=== PATIENT | female | born 1990 | race Caucasian/White ===

== ENCOUNTER 2017-10-07 05:10 | Inpatient (IN) | payer BC, SELFPAY ==
[2017-10-07] VITALS (19 sets, daily range): BP systolic 97–128; BP diastolic 34–82; PULSE 71–98; RESP 11–20; TEMP 36.3–37.3; O2SAT 97–100; BMI 30.9
[2017-10-07] MEDS: Lactated Ringers 1,000 ML 999 ML IV (05:55)
[2017-10-07 06:22] LABS: Absolute Lymphocyte Count 1.85 X10^3/ul (0.83-4.51); Absolute Neutrophil Count 6.2 X10^3/uL (2.0-7.7); Basophil# 0.02 X10^3/uL; Basophil% 0.2 % (0-1); Eosinophil# 0.08 X10^3/uL; Eosinophils% 0.9 % (0-5); Hematocrit 31.5 % (37-47); Hemoglobin 9.9 g/dl (12.0-15.0); Lymphocyte # 1.85 X10^3/ul (4.0); Lymphocyte % 20.3 % (19-41); Mean Corp Hgb Conc 31.4 g/gl (32-36); Mean Corpuscular Hgb 26.5 pg (27.0-32.0); Mean Corpuscular Volume 84.2 fL (81-99); Mean Platelet Vol. 8.7 fl (6.2-12.0); Monocyte# 0.92 X10^3/uL; Monocyte% 10.1 % (0-10); Neutrophil # 6.18 X10^3/uL (2.7-7.7); Platelet Count 266 K/mm3 (150-450); RBC Distribution Width CV 14.3 % (11.6-14.6); RBC Distribution Width SD 42.5 fl (35.1-43.9); Red Blood Count 3.74 M/mm3 (4.2-5.4); White Blood Count 9.1 K/mm3 (4.4-11.0)
[2017-10-07 06:23] LABS: POSITIVE COUNT NO; POSITIVE DIFFERENTIAL NO; POSITIVE MORPHOLOGY NO
[2017-10-07] MEDS: Lactated Ringers 1,000 ML 150 ML IV (06:57)
[2017-10-07] MEDS: Sodium Citrate/Citric Acid 30 ML UDC PO (06:58)
[2017-10-07] MEDS: Cefazolin 2 GM in 0.9% Normal Saline 100 ML IV (07:25)
[2017-10-07] MEDS: Oxytocin 30 units/NS 500 ml 30 UNITS/500 ML IV.SOLN 167 UNITS IV (07:49)
--- NOTE | 2017-10-07 08:25 | PCM.OB.CSR ---
Delivery Classification: Scheduled Final GEENA: 10/14/17 Final GEENA Source: US <20 weeks Gestational age: 39 Weeks and 0 Days Indications for : Repeat Elective Description of Procedure: The patient was taken to the operating room. She was prepped and draped in the dorsal supine position with a leftward tilt. A Pfannenstiel skin incision was made approximately 2 cm above the symphysis pubis and carried through to underlying layer fascia with the scalpel. The fascia was incised incised in the midline and extended laterally with the Mcmahan scissors. The fascia was dissected off the rectus muscles with blunt and sharp dissection. The rectus muscles were in the midline and the peritoneum was entered [bluntly]. The peritoneal incision was stretched and the bladder blade was placed. The uterine incision was made in a low transverse fashion with the scalpel and extended superiorly and inferiorly with blunt dissection. [The amniotic membranes were ruptured bluntly and clear amniotic fluid returned]. The 's head was brought to the incision in the flexed position and delivered without difficulty. The remainder of the infant was delivered with gentle traction and fundal pressure in the standard fashion. The mouth and nares were bulb suctioned. The cord was clamped and cut as the was stimulated. [Cord clamping was delayed]. The infant was handed off to the waiting nursing staff. The placenta was delivered with fundal massage and gentle traction in the standard fashion. The uterus was exteriorized and cleared of all clots and debris. [The cervix was dilated with a ring forcep]. The uterine incision was closed with #1 Vicryl in a running locked fashion. A second layer of the same suture was used in an imbricating fashion and the incision was examined for hemostasis. The uterus was placed back into the peritoneal cavity and hemostasis was assured. The rectus muscles were examined and any bleeding was Bovie cauterized. The parietal peritoneum and rectus muscles were closed en bloc with an 0 Vicryl running suture.. The rectus fascia was examined and the bleeding was Bovie cauterized and the rectus fascia was closed with [1 Vicryl] suture in a running standard fashion. The subcutaneous tissue was examining and any bleeding was Bovie cauterized. The skin was closed in a subcuticular fashion with a 4-0 Monocryl in a subcuticular fashion. I performed the entire procedure with assistance.. All sponge, lap, and needle counts were correct. The patient was taken to her room for recovery in a stable condition. Amniotic Membrane Rupture Type: Artificial Amniotic Fluid Description: Clear Placenta Disposition: [facility] Specimen(s) sent to pathology: none Drain: Hearn to straight drain Fluids Replaced: LR Cord Entanglement: None Cord Vessel Description: 3 Vessels Esitmated Blood Loss (ml): 900cc Infant Gender: Male (1 minute): 8 (5 minute): 9 Delayed cord clamping: Yes Pre-op Antibiotic Given: Ancef 2 grams IV x1 Complications: None - Admit VTE Documentation VTE Present on Admission: No VTE Mechan Device Prophylaxis: SCD's VTE Pharm Prophylaxis ordered?: No Reason prophylaxis not ordered:: Procedure Not Indicated
[2017-10-07] MEDS: Methylergonovine 0.2 MG/ML Ampul IM (08:47)
--- NOTE | 2017-10-07 09:00 | NURSING ---
moderate amount of clots expelled with uterine massage. Iv bolus at 999cc/hr. Pad a weighed, 101cc blood loss. Methergine 0.2 mg given at 0847.
[2017-10-07] MEDS: Lactated Ringers 1,000 ML 100 ML IV (09:13)
[2017-10-07] MEDS: DiphenhydrAMINE 25 MG Capsule PO ×2 (11:50→20:27)
[2017-10-07] MEDS: 0.9% Saline Lock 10 ML Syringe IV ×4 (11:50→18:21)
[2017-10-07] MEDS: Ketorolac 30 MG/ML Syringe IV ×2 (11:50→18:21)
[2017-10-07] MEDS: Ondansetron 4 MG/2 ML Vial IV (12:32)
[2017-10-08] VITALS (7 sets, daily range): BP systolic 103–126; BP diastolic 68–77; PULSE 85–103; RESP 16–18; TEMP 36.6–36.8; O2SAT 97–100
[2017-10-08] MEDS: Ketorolac 30 MG/ML Syringe IV ×4 (00:18→17:40)
[2017-10-08] MEDS: Senna/Docusate Sodium 1 Tablet PO ×3 (00:18→21:31)
[2017-10-08] MEDS: 0.9% Saline Lock 10 ML Syringe IV ×5 (00:19→17:48)
[2017-10-08 06:25] LABS: Hematocrit 25.9 % (37-47); Hemoglobin 8.2 g/dl (12.0-15.0); Mean Corp Hgb Conc 31.7 g/gl (32-36); Mean Corpuscular Hgb 27.1 pg (27.0-32.0); Mean Corpuscular Volume 85.5 fL (81-99); Mean Platelet Vol. 8.5 fl (6.2-12.0); Platelet Count 224 K/mm3 (150-450); RBC Distribution Width CV 14.2 % (11.6-14.6); Red Blood Count 3.03 M/mm3 (4.2-5.4); White Blood Count 10.6 K/mm3 (4.4-11.0)
[2017-10-08 06:30] LABS: Scan Indicated on CBC? Y/N NO
--- NOTE | 2017-10-08 06:46 | PCM.PN.OB ---
Subjective: pain well controlled, average lochia, joseph. regular diet - Physical Exam General: Alert, Cooperative, No apparent distress Abdomen: Soft, Distended - moderately, softly, Tender - appropriately Extremities: Edema - 1! Skin: Incision - bandage clean, dry and intact Vital Signs Temp Pulse Resp BP Pulse Ox 98 F 90 16 103/68 98 10/08/17 05:30 10/08/17 05:30 10/08/17 05:30 10/08/17 05:30 10/08/17 05:30 Oxygen Delivery Method Room Air Weight: 79.2 kg Body Mass Index (BMI) 30.9 Intake and Output for Last 24 Hours 10/06/17 10/07/17 10/08/17 23:59 23:59 23:59 Intake Total 3904 / 3904 Output Total 3651 / 3651 1800 / 1800 Balance 253 / 253 -1800 / -1800 Laboratory Tests Past 24 Hrs 10/07/17 10/08/17 05:55 05:40 WBC 10.6 RBC 3.03 L Hgb 8.2 L Hct 25.9 L MCV 85.5 MCH 27.1 MCHC 31.7 L RDW 14.2 RDW Differential 43.0 Plt Count 224 MPV 8.5 Blood Type B POSITIVE Antibody Screen NEGATIVE Medical Necessity - Tobacco Use Smoking Status: Never smoker Assessment/Plan All Active Problems (Last Reviewed 10/04/17 @ 10:05 by Francie Rivers) Segmental and somatic dysfunction of thoracic region (Acute) Segmental and somatic dysfunction of sacral region (Acute) Segmental and somatic dysfunction of cervical region (Acute) Segmental and somatic dysfunction of lumbar region (Acute) POD#1 doing well routine care and doing well
[2017-10-09] MEDS: Ketorolac 30 MG/ML Syringe IV (00:20)
[2017-10-09] MEDS: 0.9% Saline Lock 10 ML Syringe IV (00:20)
[2017-10-09 02:55] VITALS: BP 101/56; PULSE 97; RESP 18; TEMP 36.6; O2SAT 95
[2017-10-09] MEDS: Naproxen 250 MG Tablet PO (05:34)
[2017-10-09 07:44] VITALS: BP 112/60; PULSE 79; RESP 18; TEMP 36.7; O2SAT 97
--- NOTE | 2017-10-09 09:27 | PCM.DCCSEC ---
Discharge Diet: No Restrictions Discharge Activity: May Not Drive - for 2 weeks or while taking narcotic pain meds., May Shower, May Take a Tub Bath - in 7 days. May resume sexual activity in: 4-6 weeks Lifting Restrictions: 20 pounds Additional Activity Instructions:: Nothing in the vagina for 4-6 weeks. You may return to work/school in 6 weeks. Call your doctor if your incision/area has: Continuous Slow Oozing, Sudden Increased Bleeding, Increased Pain/ Swelling, Increased Redness, Foul Smelling Discharge Call your doctor if you observe: Fever of 101 or Higher, Inability to urinate, Inability to have a bowel movement, Using more than one pad per hour, Calf discomfort Suture Line Care: Avoid Pulling/Pushing, Avoid Pinching/Bending Remove Dressing in (days):: 2 Cleanse incision/area with: Soap & Water, Keep Dressing Clean & Dry Additional Instructions: If you experience any of the following, contact your healthcare provider. Bleeding that soaks a pad every hour for 2 hours Fever 100.4 or higher Unrelieved incision or abdominal pain Swelling, redness, discharge or bleeding from your incision or episiotomy site Your incision begins to separate Problems urinating (including inability to urinate or burning while urinating). Visual changes Severe headache Flu-like symptoms Pain or redness in one of both of your breasts Pain, warmth, tenderness or swelling in your legs, especially the calf area Frequent nausea and vomiting Symptoms of depression or anxiety If you experience any of the following, call 911 or go to the nearest Emergency Room. Chest pain Problems breathing Seizure activity Partial or complete paralysis of a body part, slurred speech, weakness or drooping of the face, or a sudden inability to walk or hold your balance Allergies/Adverse Reactions: Allergies tree nut Allergy (Verified 10/07/17 06:24) Unknown Medications to take at Discharge Acetaminophen [Tylenol Tablet] 325 - 650 mg PO Q6H PRN PRN 04/01/16 Vits [Prenatabs FA ] 1 tablet PO DAILY 04/01/16 Follow-Up: Call to make an appointment with your doctor for an incision check in 1-2 weeks. You will also need a 6 week post- follow up appointment. Test results from this visit will be discussed in further detail at your follow-up appointment, if applicable. Please Follow Up With: Milagro Alonso MD - Incision Check When: By 2 weeks post- - if Dr. Alonso unavailable may see other provider Please Follow Up With: Milagro Alonso MD - 6 wk PP visit When: By 6 weeks post- - If Dr. Alonso unavailable may see other provider Primary Care Physician: Benny Diego DO [Primary Care Provider] - Proposed Discharge Date: 10/09/17
--- NOTE | 2017-10-09 09:30 | DCINST_ITS ---
Discharge Diet: No Restrictions Discharge Activity: May Not Drive - for 2 weeks or while taking narcotic pain meds., May Shower, May Take a Tub Bath - in 7 days. May resume sexual activity in: 4-6 weeks Lifting Restrictions: 20 pounds Additional Activity Instructions:: Nothing in the vagina for 4-6 weeks. You may return to work/school in 6 weeks. Call your doctor if your incision/area has: Continuous Slow Oozing, Sudden Increased Bleeding, Increased Pain/ Swelling, Increased Redness, Foul Smelling Discharge Call your doctor if you observe: Fever of 101 or Higher, Inability to urinate, Inability to have a bowel movement, Using more than one pad per hour, Calf discomfort Suture Line Care: Avoid Pulling/Pushing, Avoid Pinching/Bending Remove Dressing in (days):: 2 Cleanse incision/area with: Soap & Water, Keep Dressing Clean & Dry Additional Instructions: If you experience any of the following, contact your healthcare provider. * Bleeding that soaks a pad every hour for 2 hours * Fever 100.4 or higher * Unrelieved incision or abdominal pain * Swelling, redness, discharge or bleeding from your incision or episiotomy site * Your incision begins to separate * Problems urinating (including inability to urinate or burning while urinating) . * Visual changes * Severe headache * Flu-like symptoms * Pain or redness in one of both of your breasts * Pain, warmth, tenderness or swelling in your legs, especially the calf area * Frequent nausea and vomiting * Symptoms of depression or anxiety If you experience any of the following, call 911 or go to the nearest Emergency Room. * Chest pain * Problems breathing * Seizure activity * Partial or complete paralysis of a body part, slurred speech, weakness or drooping of the face, or a sudden inability to walk or hold your balance Allergies/Adverse Reactions: Allergies tree nut Allergy (Verified 10/07/17 06:24) Unknown Medications to take at Discharge Acetaminophen [Tylenol Tablet] 325 - 650 mg PO Q6H PRN PRN 04/01/16 Vits [Prenatabs FA ] 1 tablet PO DAILY 04/01/16 Follow-Up: Call to make an appointment with your doctor for an incision check in 1-2 weeks. You will also need a 6 week post- follow up appointment. Test results from this visit will be discussed in further detail at your follow- up appointment, if applicable. Please Follow Up With: Milagro Alonso MD - Incision Check When: By 2 weeks post- - if Dr. Alonso unavailable may see other provider Please Follow Up With: Milagro Alonso MD - 6 wk PP visit When: By 6 weeks post- - If Dr. Alonso unavailable may see other provider Primary Care Physician: Benny Diego DO [Primary Care Provider] - Proposed Discharge Date: 10/09/17
--- NOTE | 2017-10-09 09:39 | PCM.PN.OB ---
Subjective: Patient ambulating around room at this time. at bedside holding at this time. Patient denies RANGEL, dizziness and scotoma. Patient notes no issue with urination or ambulation. Patient has constipated last night, but after taking stool softener she has been able to pass stool without any issue and is no longer constipated. Incisional pain has been well controlled, tolerating PO Naproxyn in managing pain. Patient and report a desire for discharge today. Objective: Nipples with cracks, blisters or ecchymoses Abdomen NT x 4 quadrants, Dressing dry and intact without areas of exudate or blood on dressing +2/4 reflexes in LE, no edema noted, negative calf tenderness reported BL Scant rubra lochia - Physical Exam General: Alert, Oriented x3, Cooperative HEENT: Atraumatic, Normocephalic Neck: Supple Lungs: Normal air movement Cardiovascular: Regular rate, No murmurs Abdomen: Soft, Non Tender, Non-Distended Extremities: No edema, Capillary Refill Less than 3 Seconds, No Calf Tenderness Skin: No rashes, No breakdown Musculoskeletal: No Tenderness to Palpation of Joints or Extremities Neurological: Cranial nerves II-XII grossly intact, Deep Tendon Reflexes 2+/4 and Symmetrical Psych/Mental Status: Normal Affect, Appropriate, Alert and oriented to time, place, person, mood and affect Vital Signs Temp Pulse Resp BP Pulse Ox 98.1 F 79 18 112/60 97 10/09/17 07:44 10/09/17 07:44 10/09/17 07:44 10/09/17 07:44 10/09/17 07:44 Oxygen Delivery Method Room Air Weight: 174 lb 9.698 oz Body Mass Index (BMI) 30.9 Intake and Output for Last 24 Hours 10/07/17 10/08/17 10/09/17 23:59 23:59 23:59 Intake Total 3904 / 3904 Output Total 3651 / 3651 3000 / 3000 Balance 253 / 253 -3000 / -3000 Medical Necessity - Tobacco Use Smoking Status: Never smoker Assessment/Plan All Active Problems (Last Reviewed 10/04/17 @ 10:05 by Francie Rivers) Segmental and somatic dysfunction of thoracic region (Acute) Segmental and somatic dysfunction of sacral region (Acute) Segmental and somatic dysfunction of cervical region (Acute) Segmental and somatic dysfunction of lumbar region (Acute) A: 27 y/o , s/p LTCS, PPD # 2, Normal Course P: 1) Discharge to home pending discharge 2) Anticipatory PP teaching done 3) RTC in 2 and 6 weeks for f/u visits at [facility] Theodora SAUCEDA
--- NOTE | 2017-10-13 19:50 | NURSING ---
follow up call attempted, phone disconncted
== END 2017-10-09 10:50 | disposition home or self-care (01) | DRG 766 ==
PROVIDERS: Obstetrics & Gynecology; Admitting Provider Obstetrics & Gynecology; Family Provider Student in an Organized Health Care Education/Training Program; PCP Student in an Organized Health Care Education/Training Program; Visit Provider Obstetrics & Gynecology
PROC: (CPT 59514; principal; 2017-10-07 07:15)
DX: O34.211 Maternal care for low transverse scar from previous cesarean delivery (principal); Z3A.39 39 weeks gestation of pregnancy; Z37.0 Single live birth
CPT/HCPCS: 85025; 85027; 86850; 86900; 99218; J7120; A4216; G0378; J2405

== ENCOUNTER 2018-10-10 14:46 | Emergency (ER) | payer BC, SELFPAY ==
[2018-10-10 14:50] VITALS: BP 146/82; PULSE 110; RESP 16; TEMP 36.7; O2SAT 97; BMI 26.5
--- NOTE | 2018-10-10 16:00 | ED.RN ---
PT HAS MADE MULTIPLE TRIPS DOWN THE HALLWAY TO THE BATHROOM WITHOUT DIFFICULTY.
[2018-10-10 16:39] VITALS: PULSE 86; RESP 16; O2SAT 99
--- NOTE | 2018-10-10 16:57 | ED.VISSUMM ---
- ER Visit Summary Date of Service: 10/10/18 Chief Complaint: [Back pain] History of Present Illness: The patient is a 28 F [presents to the emergency department complaint of back pain that started yesterday. Patient states she woke up with some soreness in the lower mid back. Patient states the discomfort slowly worsened throughout the day. Patient describes pain of an odd numb feeling to both lower extremities. She denies any change in bowel or bladder function. She denies any saddle anesthesia. She denies weakness in extremities. She denies urinary symptoms. She denies any trauma to her back. She has not had pain like this before. She denies any fever or recent illness. Patient is currently nursing a 1-year-old and has used ibuprofen and Tylenol but not getting much relief. Patient rates her pain currently as a 3 out of 10.] Physical Examination: [HEENT-PERRLA, EOMI. Cranial nerves II through XII grossly intact. TMs clear. Mucous membranes moist. No adenopathy. Cardiovascular-regular rate and rhythm without murmur or ectopy Lungs-clear to auscultation, chest wall stable without crepitus or subcu emphysema Abdomen-normoactive bowel sounds, soft, nontender, no rebound or rigidity, no peritoneal signs. Back exam-patient has no real tenderness over the thoracic or lumbar spine on palpation. There is no erythema or warmth noted to her back. Patient has negative straight leg raises. Deep tendon reflexes are plus 2 out of 4 bilaterally at the patella and Achilles. Patient has normal L5 extension bilaterally. Extremities-intact ?4, normal range of motion, normal pulses, atraumatic] Test Results: [None indicated] Emergency Department Course and Treatment: [I discussed obtaining an x-ray with patient given that she did have complaint of discomfort in the midline of her lumbar spine although without any injury I felt this would be low yield for ascertaining etiology of her pain. We discussed obtaining it to evaluate for any type of potential lytic lesion but she understands that it would not show nerves her discs. At this point patient is patient understands she would need an MRI to evaluate for herniated disks. Patient has no indication for emergent MRI and no concerning red flag symptoms. Patient has no signs or symptoms of cauda equina.] Treatment Plan: [Patient will be given a prescription for a Medrol Dosepak. Patient will continue with ibuprofen or Aleve for discomfort. Patient will follow up with her primary care physician. Patient advised to return if worsening pain, weakness in extremities, change in bowel bladder function, or conditions worsen anyway.] Disposition: [Discharged home stable condition] Impression: [Low back pain] This note was generated with [employer] dictation software. It may contain incorrect words, spelling, and punctuation that were not noted in review of the chart prior to signing ED Disposition - Plan for ED Patient: Referrals: Benny Diego DO [Primary Care Provider] -
--- NOTE | 2018-10-10 17:01 | ED.DEP ---
ED Disposition - Plan for ED Patient: Instructions: BACK AND NECK PAIN, General Prescriptions: MethylPREDNISolone DosePak [Medrol DosePak] 4 mg PO UD #1 box Prescription Printed Referrals: Benny Diego DO [Primary Care Provider] - 3-5 Days
[2018-10-10 17:10] VITALS: BP 136/78; PULSE 87; RESP 16; O2SAT 100
== END 2018-10-10 17:16 | disposition home or self-care (01) ==
LOC: ED 17:13
PROVIDERS: Emergency Provider Emergency Medicine; Family Provider Student in an Organized Health Care Education/Training Program; PCP Student in an Organized Health Care Education/Training Program
DX: M54.5 Low back pain (principal)
CPT/HCPCS: 99282

== ENCOUNTER 2019-03-04 17:00 | Emergency (ER) | payer BC, SELFPAY ==
[2018-11-13 17:17] VITALS: BMI 26.5
[2019-03-04 17:02] VITALS: BP 149/96; PULSE 115; RESP 16; TEMP 36.6; O2SAT 99; BMI 23.9
--- NOTE | 2019-03-04 18:05 | ED.DCSUM_ITS ---
- ER Visit Summary Date of Service: 03/04/19 Chief Complaint: Laceration History of Present Illness: The patient is a 28 F with a right laceration. Patient is 16 weeks . Up-to-date with immunizations. Physical Examination: 2 cm laceration transverse across the middle phalanx. Nothing deep. Neurovascular intact distally. Test Results: None indicated Emergency Department Course and Treatment: Will anesthetize, clean, explored, and closed with simple interrupted sutures. Follow-up in about 10 days for suture removal. Return for signs of infection right away. Treatment Plan: As above Disposition: Discharge Impression: 1. Right thumb laceration 2 cm This note was generated with [employer] dictation software. It may contain incorrect words, spelling, and punctuation that were not noted in review of the chart prior to signing ED Disposition - Plan for ED Patient: Referrals: Benny Diego DO [Primary Care Provider] -
--- NOTE | 2019-03-04 18:06 | ED.DEP ---
ED Disposition - Plan for ED Patient: Instructions: LACERATION, Hand Referrals: Benny Diego DO [Primary Care Provider] - 10 Day for suture removal
== END 2019-03-04 18:53 | disposition home or self-care (01) ==
PROVIDERS: Emergency Provider Emergency Medicine; Family Provider Student in an Organized Health Care Education/Training Program; PCP Student in an Organized Health Care Education/Training Program
DX: O9A.212 Injury, poisoning and certain other consequences of external causes complicating pregnancy, second trimester (principal); S61.011A Laceration without foreign body of right thumb without damage to nail, initial encounter; Z3A.16 16 weeks gestation of pregnancy; X58.XXXA Exposure to other specified factors, initial encounter; Y93.9 Activity, unspecified; Y92.9 Unspecified place or not applicable
CPT/HCPCS: 12001; 99283

== ENCOUNTER 2019-08-14 06:42 | Inpatient (IN) | payer BC, SELFPAY ==
[2019-03-13 10:03] VITALS: BMI 23.9
--- NOTE | 2019-08-06 15:51 | PCM.HP.BLA ---
History and Physical Date of Admission: 08/16/19 HPI: The patient is a 29 year old female presenting for pre-operative visit. She is scheduled for?, for?prevoius c/s on?08/16/2019. ??Procedure discussed along with risks, benefits and complications. ?Other alternatives discussed for management. Consent form signed??Yes.? PAST MEDICAL HISTORY PAST MEDICAL HISTORY Diagnosis Date ? Abnormal Pap smear of cervix 2011 ? Pt unsure of treatment , believes it was cryo ? Anemia ? ? Complication of anesthesia ? ? N&V ? Seasonal allergies ? ? ? PAST SURGICAL HISTORY PAST SURGICAL HISTORY Procedure Laterality Date ? BREAST AUGMENTATION W/PROSTHETIC IMPLANT ? ? ? DELIVERY ONLY N/A 04/01/2016 ? DELIVERY ONLY ? 10/07/2017 ? C/S transverse ? CRYOCAUTERY OF CERVIX ? ? ? PAST SURGICAL HISTORY OF ? 2011 ? lymph node under chin removed ? REMOVAL ADENOIDS,PRIMARY,<12 Y/O ? ? ? Adenoidectomy ? REMOVAL OF TONSILS,<12 Y/O ? ? ? Tonsillectomy ? ? CURRENT MEDICATIONS Current Outpatient Medications Medication Sig Dispense Refill ? cetirizine (ZYRTEC) 10 mg tablet ? diphenhydrAMINE (BENADRYL) 25 mg capsule diphenhydrAMINE Diphenhydramine Hcl Active 25 MG AT BEDTIME November 13, 2018 5:15pm 11-13-2018 ?[facility] ([id number]) ? ? ? cholecalciferol, vitamin D3, (VITAMIN D3 ORAL) Take 5,000 Units by mouth once daily. ? ? ? EPINEPHrine (EPIPEN 2-ARCHANA) 0.3 mg/0.3 mL auto-injector DIRECTED AT ONSET OF EXPOSURE TO ALLERGEN 2 Each 1 ? VIT/IRON FUMARATE/FA ( FORMULA & FOLIC ACD ORAL) Take ?by mouth. ? ? ? No current facility-administered medications for this visit.? ? ALLERGIES:?Bee Pollen; Seasonal Allergies; Tree Nuts ? PERSONAL HISTORY:? SOCIAL HISTORY Social History ? Tobacco Use ? Smoking status: Never Smoker ? Smokeless tobacco: Never Used Substance Use Topics ? Alcohol use: Not Currently ? ? Comment: social, not while ? Drug use: No ? FAMILY HISTORY:? FAMILY HISTORY FAMILY HISTORY Problem Relation Age of Onset ? No Known Problems Mother ? ? Lipids Father ? ? Hypertension Father ? ? other (basal cell ca) Father ? ? No Known Problems Brother ? ? No Known Problems Brother ? ? Blood Disease Maternal Grandmother ? ? Osteoporosis Maternal Grandmother ? ? Arthritis Paternal Grandmother ? ? Colon Cancer Paternal Grandmother ? ? Heart Paternal Grandmother ?a fib, leaky valve ? Hypertension Paternal Grandmother ? ? Alzheimer's Disease Paternal Grandfather ? ? Allergies Maternal Uncle ? ? Thyroid Paternal Aunt ? ? No Known Problems Daughter ? ? Heart Son ?Bicuspid aortic valve and mild aortic stenosis ? REVIEW OF SYMPTOMS: GENERAL: denies fevers or chills ENDOCRINOLOGY: has not been on steroids Cardiology : denies palpitations or chest pain Respiratory: denies SOB or cough Hematology: denies history of prolonged bleeding or easy bruising or VTE Allergy: Denies history of personal or family history of allergy to anesthesia ? ? PHYSICAL EXAMINATION: ? VITALS:?Last menstrual period 11/09/2018, not currently . ? GENERAL:??The patient is well nourished, well hydrated in no acute distress. ?, The patient is oriented to time, place, and person. NECK:?Supple. No lynphadenopathy, normal thyroid, no thyromegaly. LUNGS:?Clear to auscultation bilaterally. no wheezes, rhonchi or rales HEART:?Regular rate and rhythm, Normal heart sounds and No murmurs or gallops GENITALIA:?Normal external genitalia, Urethral meatus normal, Bladder nontender, normal vagina and normal vaginal tone, normal cervix, normal uterus, size and consistency, normal adnexa without masses or tenderness and perineum WNL ? ? IMPRESSION:?Estimated Date of Delivery: 08/20/19? ? PLAN:???The risks/benefits/alternatives and personal involved for the planned?c/s?were reviewed with the patient. Her questions were answered to her satisfaction and she desires to proceed. ?Consent was signed. ?I reviewed with her postop instructions and expectations. ? ? I have reviewed and updated past medical and surgical history, medications and allergies. This H&P was completed in my office on 08/06/2019. Procedure Criteria Procedure Type: Essential Procedure Essential: Yes Criteria Statement: On 05/22/2019 the [facility] ([facility]) Public Order signed by [facility] Director Lula Epps M.D., regarding the Management of Non-Essential Surgeries and Procedures for the purpose of preserving Personal Protective Equipment (PPE) and critical hospital capacity and resources within [place] went into effect as of 05/23/2019 at 5:00PM. According to the [facility] Public Order: This action will remain in full force and effect until the State of Emergency declared by the Governor no longer exists or the Director of the [facility] rescinds or modifies this Order. This [facility] order stated all non-essential or elective surgeries and procedures that utilize PPE should be delayed unless there is undue risk to the current or future health of a patient. After reviewing the aforementioned [facility] Public Order and the patient's clinical case, I have determined that the scheduled procedure meets the criteria to go forward. Risk to Patient if Procedure Delayed: Threat to patient's life if surgery or procedure is delayed
[2019-08-09 14:44] VITALS: BMI 23.9
[2019-08-14] VITALS (34 sets, daily range): BP systolic 96–139; BP diastolic 61–90; PULSE 82–116; RESP 15–18; TEMP 36.5–36.9; O2SAT 93–98; BMI 31.8
[2019-08-14] MEDS: Lactated Ringers 1,000 ML 50 ML IV (07:00)
[2019-08-14 07:15] LABS: Absolute Lymphocyte Count 1.44 X10^3/uL (0.83-4.51); Basophil# 0.03 X10^3/uL; Basophil% 0.3 % (0-1); Eosinophil# 0.04 X10^3/uL; Eosinophils% 0.4 % (0-5); Hematocrit 41.5 % (37-47); Hemoglobin 14.2 g/dL (12.0-15.0); Lymphocyte # 1.44 X10^3/ul (4.0); Lymphocyte % 12.7 % (19-41); Mean Corp Hgb Conc 34.2 g/dL (32-36); Mean Corpuscular Hgb 33.3 pg (27.0-32.0); Mean Corpuscular Volume 97.2 fL (81-99); Mean Platelet Vol. 8.5 fl (6.2-12.0); Monocyte# 0.78 X10^3/uL; Monocyte% 6.9 % (0-10); NRBC Flagged by Analyzer 0 % (0-5); Neutrophil # 8.95 X10^3/uL (2.7-7.7); Neutrophil % 79.2 % (47-70); Platelet Count 193 K/mm3 (150-450); RBC Distribution Width CV 13.2 % (11.6-14.6); RBC Distribution Width SD 46.6 fl (35.1-43.9); Red Blood Count 4.27 M/mm3 (4.2-5.4); White Blood Count 11.3 K/mm3 (4.4-11.0)
[2019-08-14] MEDS: 0.9% Saline Lock 10 ML Syringe IV (09:07)
[2019-08-14] MEDS: Ondansetron 4 MG/2 ML Vial IV (09:07)
[2019-08-14] MEDS: Oxytocin 30 units/NS 500 ml 30 UNITS/500 ML IV.SOLN 334 UNITS IV (11:20)
--- NOTE | 2019-08-14 11:57 | PCM.OPRPT ---
Problem List (1) , delivered Status: Acute (2) Second degree perineal laceration Status: Acute (3) Laceration of labia minora Status: Acute Vaginal Delivery Maternal Presentation: Active Labor Amniotic Membrane Rupture Type: Artificial Amniotic Fluid Description: Clear Final GEENA: 08/20/19 Final GEENA Source: US <20 weeks Gestational age: 39 Weeks and 1 Days Date of Procedure: 08/14/19 Pre-Operative Diagnosis: Spontaneous labor TOLAC after 2 sections Post-Operative Diagnosis: Surgery/ Procedure Performed: Spontaneous Vaginal Delivery Type of Anesthesia: Epidural - Epidural placed due to , no medciation instilled. Description of Procedure: Progressed to completed with urge to push. notified of patient delivery and to come to hospital. Epidural placed but no medication dosed as she was wanting unmedicated delivery. Successful of viable male over 2nd degree perineal laceration and left labial laceration. head delivered with body forthcoming without delay. Placed on maternal abdomen with spontaneous cry, mouth and nares suctioned for secretions. Pitocin started for active 3rd stage management. Cord clamped and cut after pulsations ceased by FOB. Placenta delivered intact with expression via anmol, 3 vessel cord. Perineum inspected and revealed 2nd degree perineal laceration repaired with 3.0 vicryl. and left labial laceration repaired with 3.0 rapide with lidocaine. Well approximated and hemostasis achieved. Fundus firm, EBL 450ml. Vaginal sweep completed by me, sponge and instrument count correct. Mom and baby stable, family bonding well. Planning to breastfeed. present on unit and updated on delivery. Presentation: Vertex Placental Delivery Description: Spontaneous Placenta Disposition: [facility] Cord Vessel Description: 3 Vessels Cord Entanglement: None Estimated Blood Loss: 450 ml Infant A gender: Male (1 minute): 8 (5 minute): 9 Episiotomy Description: None Laceration: Perineal Extension/lac - left labial, 2nd degree Medications given after delivery: IV Pitocin Complications: None
[2019-08-14] MEDS: Naproxen 250 MG Tablet 500 MG PO ×2 (12:28→21:49)
[2019-08-14] MEDS: Acetaminophen 500 MG Tablet 1000 MG PO (17:26)
[2019-08-14] MEDS: Loratadine 10 MG Tablet PO (23:24)
[2019-08-15 03:27] VITALS: BP 110/80; PULSE 83
[2019-08-15 03:30] VITALS: BP 110/80; PULSE 83; RESP 18; TEMP 36.6
[2019-08-15] MEDS: Acetaminophen 500 MG Tablet 1000 MG PO ×2 (03:59→13:23)
--- NOTE | 2019-08-15 08:49 | PCM.PN.OB ---
Patient Problems: Active and Suspected Problems (Last Reviewed 08/09/19 @ 14:41 by Francie Rivers) , delivered (Acute) Second degree perineal laceration (Acute) Laceration of labia minora (Acute) Subjective: Doing well per patient and nursing staff. Ambulating and taking PO without difficulty. Voiding and passing flatus. Lochia normal. without difficulty. Pain controlled. Planning D/C home today. - Physical Exam Vitals/I&O's: Vital Signs Temp Pulse Resp BP Pulse Ox 98 F 83 18 110/80 94 08/15/19 03:30 08/15/19 03:30 08/15/19 03:30 08/15/19 03:30 08/14/19 08:22 Oxygen Delivery Method Room Air Weight: 180 lb Body Mass Index (BMI) 31.8 Intake and Output for Last 24 Hours 08/13/19 08/14/19 08/15/19 23:59 23:59 23:59 Intake Total 601.67 / 601.67 500 / 500 Output Total 400 / 400 Balance 201.67 / 201.67 500 / 500 General: Alert, Oriented x3, Cooperative HEENT: Atraumatic, Normocephalic Neck: Trachea Midline Lungs: Clear to auscultation, Normal air movement, No rhonchi, No wheeze Cardiovascular: Regular rate, Regular Rhythm, No murmurs Abdomen: Bowel Sounds Present, Soft - Fundus firm 3 below U Extremities: No edema - Capri's negative Psych/Mental Status: Normal Affect, Appropriate Laboratory Results 08/14/19 07:00: Blood Type B POSITIVE, Antibody Screen NEGATIVE 08/14/19 08:10: COVID-19 ([place]) Not Detected Current Medications Acetaminophen (Tylenol) 1,000 mg PO Q8H PRN PRN PRN Reason: Pain Score 1-3/10 Last Admin: 08/15/19 03:59 Dose: 1,000 mg Documented by: Bisacodyl (Dulcolax) 10 mg RECTAL UD PRN PRN Reason: If no BM Dibucaine (Dibucaine) 1 applic TOPICAL TID PRN PRN; Protocol PRN Reason: Discomfort Hydrocortisone (Hytone) 1 applic TOPICAL TID PRN PRN; Protocol PRN Reason: Discomfort Loratadine (Claritin) 10 mg PO DAILY [facility] Last Admin: 08/14/19 23:24 Dose: 10 mg Documented by: Methylergonovine Maleate (Methergine) 0.2 mg IM X1 PRN PRN Reason: Excess bleeding/uterine atony Naproxen (Naprosyn) 500 mg PO Q8H PRN PRN PRN Reason: Pain Score 1-3/10 Last Admin: 08/14/19 21:49 Dose: 500 mg Documented by: Ondansetron HCl (Zofran) 4 mg IV Q4H PRN PRN PRN Reason: Nausea Oxycodone HCl (Oxyir) 2.5 - 5 mg PO Q4H PRN PRN PRN Reason: Pain Score 4-10/10 Senna/Docusate Sodium (Senokot-S, Mey-Colace) 1 - 2 tablet PO DAILY PRN PRN PRN Reason: Constipation Simethicone (Mylicon) 80 mg PO PCHS PRN PRN Reason: Indigestion/Stomach pain Sodium Chloride () 5 - 15 ml IV UD PRN PRN Reason: SALINE FLUSH Medical Necessity - Tobacco Use Smoking Status: Never smoker Assessment/Plan All Active Problems (Last Reviewed 08/09/19 @ 14:41 by Francie Rivers) , delivered (Acute) Second degree perineal laceration (Acute) Laceration of labia minora (Acute) Back pain (Acute) and not yet delivered (Acute) Hives (Acute) Allergic dermatitis (Acute) URI (upper respiratory infection) (Acute) Segmental and somatic dysfunction of pelvic region (Acute) Segmental and somatic dysfunction of thoracic region (Acute) Segmental and somatic dysfunction of sacral region (Acute) Segmental and somatic dysfunction of cervical region (Acute) Segmental and somatic dysfunction of lumbar region (Acute) A: Second degree perineal laceration P: 1) Routine and instructions 2) Follow up in 2 weeks and 6 weeks 3) D/C home today.
[2019-08-15 08:52] VITALS: BP 116/74; PULSE 93
[2019-08-15 08:53] VITALS: BP 116/74; PULSE 93; RESP 16; TEMP 37
--- NOTE | 2019-08-15 08:56 | DCINST_ITS ---
Discharge Diet: No Restrictions Discharge Activity: Return to Normal Activity, May not drive while taking narcotic pain medications., May Shower May resume sexual activity in: 4-6 weeks Weight Bearing Status: Full weight bearing Additional Activity Instructions:: Nothing in the vagina for 4-6 weeks. You may return to work/school in 6 weeks. Call your doctor if your incision/area has: Continuous Slow Oozing, Sudden Increased Bleeding, Increased Pain/ Swelling, Increased Redness, Foul Smelling Discharge Additional Instructions: If you experience any of the following, contact your healthcare provider. * Bleeding that soaks a pad every hour for 2 hours * Fever 100.4 or higher * Unrelieved incision or abdominal pain * Swelling, redness, discharge or bleeding from your incision or epis iotomy site * Your incision begins to separate * Problems urinating (including inability to urinate or burning while urinating). * Visual changes * Severe headache * Flu-like symptoms * Pain or redness in one of both of your breasts * Pain, warmth, tenderness or swelling in your legs, especially the calf area * Frequent nausea and vomiting * Symptoms of depression or anxiety If you experience any of the following, call 911 or go to the nearest Emergency Room. * Chest pain * Problems breathing * Seizure activity * Partial or complete paralysis of a body part, slurred speech, weakness or drooping of the face, or a sudden inability to walk or hold your balance Allergies/Adverse Reactions: Allergies latex Allergy (Verified 08/14/19 06:58) Itching tree nut Allergy (Verified 08/14/19 06:58) Unknown Medications to take at Discharge Vits [Prenatabs FA ] 1 tab PO DAILY 04/01/16 Cholecalciferol (Vitamin D3) [Vitamin D3] 5,000 unit PO DAILY 10/10/18 calcium carbonate 200 mg calcium (500 mg) chewable tablet 200 mg PO BID 11/13/18 cetirizine 10 mg capsule 10 mg PO DAILY 11/13/18 diphenhydramine HCl 25 mg capsule 25 mg PO QHS 11/13/18 Cetirizine HCl [Zyrtec] 10 mg PO 08/14/19 Naproxen [Naprosyn] 500 mg PO Q8H PRN PRN #30 tab 08/15/19 The following prescriptions were given: Naproxen [Naprosyn] 500 mg PO Q8H PRN PRN #30 tab PRN Reason: Pain Score 1-05/14 Transmission Status: Pending to [facility] Please Follow Up With: Aviva Barreto CNM When: Call to make an appointment with your doctor in 2 weeks and 6 weeks. If you had elevated Blood Pressure or 4th degree laceration you will need to be seen in 2 weeks. Primary Care Physician: Benny Diego DO [Primary Care Provider] - Test Results: Test results from this visit will be discussed in further detail at your follow- up appointment, if applicable.
[2019-08-15] MEDS: Naproxen 250 MG Tablet 500 MG PO (09:09)
[2019-08-15 13:12] VITALS: BP 110/75; PULSE 90; RESP 16; TEMP 37.2
[2019-08-15] MEDS: Senna/Docusate Sodium 1 Tablet PO (13:23)
== END 2019-08-15 13:40 | disposition home or self-care (01) | DRG 807 ==
LOC: WPOUT 06:45 → WP 06:45
PROVIDERS: Obstetrics & Gynecology; Admitting Provider Advanced Practice Midwife; PCP Student in an Organized Health Care Education/Training Program; Referring Provider Advanced Practice Midwife; Visit Provider Advanced Practice Midwife
DX: O34.219 Maternal care for unspecified type scar from previous cesarean delivery (principal); Z37.0 Single live birth; O70.1 Second degree perineal laceration during delivery; Z3A.39 39 weeks gestation of pregnancy
CPT/HCPCS: 59025; 59050; 85025; 86850; 86900; 86901; 87635; 99218; G2023; J7120; A4216; G0378; J2405; U0003

== ENCOUNTER → 2021-11-05 | Outpatient (CLI) | payer BC, SELFPAY | END | disposition home or self-care (01) | PROVIDERS: PCP Student in an Organized Health Care Education/Training Program; Visit Provider Obstetrics & Gynecology | DX: R10.2 Pelvic and perineal pain (principal) | CPT/HCPCS: 87070; 87086; 87088; 87205 ==

== ENCOUNTER → 2021-11-23 | Outpatient (CLI) | payer BC, SELFPAY ==
--- NOTE | 2021-11-23 16:25 | US_ITS ---
INDICATION: left lower quadrant/pelvic pain EXAMINATION: Ultrasound US Transvaginal Non-OB TECHNIQUE: Transvaginal (for optimal evaluation of the adnexa) pelvic ultrasound was performed. Grayscale, spectral waveform, and color flow Doppler evaluation of the adnexa. COMPARISON: None. FINDINGS: UTERUS: The uterus is midline and anteverted, it demonstrates hyperechoic echogenicity and unremarkable vascularity, no evidence of myometrial masses is seen. The endometrial stripe measures 1.2 cm in AP diameter which is within normal limits. RIGHT OVARY: The right ovary measures 3.2 x 2.2 x 1.9 cm.. Non-enlarged, normal echogenicity. There is normal arterial inflow and venous outflow present in the right ovary. LEFT OVARY: The left ovary measures 3.7 x 3.0 x 2.8 cm. An isoechoic area is visualized in the left ovary suggestive of a solid lesion measuring 1.7 x 1.6 x 1.4 cm.. Non-enlarged, normal echogenicity. There is normal arterial inflow and venous outflow present in the left ovary. FREE FLUID: Small amount of free fluid is visualized in the cul-de-sac. US/Transvaginal Non- IMPRESSION: Isoechoic lesion/solid lesion visualized in the left ovary measuring 1.7 cm. Electronically Signed: Nicholas Lopez MD at 8:57 EDT ,
[2021-11-23 17:46] LABS: Absolute Neutrophil Count 4.2 X10^3/uL (2.0-7.7); Basophil# 0.04 X10^3/uL; Basophil% 0.6 % (0-1); Eosinophil# 0.07 X10^3/uL; Hematocrit 37.3 % (37-47); Hemoglobin 12.1 g/dL (12.0-15.0); Lymphocyte % 27.5 % (19-41); Mean Corp Hgb Conc 32.4 g/dL (32-36); Mean Corpuscular Hgb 29.9 pg (27.0-32.0); Mean Corpuscular Volume 92.1 fL (81-99); Mean Platelet Vol. 9.5 fl (6.2-12.0); Monocyte# 0.68 X10^3/uL; Monocyte% 9.9 % (0-10); NRBC Flagged by Analyzer 0 % (0-5); Neutrophil # 4.19 X10^3/uL (2.7-7.7); Neutrophil % 60.7 % (47-70); Platelet Count 263 K/mm3 (150-450); RBC Distribution Width CV 13.4 % (11.6-14.6); RBC Distribution Width SD 45.8 fl (35.1-43.9); Red Blood Count 4.05 M/mm3 (4.2-5.4); White Blood Count 6.9 K/mm3 (4.4-11.0)
== END | disposition home or self-care (01) ==
PROVIDERS: PCP Student in an Organized Health Care Education/Training Program; Referring Provider Obstetrics & Gynecology; Visit Provider Obstetrics & Gynecology
DX: R10.2 Pelvic and perineal pain (principal)
CPT/HCPCS: 36415; 76830; 85025

== ENCOUNTER → 2022-01-08 | Outpatient (CLI) | payer BC, SELFPAY ==
--- NOTE | 2022-01-08 15:58 | US_ITS ---
INDICATION: PELVIC RIKY EXAMINATION: US Pelvis Non OB Complete With Transvaginal Imaging TECHNIQUE: Transabdominal and transvaginal pelvic ultrasound was performed. Grayscale, spectral waveform, and color flow Doppler evaluation of the adnexa. COMPARISON: None. FINDINGS: UTERUS: Anteverted. The uterus measures 9.6 x 5 x 2.8 cm. There is no uterine mass. The endometrial stripe is heterogeneous and measures 11 mm in AP diameter which is within normal limits. RIGHT OVARY: Measures 3.8 x 2.2 x 1.8 cm. Non-enlarged, normal echogenicity. There is normal arterial inflow and venous outflow present in the right ovary. There are greater than 20 follicles seen in the right ovary. LEFT OVARY: Measures 3.4 x 2.8 x 3 cm a. Non-enlarged, normal echogenicity. There is normal arterial inflow and venous outflow present in the left ovary. FREE FLUID: Trace. US/Pelvic (Non ) IMPRESSION: Polycystic ovarian syndrome. Electronically Signed: Basilio Bateman MD at 20:06 EDT ,
== END | disposition home or self-care (01) ==
PROVIDERS: PCP Student in an Organized Health Care Education/Training Program; Referring Provider Obstetrics & Gynecology; Visit Provider Obstetrics & Gynecology
DX: R10.2 Pelvic and perineal pain (principal)
CPT/HCPCS: 76830; 76856

== ENCOUNTER → 2022-02-02 | Outpatient (CLI) | payer BC, SELFPAY ==
[2022-02-10 07:08] LABS: HPV Genotype 16, Aptima Negative (Negative)
[2022-02-10 09:27] LABS: HPV APTIMA, High Risk Positive (Negative); HPV Genotype 18,45 Aptima Negative (Negative)
== END | disposition home or self-care (01) ==
LOC: LABSPEC 16:39
PROVIDERS: PCP Student in an Organized Health Care Education/Training Program; Visit Provider Obstetrics & Gynecology
DX: Z12.4 Encounter for screening for malignant neoplasm of cervix (principal)
CPT/HCPCS: 87624; 88175; G0145

== ENCOUNTER → 2022-02-11 | Outpatient (CLI) | payer BC, SELFPAY ==
--- NOTE | 2022-02-11 | CER_PTH ---
PATIENT: CHEYANNE GARCIA LOC: [facility] U#:[id number] AGE/SX: 31/F ROOM: RE02/11/[address]: Dr. Kristy Haynes DO : 1990 BED: DIS: 02/11/2022 SPEC #: [id number] RECD: 02/11/22 13:49 STATUS: JULIO HEATHER #: [id number] BEV: 02/11/22 00:[address]: Kristy Haynes DEPT: SURGICAL PATHOLOGY RECD BY: Memo Peñaloza ENTERED: 02/11/22 13:49 SP TYPE: CERV OTHR DR: Dr. Benny Diego, Tissues: A - Uterine cervix, NOS B - Endocervical Procedures: Surgery Specimen Level IV HEADER OPERATION: Colposcopy PRE-OP DIAGNOSIS: HPV positive TISSUE SUBMITTED: A ? Endocervical curettings, B ? Cervix 2 o?clock MICROSCOPIC DIAGNOSIS A. Endocervix, curettings: Scant strips of benign superficial endocervix. B. Cervix at 2 o?clock, biopsy: Mild squamous dysplasia, TRACY I (LSIL). Changes consistent with HPV cytopathic effect. See comment. AM:erika 02/12/2022 COMMENT B. Results from immunohistochemistry ([id number]) for surrogate HPV marker (p16) will be reported separately. MICROSCOPIC DESCRIPTION Slides are reviewed. GROSS DESCRIPTION A - Received in fixative is one container labeled with the patient's name and designated ECC. The specimen consists of a scant amount of soft tissue. The specimen is totally submitted for cell block preparation. B - Received in fixative is one container labeled with the patient's name and designated 2 o'clock. The specimen consists of multiple irregular fragments of light vuong soft tissue that in aggregate measure 0.5 x 0.3 x 0.1 cm. The specimen is totally submitted in one cassette. / SJ:erika 02/11/2022 TC:3 CPT: 64377 x2
--- NOTE | 2022-02-11 | IMM_PTH ---
PATIENT: CHEYANNE GARCIA LOC: [facility] U#:[id number] AGE/SX: 31/F ROOM: RE02/11/[address]: Dr. Kristy Haynes DO : 1990 BED: DIS: 02/11/2022 SPEC #: [id number] RECD: 02/12/22 12:31 STATUS: JULIO HEATHER #: [id number] BEV: 02/11/22 00:[address]: Kristy Haynes DEPT: IMMUNOHISTOCHEMISTRY RECD BY: Carolina Smith ENTERED: 02/12/22 12:32 SP TYPE: IMMUNO OTHR DR: Dr. Benny Diego DO Tissues: B - Uterine cervix, NOS Procedures: p16 (initial) KI-67 (add) PHYSICIAN & INSTITUTION [place] [id number] SPECIMEN INFORMATION: Tissue Source: B ? Cervix at 2 o?clock Clinical Info: HPV positive Specimen Number: [id number] CPT code: 72398, 61049 METHODOLOGY: Deparaffinized sections of prefer/formalin-fixed tissue or PAP/DQ stained slides are incubated with monoclonal/polyclonal antibodies/oligonucleotide probes. Localization is made via biotin free immunoperoxidase method. Appropriate controls are performed and reacted as expected. Results on target cell population are indicated in the following table: RESULTS: ANTIBODY / CLONE RESULT Block B P16 (E6H4) positive, focal patchy Ki-67 (30-9) positive, low These tests were developed and their performance characteristics determined by [facility]. They may not have been cleared or approved by the U.S. Food and Drug Administration. The FDA has determined that such clearance or approval is not necessary. The above immunohistochemical/dualISH markers are ordered and reviewed by the Pathologist. INTERPRETATION: B. Cervix at 2 o?clock, biopsy: Consistent with focal HPV change. AM:erika 02/15/2022
== END | disposition home or self-care (01) ==
LOC: LABSPEC 13:23
PROVIDERS: PCP Student in an Organized Health Care Education/Training Program; Visit Provider Obstetrics & Gynecology
DX: R87.810 Cervical high risk human papillomavirus (HPV) DNA test positive (principal)
CPT/HCPCS: 88305; 88341; 88342

== ENCOUNTER → 2022-11-19 | Outpatient (CLI) | payer BC, SELFPAY ==
--- NOTE | 2022-11-19 12:33 | US_ITS ---
STUDY: THYROID ULTRASOUND REASON FOR EXAM: Female, 32 years old. History of thyroid nodule. TECHNIQUE: Ultrasound evaluation of the thyroid was performed with real-time and static tang-scale imaging. COMPARISON: None. FINDINGS: RIGHT LOBE: The right lobe of the thyroid gland measures 4.6 cm x 1.2 cm x 1.5 cm. There is a homogeneous echotexture. There are no demonstrated solid, cystic or complex lesions. LEFT LOBE: The left lobe of the thyroid gland measures 4.6 cm x 1.2 cm x 1.5 cm. There is a homogeneous echotexture. There is a 4 mm x 3 mm x 2 mm cyst in the upper pole of the left lobe of the thyroid. ISTHMUS: The isthmus measures 1.9 mm. The regional lymph nodes are normal. US/Thyroid IMPRESSION: 4 mm x 3 mm x 2 mm cyst is seen in the upper pole of the left lobe of the thyroid. Electronically Signed: Alex Hernandez MD at 14:13 EDT ,
== END | disposition home or self-care (01) ==
PROVIDERS: PCP Student in an Organized Health Care Education/Training Program; Referring Provider Student in an Organized Health Care Education/Training Program; Visit Provider Student in an Organized Health Care Education/Training Program
DX: E04.2 Nontoxic multinodular goiter (principal)
CPT/HCPCS: 76536

== ENCOUNTER → 2023-01-12 | Outpatient (CLI) | payer BC, SELFPAY ==
[2023-01-18 21:07] LABS: HPV APTIMA, High Risk Positive (Negative); HPV Genotype 16, Aptima Negative (Negative); HPV Genotype 18,45 Aptima Negative (Negative)
== END | disposition home or self-care (01) ==
PROVIDERS: PCP Student in an Organized Health Care Education/Training Program; Referring Provider Obstetrics & Gynecology; Visit Provider Obstetrics & Gynecology
DX: Z12.4 Encounter for screening for malignant neoplasm of cervix (principal)
CPT/HCPCS: 87624; 88175; G0145

== ENCOUNTER → 2023-03-18 | Outpatient (CLI) | payer BC, SELFPAY ==
--- NOTE | 2023-03-18 | IMM_PTH ---
PATHOLOGY RESULTS PATIENT: CHEYANNE GARCIA LOC: [facility] U#:[id number] AGE/SX: 32/F ROOM: RE03/18/[address]: Dr. Kristy Haynes DO : 1990 BED: DIS: 03/18/2023 SPEC #: [id number] RECD: 03/22/23 12:24 STATUS: JULIO HEATHER #: [id number] BEV: 03/18/23 00:[address]: Kristy Haynes DEPT: IMMUNOHISTOCHEMISTRY RECD BY: Carolina Smith ENTERED: 03/22/23 12:25 SP TYPE: IMMUNO OTHR DR: Dr. Benny Diego DO Tissues: Uterine cervix, NOS Procedures: p16 (initial) KI-67 (add) PHYSICIAN & INSTITUTION [place] [id number] SPECIMEN INFORMATION: Tissue Source: B - Cervix at 12 o'clock Clinical Info: HPV positive Specimen Number: [id number] CPT code: 10264, 27486 METHODOLOGY: Deparaffinized sections of prefer/formalin-fixed tissue or PAP/DQ stained slides are incubated with monoclonal/polyclonal antibodies/oligonucleotide probes. Localization is made via biotin free immunoperoxidase method. Appropriate controls are performed and reacted as expected. Results on target cell population are indicated in the following table: RESULTS: ANTIBODY / CLONE RESULT Block B P16 (E6H4) negative Ki-67 (30-9) positive These tests were developed and their performance characteristics determined by [facility]. They may not have been cleared or approved by the U.S. Food and Drug Administration. The FDA has determined that such clearance or approval is not necessary. The above immunohistochemical/dualISH markers are ordered and reviewed by the Pathologist. INTERPRETATION: B. Cervix at 12 o'clock, biopsy: No evidence of dysplasia. AM:erika 03/23/2023
--- NOTE | 2023-03-18 | EMB_PTH ---
PATHOLOGY RESULTS PATIENT: CHEYANNE GARCIA [facility] U#:[id number] AGE/SX: 32/F ROOM: RE03/18/[address]: Dr. Kristy Haynes DO : 1990 BED: DIS: 03/18/2023 SPEC #: [id number] RECD: 03/21/23 07:32 STATUS: JULIO HEATHER #: [id number] BEV: 03/18/23 00:[address]: Kristy Haynes DEPT: SURGICAL PATHOLOGY RECD BY: Hanny Kimball ENTERED: 03/21/23 07:33 SP TYPE: ENDOM BX/C JANETT DR: Dr. Benny Diego DO Tissues: Endometrium, NOS Uterine cervix, NOS Procedures: Surgery Specimen Level IV HEADER OPERATION: Colposcopy PRE-OP DIAGNOSIS: HPV positive TISSUE SUBMITTED: A - Endocervical curettings, B - Cervix 12 o'clock MICROSCOPIC DIAGNOSIS A. Endocervix, curettings (cell block): Rare benign glandular epithelial cells. Acute inflammatory cells. B. Cervix at 12 o'clock, biopsy: Mild chronic inflammation. No evidence of dysplasia. See comment. JOSE FRANCISCO:erika 03/22/2023 COMMENT B. Immunohistochemistry ([id number]) for surrogate HPV marker (p16) supports the above diagnosis. Case has been reviewed in consultation with Dr. Villanueva who concurs with the above diagnosis. IDC:JOSE FRANCISCO MICROSCOPIC DESCRIPTION Slides are reviewed. GROSS DESCRIPTION A - Received in fixative is one container labeled with the patient's name and designated endocervical curettings. The specimen consists of a scant amount of soft tissue. The specimen is totally submitted for cell block preparation. B - Received in fixative is one container labeled with the patient's name and designated 12 o'clock. The specimen consists of one irregular fragment of light vuong soft tissue that measures 0.4 x 0.3 x 0.1 cm. The specimen is totally submitted in one cassette. / JOSE FRANCISCO:erika 03/21/2023 TC:3 CPT: 72070 x2
--- OUTSIDE RECORDS SUMMARY | 2023-03-18 17:11 | XMS RPT_ITS | CCD ---
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 Benny Glez Primary Care Yuva ilazeb Wolff, Dr. Kadeem Michaels Referring Unavailable Max Wolff, Dr. Kadeem Michaels Attending Unavailable Johnathon, Dr. Benny Dobbs Primary Care Yuva ilazeb Wolff, Dr. Kadeem Michaels Attending Unavailable Dr. Benny Glez Primary Care Yuva ilazeb Lorenzo, Dr. Maribel Healy Referring Unav ailable Bj, Dr. Maribel Healy Attending Unav ailable Johnathon, Dr. Benny Dobbs Attending Yuva ilazeb Glez, Dr. Benny Dobbs Primary Care Yuva BENNY Foss Primary Care Unavailable BENNY GLEZ Attending Unavailable BRAIN CRISTINA Referring Unavailable BENNY GLEZ Primary Care Unavailable BENNY GLEZ Attending Unavailable BENNY GLEZ Primary Care Unavailable Allergies Allergy Classification Reported Allergen(s) Allergy Type Date of Onset Reaction(s) Facility (14 sources) natural latex rubber Allergy to substance (finding) zz DO NOT USE - [facility] Only (20 sources) Bee pollen; Translations: [BEE POLLEN] Drug Allergy 3 Itching, Swelling [facility] (20 sources) Seasonal allergy; Translations: [SEASONAL ALLERGIES] Allergy to substance Itching [facility] (20 sources) tree nut, unspecified; Translations: [TREE NUTS] Drug Allergy [address] [facility] (10 sources) tree nut, unspecified Allergy to substance (finding) [facility] [address] Work Phone: Medications Completed/Discontinued Medications Medication Drug Class(es) Dates Sig (Normalized) Sig (Original) benzonatate 100 mg oral capsule (20 sources) Non-narcotic Antitussive Start: 02-25-2021 benzonatate (TESSALON PERLE) 100 mg capsule Take 1-2 capsules tid prn, no more than 6 in 24 hours. 30 capsule 0 02/25/2021 Active Problems Active Problems Problem Classification Problem Date Documented Da te Episodic/Chronic Anxiety disorders (11 sources) Anxiety; Translations: [Other specified anxiety disorders] Onset: 09-25-2022 Chronic Blindness and vision defects (1 source) Unspecified visual loss; Translations: [Unspecified visual loss] Onset: 06-11-2021 Chronic Genitourinary symptoms and ill-defined conditions (12 sources) Dysuria; Translations: [Dysuria] Episodic Headache; including migraine (13 sources) Headache; Translations: [Headache] Episodic Immunizations and screening for infectious disease (10 sources) Patient encounter status; Translations: [Screening examination for venereal disease] Episodic Lymphadenitis (16 sources) Axillary lymphadenopathy; Translations: [Enlargement of lymph nodes] Episodic Menstrual disorders (1 source) Menorrhagia; Translations: [Excessive and frequent menstruation with regular cycle] Chronic Miscellaneous mental health disorders (1 source) Dyspareunia not due to a substance or known physiological condition; Translations: [Dyspareunia not due to a substance or known physiol cond] Onset: 09-28-2021 Chronic Mycoses (8 sources) Candidiasis of vagina; Translations: [Candidiasis of vulva and vagina] Episodic Nonmalignant breast conditions (11 sources) Mastodynia; Translations: [Breast pain, left] Episodic Other bone disease and musculoskeletal deformities (1 source) Somatic dysfunction of head region; Translations: [Segmental and somatic dysfunction of head region] 02-02-2023 Episodic Other bone disease and musculoskeletal deformities (1 source) Cervical somatic dysfunction; Translations: [Segmental and somatic dysfunction of cervical region] 02-02-2023 Episodic Other bone disease and musculoskeletal deformities (1 source) Somatic dysfunction of thoracic region; Translations: [Segmental and somatic dysfunction of thoracic region] 02-02-2023 Episodic Other bone disease and musculoskeletal deformities (1 source) Somatic dysfunction of pelvic region; Translations: [Segmental and somatic dysfunction of pelvic region] 02-02-2023 Episodic Other bone disease and musculoskeletal deformities (1 source) Somatic dysfunction of rib; Translations: [Segmental and somatic dysfunction of rib cage] 02-02-2023 Episodic Other complications of ; puerperium affecting management of mother (14 sources) ultrasound scan abnormal; Translations: [Other known or suspected abnormality, not elsewhere classified, affecting management of mother, antepartum condition or complication] Episodic Other complications of ; puerperium affecting management of mother (10 sources) Deliveries by ; Translations: [ delivery, without mention of indication, unspecified as to episode of care or not applicable] Episodic Past or Other Problems Problem Classification Problem Date Documented Da te Episodic/Chronic Abdominal pain (12 sources) Pain in female pelvis; Translations: [Unspecified symptom associated with female genital organs] Onset: 09-28-2021 Episodic Allergic reactions (20 sources) Allergy to tree nut; Translations: [Allergy to other foods] Onset: 06-12-2018 06-12-2018 Episodic Blindness and vision defects (5 sources) Blurring of visual image; Translations: [Other visual disturbances] Onset: 06-11-2021 Episodic Malaise and fatigue (7 sources) Fatigue; Translations: [Other fatigue] Onset: 09-25-2022 Episodic Nonspecific chest pain (6 sources) Anterior chest wall pain; Translations: [Other chest pain] Onset: 10-28-2021 Episodic Other connective tissue disease (20 sources) Diastasis recti; Translations: [Separation of muscle (nontraumatic), other site] Onset: 06-27-2018 06-27-2018 Episodic Other female genital disorders (20 sources) History of abnormal cervical Papanicolaou smear ; Translations: [Personal history of other diseases of the female genital tract] Onset: 07-31-2015 03-02-2021 Episodic Other nervous system disorders (4 sources) Paresthesia of skin; Translations: [Paresthesia of skin] Onset: 06-11-2021 Episodic Other skin disorders (20 sources) Localized swelling, mass and lump, left upper limb; Translations: [Localized superficial swelling, mass, or lump] Onset: 03-14-2019 05-15-2019 Episodic Residual codes; unclassified (20 sources) FH: Congenital heart disease; Translations: [Family history of other congenital malformations, deformations and chromosomal abnormalities] Onset: 12-25-2018 05-08-2019 Episodic Residual codes; unclassified (20 sources) Family history of hereditary disease; Translations: [Family history of other specified conditions] Onset: 12-25-2018 12-25-2018 Episodic Unclassified (10 sources) Finding of menstrual bleeding; Translations: [Menstruation] Results Test Name Value Interpretation Reference Range Facil ity Vital Signs Date Time Vital Sign Value Performing Clinician Facility 10-06-2021 14:20-0400 Body height 157.48 cm Benny Adamson Glez Work Phone: [facility] [address] Work Phone: 10-06-2021 14:20-0400 Body mass index (BMI) [Ratio] 28.9 kg/m2 Benny Adamson Glez Work Phone: [facility] [address] Work Phone: 10-06-2021 14:20-0400 Body surface area Derived from formula 1.73 m2 Benny Adamson Glez Work Phone: [facility] [address] Work Phone: 10-06-2021 14:20-0400 Body weight 71.67 kg Benny Adamson Glez Work Phone: [facility] [address] Work Phone: 10-06-2021 14:20-0400 Diastolic blood pressure 86 mm[Hg] Benny Adamson Glez Work Phone: [facility] [address] Work Phone: 10-06-2021 14:20-0400 Heart rate 91 /min Benny L Glez Work Phone: [facility] [address] Work Phone: 10-06-2021 14:20-0400 Respiratory rate 18 /min Benny L Glez Work Phone: [facility] [address] Work Phone: 10-06-2021 14:20-0400 SaO2% (BldA) [Mass fraction] 99 % Benny L Glez Work Phone: [facility] [address] Work Phone: 10-06-2021 14:20-0400 Systolic blood pressure 123 mm[Hg] Benny L Glez Work Phone: [facility] [address] Work Phone: 10-05-2021 13:14-0400 Body height 157.48 cm Benny L Glez Work Phone: [facility] [address] Work Phone: 10-05-2021 13:14-0400 Body mass index (BMI) [Ratio] 28.87 kg/m2 Benny L Glez Work Phone: [facility] [address] Work Phone: 10-05-2021 13:14-0400 Body surface area Derived from formula 1.73 m2 Benny L Glez Work Phone: [facility] [address] Work Phone: 10-05-2021 13:14-0400 Body weight 71.6 kg Benny L Glez Work Phone: [facility] [address] Work Phone: 10-05-2021 13:14-0400 Diastolic blood pressure 76 mm[Hg] Benny L Glez Work Phone: [address] Work Phone: 10-05-2021 13:14-0400 Systolic blood pressure 130 mm[Hg] Benny Juan Diego Glez Work Phone: [address] Work Phone: 09-21-2021 13:44-0400 Body height 157.48 cm Benny L Glez Work Phone: [address] Work Phone: 09-21-2021 13:44-0400 Body mass index (BMI) [Ratio] 28.83 kg/m2 Benny L Glez Work Phone: [address] Work Phone: 09-21-2021 13:44-0400 Body surface area Derived from formula 1.73 m2 Benny L Glez Work Phone: [address] Work Phone: 09-21-2021 13:44-0400 Body weight 71.5 kg Benny L Glez Work Phone: [address] Work Phone: 09-21-2021 13:44-0400 Diastolic blood pressure 84 mm[Hg] Benny L Glez Work Phone: [address] Work Phone: 09-21-2021 13:44-0400 Systolic blood pressure 132 mm[Hg] Benny L Glez Work Phone: [address] Work Phone: 06-22-2021 08:11-0400 Body height 157.48 cm Benny L Glez Work Phone: [facility] [address] Work Phone: 06-22-2021 08:11-0400 Body mass index (BMI) [Ratio] 27.25 kg/m2 Benny L Glez Work Phone: [facility]wxsbc[facility] [address] Work Phone: 06-22-2021 08:11-0400 Body surface area Derived from formula 1.69 m2 Benny Adamson Glez Work Phone: [facility]fl[facility]juq[facility] Work Phone: 06-22-2021 08:11-0400 Body temperature 98.4 [degF] Benny Adamson Glez Work Phone: [facility] [address] Work Phone: 06-22-2021 08:11-0400 Body weight 67.59 kg Benny Adamson Glez Work Phone: FZ[facility]kvldhcyr[facility] Work Phone: 06-22-2021 08:11-0400 Diastolic blood pressure 86 mm[Hg] Benny Adamson Glez Work Phone: HX[facility]Opsemgmju[facility] [address] Work Phone: 06-22-2021 08:11-0400 Heart rate 92 /min Benny Adamson Glez Work Phone: [facility]yswqrcv[facility] Work Phone: 06-22-2021 08:11-0400 Respiratory rate 18 /min Benny Adamson Glez Work Phone: [facility]Zcofmdttg[facility] Work Phone: 06-22-2021 08:11-0400 SaO2% (BldA) [Mass fraction] 97 % Benny Adamson Glez Work Phone: [facility]Qvhywbbmu[facility] Work Phone: 06-22-2021 08:11-0400 Systolic blood pressure 136 mm[Hg] Benny L Glez Work Phone: CJ[facility] [address] Work Phone: 06-10-2021 16:42-0400 Body temperature 98.01 [degF] Benny Glez DO Work Phone: [facility] 06-10-2021 16:42-0400 Body weight 69.85 kg Benny Glez DO Work Phone: [facility] 06-10-2021 16:42-0400 Diastolic blood pressure 70 mm[Hg] Benny Glez DO Work Phone: [facility] 06-10-2021 16:42-0400 Heart rate 80 /min Benny Glez DO Work Phone: [facility] 06-10-2021 16:42-0400 Respiratory rate 16 /min Benny Glez DO Work Phone: [facility] 06-10-2021 16:42-0400 Systolic blood pressure 124 mm[Hg] Benny Glez DO Work Phone: [facility] 03-22-2019 12:41-0500 BMI (Body Mass Index) 25.15 kg/m2 Ania Mcfarlane [facility] Work Phone: 03-22-2019 12:41-0500 Body weight 64.41 kg Ania Mcfarlane [facility] Work Phone: 03-22-2019 12:41-0500 BP Diastolic 60 mm[Hg] Ania Mcfarlane [facility] Work Phone: 03-22-2019 12:41-0500 BP Systolic 138 mm[Hg] Ania Mcfarlane [facility] Work Phone: 03-22-2019 12:41-0500 BSA (Body Surface Area) 1.67 m2 Ania Mcfarlane [facility] Work Phone: 03-22-2019 12:41-0500 Height 160.02 cm Ania Mcfarlane [facility] Work Phone: 03-22-2019 12:41-0500 Pulse (Heart Rate) 80 /min Ania Mcfarlane [facility] Work Phone: 03-22-2019 12:41-0500 Respiratory Rate 18 /min Ania Denys [facility] Work Phone: 03-22-2019 12:41-0500 4 1 Ania [facility]farlane [facility] Work Phone: Encounters Encounter Date Encounter Type Care Provider Facility Start: 01-21-2023 End: 01-21-2023 ambulatory BENNY GLEZ Facility:[facility] Start: 01-21-2023 End: 01-21-2023 Patient encounter procedure Benny Glez DO Work Phone: [facility] Procedures Date Procedure Procedure Detail Performing Clinician Start: 10-13-2021 Echocardiography Benny Glez Work Phone: Start: 05-08-2021 Adult depression scr eening assessment Benny Glez DO Work Phone: Start: 03-14-2019 Mamm - Ultrasound Gu ided Lymph Node Biopsy Ania Mcfarlane Augmentation mammoplasty [facility] Denys section Benny lange Work Phone: Plan of Treatment Date Care Activity Detail Author Start: 06-11-[address] [facility] Start: 01-13-2028 HPV Testing HPV Testing [facility] Start: 01-13-2028 Pap Testing Pap Testing [facility] Start: 02-02-2027 HPV TESTING HPV TESTING [facility] Start: 02-02-2027 PAP TESTING PAP TESTING [facility] Start: 11-28-2025 HPV TESTING HPV TESTING [facility] Start: 11-28-2025 PAP TESTING PAP TESTING [facility] Start: 09-26-2023 Covid-19 Vaccine (2 - Booster for Chidi series) Covid-19 Vaccine (2 - Booster for Chidi series) [facility] Immunizations Immunization Date Immunization Notes Care Provider Zach venegas 12-14-2022 influenza virus vaccine, unspecified formulation Benny Glez DO Work Phone: [facility] 12-29-2021 influenza virus vaccine, unspecified formulation Sera Shin APRN.CNP Work Phone: [facility] 01-26-2020 influenza, injectabl e, quadrivalent, contains preservative Benny Glez DO Work Phone: [facility] 06-12-2019 tetanus toxoid, redu suzy diphtheria toxoid, and acellular pertussis vaccine, adsorbed Benny Glez DO Work Phone: [facility] Work Phone: 03-21-2019 influenza, injectabl e, quadrivalent, contains preservative Benny Glez DO Work Phone: [facility] 12-28-2017 influenza virus vaccine, unspecified formulation Benny Glez DO Work Phone: [facility] 12-28-2017 influenza, seasonal, injectable Benny Glez DO Work Phone: [facility] 09-09-2017 tetanus toxoid, redu suzy diphtheria toxoid, and acellular pertussis vaccine, adsorbed Benny Glez DO Work Phone: [facility] 12-10-2016 influenza virus vaccine, unspecified formulation Benny Glez DO Work Phone: [facility] 01-07-2016 tetanus toxoid, redu suzy diphtheria toxoid, and acellular pertussis vaccine, adsorbed Benny Glez DO Work Phone: [facility] Work Phone: 12-09-2015 influenza virus vaccine, unspecified formulation Benny Glez DO Work Phone: [facility] Payers Date Payer Category Payer Unknown [id number] 2016 Unknown 2016 Unknown [employer] [id number] 2016-Present [address] [place] [address] PPO [id number] 2016 Unknown [id number] 1989 Unknown [id number] 1989 Unknown [id number] 1989 Unknown [id number] 9 1989 Unknown [id number] Social History Date Type Detail Facility Assertion Unknown if ever smoked [facility] Work Phone: Start: 01-26-2020 End: 09-25-2022 Non-smoker Non-smoker [facility] Start: 09-25-2022 Tobacco smoking stat [facility] Never smoked tobacco [facility] Work Phone: Start: 06-10-2021 End: 09-25-2022 Alcohol intake Ex-drinker (finding) [facility] Start: 09-11-2019 History SDOH Alcohol Frequency 3 [facility] Start: 09-11-2019 History SDOH Alcohol Std Drinks 1 [facility] Start: 09-11-2019 History SDOH Social Connections Phone 5 [facility] Start: 01-26-2020 End: 02-11-2020 History SDOH Social Connections Get Together 2 [facility] Start: 01-26-2020 History SDOH Physica l Activity DPW 0 [facility] Start: 09-11-[address] [facility] Start: 1990 Sex Assigned At Not on file [facility] Start: 05-31-2021 End: 06-10-2021 Exposure to SARS-CoV-2 (event) Not sure [facility] Work Phone: Start: 09-25-2022 Tobacco use and exposure Smoke less tobacco non-user [facility] Start: 01-26-2020 End: 09-25-2022 Social connection and isolation panel [facility] Frequency of Communi cation with Friends and Family Not on file [facility] How often to you hav e a drink containing alcohol? 2-[address] [facility] How many standard dr inks containing alcohol do you have on a typical day? [address] [facility] How often do you hav e 6 or more drinks on 1 occasion? Never [facility] Do you feel stress - tense, restless, nervous, or anxious, or unable to sleep at night because your mind is troubled all the time - these days [OSQ] Only a little [facility] (I/We) worried wheth er (my/our) food would run out before (I/we) got money to buy more. Never true [facility] In the past 12 month s, was there a time when you were not able to pay the mortgage or rent on time? No [facility] Functional Status Date Assessment Result Facility NEGATED: Highlighted row Functional performance Functional status health issues are not documented Disease [facility] Work Phone: Mental Status Date Assessment Result Facility NEGATED: Highlighted row Cognitive function [Interpretation] Cognitive status health issues are not documented Disease [facility] Work Phone: Clinical Notes 12-25-2018 to 01-26-2023 Benny Glez DO - 01/26/2023 6:32 PM ESTTelephone Encounter - Mar Armenta - 12/15/2022 11:46 AM EDTTelephone Encounter - Qian Pete APRN.CNP - 12/15/2022 11:38 AM EDT Note Date & Type Note Facility 01-26-2023 Note HNO ID: [id number] Author: Benny Glez DO Service: ? Author Type: Physician Type: Progress Notes Filed: 02/02/2023 7:57 AM Note Text: CC: Rosalinda Garcia is a 32 year old female who presents to the office for OMT HPI: Recurrent neck and upper back and low back discomfort and muscle tension symptoms, no paresthesias or weakness. No injuries. No fevers. Has benefited from OMT, requesting this today PAST MEDICAL HISTORY Diagnosis Date Abnormal Pap smear of cervix 2011 Pt unsure of treatment , believes it was cryo Anemia Atypical squamous cells cannot exclude high grade squamous intraepithelial lesion on cytologic smear of cervix (ASC-H) 11/2020 Axillary accessory breast tissue 10/08/2019 Complication of anesthesia NANDV Multiple thyroid nodules 09/25/2022 Pap smear abnormality of cervix/human papillomavirus (HPV) positive 11/2020 Seasonal allergies PAST SURGICAL HISTORY Procedure Laterality Date ADENOIDECTOMY PRIMARY Adenoidectomy BREAST AUGMENTATION W/PROSTHETIC IMPLANT DELIVERY ONLY N/A 04/01/2016 DELIVERY ONLY 10/07/2017 C/S transverse CRYOCAUTERY OF CERVIX PAST SURGICAL HISTORY OF 2011 lymph node under chin removed TONSILLECTOMY PRIMARY/SECONDARY Tonsillectomy Current Outpatient Medications Medication Sig FLUoxetine (PROZAC) 10 mg capsule Take 1 capsule by mouth once daily. benzonatate (TESSALON PERLE) 100 mg capsule Take 1-2 capsules tid prn, no more than 6 in 24 hours. phenazopyridine (PYRIDIUM) 200 mg tablet Take 1 tablet by mouth three times daily as needed for pain. (Patient not taking: Reported on 09/25/2022) EPINEPHrine (EPIPEN 2-ARCHANA) 0.3 mg/0.3 mL auto-injector DIRECTED AT ONSET OF EXPOSURE TO ALLERGEN cetirizine (ZYRTEC) 10 mg tablet cholecalciferol, vitamin D3, (VITAMIN D3 ORAL) Take 5,000 Units by mouth once daily. VIT/IRON FUMARATE/FA ( FORMULA AND FOLIC ACD ORAL) Take by mouth. No current facility-administered medications for this visit. ALLERGIES Allergen Reactions Bee Pollen Itching, Swelling Itching and swelling of throat Seasonal Allergies Itching Tree Nuts Swelling Social History Tobacco Use Smoking status: Never Smokeless tobacco: Never Vaping Use Vaping Use: Never used Substance Use Topics Alcohol use: Not Currently Drug use: No ROS: See HPI PE: LMP 06/09/2021 Gen: AANDOX3, NAD, non-toxic appearing HEENT: PERRLA, EOMs intact b/l, nares without drainage, pharynx without erythema, exudate, lesions, or drainage. Uvula midline. Neck: [id number] Right 1st rib inhalation dysfunction Suboccipital muscle tension and dysfunction right head base [id number] Left anterior innominate ASSESSMENT/PLAN: 1. Neck pain - ICD9: 723.1, ICD10: M54.2 (primary diagnosis) OMT: Discussed risks, benefits, alternatives, and potential SEs of treatment. Patient wished to proceed with OMT. OMT was performed to the cervical region, thoracic region, head region, pelvis region and ribs including soft tissue, functional methods, and HVLA. Patient tolerated treatment well with good release, increase ROM, and decrease in pain, without complications. Instructed patient to drink plenty of water. Gentle stretches at home. 2. Somatic dysfunction of head region - ICD9: 739.0, ICD10: M99.00 OMT: Discussed risks, benefits, alternatives, and potential SEs of treatment. Patient wished to proceed with OMT. OMT was performed to the cervical region, thoracic region, head region, pelvis region and ribs including soft tissue, functional methods, and HVLA. Patient tolerated treatment well with good release, increase ROM, and decrease in pain, without complications. Instructed patient to drink plenty of water. Gentle stretches at home. 3. Somatic dysfunction of spine, cervical - ICD9: 739.1, ICD10: M99.01 OMT: Discussed risks, benefits, alternatives, and potential SEs of treatment. Patient wished to proceed with OMT. OMT was performed to the cervical region, thoracic region, head region, pelvis region and ribs including soft tissue, functional methods, and HVLA. Patient tolerated treatment well with good release, increase ROM, and decrease in pain, without complications. Instructed patient to drink plenty of water. Gentle stretches at home. 4. Somatic dysfunction of spine, thoracic - ICD9: 739.2, ICD10: M99.02 OMT: Discussed risks, benefits, alternatives, and potential SEs of treatment. Patient wished to proceed with OMT. OMT was performed to the cervical region, thoracic region, head region, pelvis region and ribs including soft tissue, functional methods, and HVLA. Patient tolerated treatment well with good release, increase ROM, and decrease in pain, without complications. Instructed patient to drink plenty of water. Gentle stretches at home. 5. Somatic dysfunction of pelvic region - ICD9: 739.5, ICD10: M99.05 OMT: Discussed risks, benefits, alternatives, a (more content not included)... [facility] 01-26-2023 History of Present illness Narrative CC: Rosalinda Garcia is a 32 year old female who presents to the office for OMT HPI: Recurrent neck and upper back and low back discomfort and muscle tension symptoms, no paresthesias or weakness. No injuries. No fevers. Has benefited from OMT, requesting this today PAST MEDICAL HISTORY Diagnosis Date Abnormal Pap smear of cervix 2011 Pt unsure of treatment , believes it was cryo Anemia Atypical squamous cells cannot exclude high grade squamous intraepithelial lesion on cytologic smear of cervix (ASC-H) 11/2020 Axillary accessory breast tissue 10/08/2019 Complication of anesthesia N&V Multiple thyroid nodules 09/25/2022 Pap smear abnormality of cervix/human papillomavirus (HPV) positive 11/2020 Seasonal allergies PAST SURGICAL HISTORY Procedure Laterality Date ADENOIDECTOMY PRIMARY <AGE 11 Adenoidectomy BREAST AUGMENTATION W/PROSTHETIC IMPLANT DELIVERY ONLY N/A 04/01/2016 DELIVERY ONLY 10/07/2017 C/S transverse CRYOCAUTERY OF CERVIX PAST SURGICAL HISTORY OF 2011 lymph node under chin removed TONSILLECTOMY PRIMARY/SECONDARY <AGE 11 Tonsillectomy Current Outpatient Medications Medication Sig FLUoxetine (PROZAC) 10 mg capsule Take 1 capsule by mouth once daily. benzonatate (TESSALON PERLE) 100 mg capsule Take 1-2 capsules tid prn, no more than 6 in 24 hours. phenazopyridine (PYRIDIUM) 200 mg tablet Take 1 tablet by mouth three times daily as needed for pain. (Patient not taking: Reported on 09/25/2022) EPINEPHrine (EPIPEN 2-ARCHANA) 0.3 mg/0.3 mL auto-injector DIRECTED AT ONSET OF EXPOSURE TO ALLERGEN cetirizine (ZYRTEC) 10 mg tablet cholecalciferol, vitamin D3, (VITAMIN D3 ORAL) Take 5,000 Units by mouth once daily. VIT/IRON FUMARATE/FA ( FORMULA & FOLIC ACD ORAL) Take by mouth. No current facility-administered medications for this visit. ALLERGIES Allergen Reactions Bee Pollen Itching, Swelling Itching and swelling of throat Seasonal Allergies Itching Tree Nuts Swelling Social History Tobacco Use Smoking status: Never Smokeless tobacco: Never Vaping Use Vaping Use: Never used Substance Use Topics Alcohol use: Not Currently Drug use: No ROS: See HPI PE: LMP 06/09/2021 Gen: A&OX3, NAD, non-toxic appearing HEENT: PERRLA, EOMs intact b/l, nares without drainage, pharynx without erythema, exudate, lesions, or drainage. Uvula midline. Neck: [id number] Right 1st rib inhalation dysfunction Suboccipital muscle tension and dysfunction right head base [id number] Left anterior innominate ASSESSMENT/PLAN: 1. Neck pain - ICD9: 723.1, ICD10: M54.2 (primary diagnosis) OMT: Discussed risks, benefits, alternatives, and potential SEs of treatment. Patient wished to proceed with OMT. OMT was performed to the cervical region, thoracic region, head region, pelvis region and ribs including soft tissue, functional methods, and HVLA. Patient tolerated treatment well with good release, increase ROM, and decrease in pain, without complications. Instructed patient to drink plenty of water. Gentle stretches at home. 2. Somatic dysfunction of head region - ICD9: 739.0, ICD10: M99.00 OMT: Discussed risks, benefits, alternatives, and potential SEs of treatment. Patient wished to proceed with OMT. OMT was performed to the cervical region, thoracic region, head region, pelvis region and ribs including soft tissue, functional methods, and HVLA. Patient tolerated treatment well with good release, increase ROM, and decrease in pain, without complications. Instructed patient to drink plenty of water. Gentle stretches at home. 3. Somatic dysfunction of spine, cervical - ICD9: 739.1, ICD10: M99.01 OMT: Discussed risks, benefits, alternatives, and potential SEs of treatment. Patient wished to proceed with OMT. OMT was performed to the cervical region, thoracic region, head region, pelvis region and ribs including soft tissue, functional methods, and HVLA. Patient tolerated treatment well with good release, increase ROM, and decrease in pain, without complications. Instructed patient to drink plenty of water. Gentle stretches at home. 4. Somatic dysfunction of spine, thoracic - ICD9: 739.2, ICD10: M99.02 OMT: Discussed risks, benefits, alternatives, and potential SEs of treatment. Patient wished to proceed with OMT. OMT was performed to the cervical region, thoracic region, head region, pelvis region and ribs including soft tissue, functional methods, and HVLA. Patient tolerated treatment well with good release, increase ROM, and decrease in pain, without complications. Instructed patient to drink plenty of water. Gentle stretches at home. 5. Somatic dysfunction of pelvic region - ICD9: 739.5, ICD10: M99.05 OMT: Discussed risks, benefits, alternatives, and potential SEs of treatment. Patient wished to proceed with OMT. OMT was performed to the cervical region, thoracic region, head region, pelvis region and ribs including soft tissue, functional methods, and HVLA. Patient tolerated treatment well with good release, increase ROM, and decrease in pain, without complications. Instructed patient to drink plenty of water. Gentle stretches at home. 6. Somatic dysfunction of rib - ICD9: 739.8, ICD10: M99.08 OMT: Discussed risks, benefits, alternatives, and potential SEs of treatment. Patient wished to proceed with OMT. OMT was performed to the cervical region, thoracic region, head region, pelvis region and ribs including soft tissue, functional methods, and HVLA. Patient tolerated treatment well with good release, increase ROM, and decrease in pain, without complications. Instructed patient to drink plenty of water. Gentle stretches at home. Benny Glez DO Return if no improvement. Follow up with Benny Glez DO. To ER if develops chest pain, shortness of breath. Discussed risks, benefits, alternatives, and potential side effects of medications. Patient/Guardian expressed understanding and agreed with the plan. See patient instructions. Benny Glez DO [address] [place] [address] documented in this encounter [facility] 12-15-2022 Miscellaneous Notes Pt informed Mar Armenta Her A1C (3-month blood glucose average) level is the best thing to look at for diabetes. It looks great, no concerns at all for diabetes. Qian Pete APRN.INSURANCE OFFICE SUPERVISOR documented in this encounter [facility] 11-23-2022 Miscellaneous Notes See telephone note documented in this encounter [facility] 09-25-2022 Note HNO ID: [id number] Author: Benny Glez, DO Service: ? Author Type: Physician Type: Progress Notes Filed: 09/25/2022 1:01 PM Note Text: CC: Rosalinda Garcia is a 32 year old female who presents to the office for physical. HPI: Overall doing well Anxiety, mood, stable, taking prozac 10 mg a day, no concerns. Overweight, starting weight around 160 lbs. Has been taking semaglutide low dose per wellness/obesity medicine specialist for the last 1-2 months and tolerating well Hx of colloid thyroid nodules. Last thyroid US 3 years ago 02/2020, had recent TSH and free t4 and free t3 levels which were normal by specialist as above Diagnosed with PCOS by Dr. 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 PAST MEDICAL HISTORY Diagnosis Date Abnormal Pap smear of cervix 2011 Pt unsure of treatment , believes it was cryo Anemia Atypical squamous cells cannot exclude high grade squamous intraepithelial lesion on cytologic smear of cervix (ASC-H) 11/2020 Axillary accessory breast tissue 10/08/2019 Complication of anesthesia NANDV Pap smear abnormality of cervix/human papillomavirus (HPV) positive 11/2020 Seasonal allergies PAST SURGICAL HISTORY Procedure Laterality Date ADENOIDECTOMY PRIMARY Adenoidectomy BREAST AUGMENTATION W/PROSTHETIC IMPLANT DELIVERY ONLY N/A 04/01/2016 DELIVERY ONLY 10/07/2017 C/S transverse CRYOCAUTERY OF CERVIX PAST SURGICAL HISTORY OF 2011 lymph node under chin removed TONSILLECTOMY PRIMARY/SECONDARY Tonsillectomy Social History: Social History Tobacco Use Smoking status: Never Smokeless tobacco: Never Vaping Use Vaping Use: Never used Substance Use Topics Alcohol use: Not Currently Drug use: No FAMILY HISTORY Problem Relation Age of Onset No Known Problems Mother Lipids Father Hypertension Father other (basal cell ca) Father No Known Problems Brother No Known Problems Brother Blood Disease Maternal Grandmother Osteoporosis Maternal Grandmother Arthritis Paternal Grandmother Colon Cancer Paternal Grandmother Heart Paternal Grandmother a fib, leaky valve Hypertension Paternal Grandmother Alzheimer's Disease Paternal Grandfather Allergies Maternal Uncle Thyroid Paternal Aunt No Known Problems Daughter Heart Son Bicuspid aortic valve and mild aortic stenosis Current Outpatient prescriptions: FLUoxetine (PROZAC) 10 mg capsule Take 1 capsule by mouth once daily. EPINEPHrine (EPIPEN 2-ARCHANA) 0.3 mg/0.3 mL auto-injector DIRECTED AT ONSET OF EXPOSURE TO ALLERGEN cetirizine (ZYRTEC) 10 mg tablet cholecalciferol, vitamin D3, (VITAMIN D3 ORAL) Take 5,000 Units by mouth once daily. VIT/IRON FUMARATE/FA ( FORMULA AND FOLIC ACD ORAL) Take by mouth. benzonatate (TESSALON PERLE) 100 mg capsule Take 1-2 capsules tid prn, no more than 6 in 24 hours. phenazopyridine (PYRIDIUM) 200 mg tablet Take 1 tablet by mouth three times daily as needed for pain. (Patient not taking: Reported on 09/25/2022) Allergies: ALLERGIES Allergen Reactions Bee Pollen Itching, Swelling Itching and swelling of throat Seasonal Allergies Itching Tree Nuts Swelling ROS: See HPI PE: 09/25/22 0831 BP: 100/62 BP Site: Left Arm BP Position: Sitting BP Cuff Size: Regular Adult Pulse: 64 Resp: 12 Weight: 67.2 kg (148 lb 3.2 oz) Height: 159.5 cm (5' 2.8 ) Gen: AANDO, NAD, non-toxic appearing, Pleasant, cooperative HEENT: NT/AC, PERRLA, EOMs intact b/l, nares clear and patent b/l, pharynx without erythema, exudate or lesions. Uvula midline. MMM, EACs without erythema or debris. TMs pearly owen with intact landmarks b/l. Neck: supple, No cervical LAD, no thyromegaly, no carotid bruits CV: RRR, normal S1 and S2, no murmurs, no gallops, no rubs, Pulses 2+ and symmetric in UE and LE b/l Lungs: normal respiratory effort, CTA b/l, no wheezing or rhonchi or rales Abd: soft, NT, ND, +BS, no hepatosplenomegaly MS: FROM all 4 extremities Neuro: CN II-XII intact b/l, strength 5/5 b/l UE and LE, DTRs 2/4 UE and LE, sensation intact. Skin: warm, dry, intact, No rashes or lesions on exposed skin. ASSESSMENT/PLAN: 1. Well adult exam - ICD9: V70.0, ICD10: Z00.00 (primary diagnosis) - Counseled on healthy diet and regular exercise - Calcium intake with supplements or by diet of 1000 mg/day for under 50, 0270-6871 mg/day for 50+ - Discussed need and benefit for weight loss. BMI 26.42 kg/(m2) 2. Situational anxiety - ICD9: 300.09, ICD10: F41.8 rx refilled, stable - FLUOXETINE 10 MG CAPSULE 3. Multiple thyroid nodules - ICD9: 241.1, ICD10: E04.2 - recheck thyroid US - US THYROID/PARATHYROID 4. Fatigue, unspecified type - ICD9: 780.79, ICD10: R53.83 - see above Benny Glez, DO To ER if develops chest pain, shortness of breath, or severe worsening of symptoms. Discussed risks, benefits, alternatives, and potential side effects of medications. Patient expressed understanding a (more content not included)... [facility] 09-08-2022 Miscellaneous Notes Patient has been identified by name and date of : Yes, Ashly Del Rio RN Date 09/08/2022 Time 8:46 am Patient phones for refill(s): Requested Prescriptions Pending Prescriptions Disp Refills FLUoxetine (PROZAC) 10 mg capsule 30 capsule 0 Sig: Take 1 capsule by mouth once daily. Patient completely out of medication as of 09/07/2022. Date of last office visit with pcp: 06/10/2022 Future appt: 09/25/2022 Last 2 Encounter Wt Readings: Date: Wt: 06/10/2021 69.9 kg (154 lb) 05/08/2021 71.7 kg (158 lb) Previous labs/tests for medication: Blood Pressure: BUN (mg/dL) Date Value 06/08/2021 16 11/28/2020 16 Sodium (mmol/L) Date Value 06/08/2021 141 11/28/2020 135 Last 1 Encounter BP Readings: Date: BP: 06/10/2021 124/70 Liver Function: ALT (U/L) Date Value 06/08/2021 12 02/12/2020 20 AST (U/L) Date Value 06/08/2021 19 02/12/2020 20 Please advise. Thank you. Ashly Del Rio, RN documented in this encounter [facility] 08-04-2022 Miscellaneous Notes Pt notified of such. Overdue for office visit, no additional refills. The following approved medication requests have been transmitted electronically. Requested Prescriptions Signed Prescriptions Disp Refills FLUoxetine (PROZAC) 10 mg capsule 30 capsule 0 Sig: Take 1 capsule by mouth once daily. Authorizing Provider: SERA BRIDGES Ordering User: QIAN PETE APRN.INSURANCE OFFICE SUPERVISOR Patient phones requesting refills as follows: Requested Prescriptions Pending Prescriptions Disp Refills FLUoxetine (PROZAC) 10 mg capsule 30 capsule 2 Sig: Take 1 capsule by mouth once daily. PAUL-06/10/21 Labs-06/08/21 NOV-09/25/22 Please review and advise. Negrita Plaza LPN documented in this encounter [facility] 04-28-2022 Miscellaneous Notes Requested Prescriptions Pending Prescriptions Disp Refills FLUoxetine (PROZAC) 10 mg capsule 30 capsule 2 Sig: Take 1 capsule by mouth once daily. PAUL 06/10/2021 NOV not scheduled at this time Mar Armenta documented in this encounter [facility] 01-27-2022 Miscellaneous Notes Handled in refill encounter. Pt made aware. Juli Ryan Ma documented in this encounter [facility] 01-27-2022 Miscellaneous Notes Paul--06/10/21 Nov--nothing Last refill--10/28/21 30 with 2 refills Last labs--06/11/21 [address] this encounter [facility] 12-09-2021 Miscellaneous Notes Please advise if willing to order. Juli Ryan Ma documented in this encounter [facility] 10-28-2021 Miscellaneous Notes Patient phones requesting refills as follows: Requested Prescriptions Pending Prescriptions Disp Refills FLUoxetine (PROZAC) 10 mg capsule [Pharmacy Med Name: FLUOXETINE HCL 10 MG CAPSULE] 30 capsule 2 Sig: take 1 capsule by mouth once daily PAUL-06/10/21 Labs-06/11/21 NOV-none med filled 07/24/21 Please review and advise. Negrita Plaza LPN documented in this encounter [facility] 10-09-2021 History of Present illness Narrative Ms Garcia is a 31-year-old woman with no significant medical history who is presenting for evaluation of chest pain.Patient reports having over the last 3 to 4 months intermittent stabbing-like chest pain that is unrelated to exertion, diet or position. Reports pain occurs a few times a week every other month, that can last from a few minutes to hours, and is of mild to moderate intensity. Patient does not recognize any exacerbating or alleviating factors. She is a mother of three and is really active and denies any chest pain with exertion.She also denies palpitations, dizziness or syncope. Denies any history of smoking. Reports her father had a history of high cholesterol, and her grandparents had heart disease. One of her sons was diagnosed with a bicuspid aortic valve. [facility] [employer] Phone: 10-06-2021 History of Present illness Narrative Ms Garcia is a 31-year-old woman with no significant medical history who is presenting for evaluation of chest pain.Patient reports having over the last 3 to 4 months intermittent stabbing-like chest pain that is unrelated to exertion, diet or position. Reports pain occurs a few times a week every other month, that can last from a few minutes to hours, and is of mild to moderate intensity. Patient does not recognize any exacerbating or alleviating factors. She is a mother of three and is really active and denies any chest pain with exertion.She also denies palpitations, dizziness or syncope. Denies any history of smoking. Reports her father had a history of high cholesterol, and her grandparents had heart disease. One of her sons was diagnosed with a bicuspid aortic valve. [facility] [employer] Work Phone: 10-05-2021 Note Provider Impressions Patient is here for results of evaluation for pelvic pain. Cultures were unremarkable ultrasound was completely normal as well discussed with patient that the only option we have left is to proceed with a last pleuroscopy to evaluate for adhesions or possible endometriosis with possible treatment and cleaning. Patient reports she wants to think about it #2 progressively heavier periods so far the ultrasound looks normal discussed with patient her options are trying a control pill versus Depo-Provera versus an IUD Mirena versus an ablation and again patient will go home and discussed with and will let us know how she wants to proceed. History of an abnormal Pap smear follow-up Pap in February 2022 Chief Complaint PT HERE TODAY TO GO OVER ULTRASOUND RESULTS. PT STATES SHE IS STILL BLEEDING WELL. LMP 09/29/21 History of Present IllnessPatient is here for follow-up for pelvic pain and progressively heavier menses. Patient had ultrasound done and reviewed her records from her previous doctor Active Problems Problems Abnormal echocardiogram affecting antepartum care of mother (655.83) (O35.8XX0) Axillary lymphadenopathy (785.6) (R59.0) Breast pain, left (611.71) (N64.4) Dense breast (793.82) (R92.2) Dysuria (788.1) (R30.0) Headache (784.0) (R51.9) Pelvic pain in female (625.9) (R10.2) Screening for STD (sexually transmitted disease) (V74.5) (Z11.3) Small fiber neuropathy (356.9) (G62.9) Vaginitis due to Sydnie (112.1) (B37.3) Past Medical History Problems History of Delivery of by section (669.70) (O82) 04/01/2016-39 dftgf-F-kgaooxu-MALE-8lbs 9 oz 10/07/2017-40 pocnw-d-ydtkypt- FEMALE-8lbs 11 oz History of Menstruation age 15 History of Normal vaginal delivery (650) (O80) 08/14/2019- 39 weeks- YESPJTX-WRKE-8ywl 6 oz History of Pap test, as part of routine gynecological examination (V76.2) (Z01.419) 11/28/2020 Surgical History Problems History of Breast augmentation History of section 2016 2017 History of Cyst excision History of Lymph node surgery History of Tonsillectomy with adenoidectomy Family History Son Family history of bicuspid aortic valve (V17.49) (Z82.79) Grandmother Family history of malignant neoplasm of colon (V16.0) (Z80.0) Family history of osteoporosis (V17.81) (Z82.62) Maternal Grandmother Family history of bleeding disorder (V18.3) (Z83.2) Family history of osteoporosis (V17.81) (Z82.62) Paternal Grandmother Family history of cardiac disorder (V17.49) (Z82.49) Family history of Irregular heart beat Grandfather Family history of cardiac disorder (V17.49) (Z82.49) Maternal Grandfather Family history of cardiac disorder (V17.49) (Z82.49) Family history of myocardial infarction (V17.3) (Z82.49) Uncle Family history of cardiac disorder (V17.49) (Z82.49) Social History Problems Consumes alcohol weekly (V49.89) (Z78.9) Daily caffeine consumption, 1 serving a day Does not use illicit drugs (V49.89) (Z78.9) Non-smoker (V49.89) (Z78.9) Sexually active Allergies Medication No Known Drug Allergies Recorded By: Michele Linares; 03/22/2019 10:01:36 AM NonMedication Latex Recorded By: Promise Major; 05/04/2019 10:00:39 AM Nuts Recorded By: Hanny Kamara; 09/21/2021 1:43:53 PM Current Meds Medication NameInstruction Fluconazole 100 MG Oral TabletTAKE 1 TABLET DAILY. Multivitamins CAPS PROzac 10 MG TABSTAKE 1 TABLET DAILY DIRECTED. Sulfamethoxazole-Trimethoprim 800-160 MG Oral TabletTake one tablet twice daily x 5d Vitamin D CAPSone tab daily ZyrTEC Allergy 10 MG Oral CapsuleOne cap daily Vitals Vital Signs Recorded: 05Oct2021 01:14PM Abrfrqld949 Yhctfqtct63 Height5 ft 2 in Nhedhd884 lb 13.57 oz BMI Bwhlgeknxx08.87 kg/m2 BSA Calculated1.73 [id number] Physical Exam Constitutional: Healthy-appearing in no distress. Head and Face: No obvious lesions. Neck: Supple without adenopathy. Pulmonary: Breathing comfortably. Musculoskeletal: Mobility. Psychiatric: Appropriately oriented with normal mood and affect. Signatures Electronically signed by : Maribel Lorenzo DO; Oct 05 2021 1:36PM EST (Author) [facility] 09-16-2021 History of Present illness Narrative Patient is a 31-year-old woman who reports that for a couple months now she has been having pain with intercourse usually after intercourse she feels very bloated a lot of pelvic and back pressure. She reports that she had a slight discharge but is currently on Flagyl for BV. The Flagyl was prescribed at an urgent care last week when the pain was significant and she went in for evaluation and they told her she did not have a UTI but suspect that she had BV. Patient also reports that in the last several months she has been experiencing progressively heavier and longer menses sometimes lasting 7 to 10 days and she is using multiple large pads a day. Patient also reports a history of abnormal Pap smears and reports she had a colposcopy done last fall with biopsies. Those records are not available to us at present. Patient denies breakthrough bleeding or abnormal discharge at present [address] Work Phone: 07-24-2021 Miscellaneous Notes The following approved medication requests have been transmitted electronically. Signed Prescriptions Disp Refills FLUoxetine (PROZAC) 10 mg capsule 30 capsule 2 Sig: Take 1 capsule by mouth once daily. BRIE: No Sera Zurawick, INDEX EDITOR.INSURANCE OFFICE SUPERVISOR rx pended, please advise Mar Hamlin Ma documented in this encounter [facility] 06-22-2021 Miscellaneous Notes Pt. informed. Shanelle Wade LPN Patient calling in wanting to picking supervisor her MRI disc from that she dropped off for Dr Glez. Please call patient and let her know when she can pick this up. Aviva Decker Pss documented in this encounter [facility] 06-22-2021 History of Present illness Narrative 31 y/o RH pleasant F here for paresthesias and abnormal MRI brain evaluation.arrives with .PCP Benny Glez.she has tingling of legs for 3-4 weeks, that sometimes occurs in arms. happens b/l. random. no triggers. sometimes feels like bugs are crawling on her. can be annoying.no pain.no weakness.can last hours long.She does feel like maybe these can be stress-induced. She recently went on vacation and did not have any other episodes of tingling. She reports no skin changes or rashes. She reports no back or neck pain.has hx of POTS- got better after . has passed out once in a wedding that was hot. was getting dizzy spells. Prozac helped her post anxiety and this helps.had COVID in January.She had blood work recently for her annual checkup with her PCP at [facility]. She printed out copies for me to review today. She had cholesterol, hemoglobin A1c, vitamin B6, vitamin B12, TSH, free T4, KRISTEN all within normal. She had a comprehensive metabolic panel which was normal. She had ESR which was normal.She states that she has had episodes of blurred vision in R, would last 1 minute. would get chest pains on r and left side of her chest that has been more frequent over the past couple weeks.MRI Brain 06-11-21 ordered by Benny Glez - reviewed personally, no abnormal FLAIR signal changes seen. 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 Glez. Qian Pete APRN.INSURANCE OFFICE SUPERVISOR Patient asking pcp to call her. Aware Dr. Glez is out next week. Patient has questions about the MRI results. Please phone her on her cell: [phone]. documented in this encounter [facility] 06-12-2021 Miscellaneous Notes Pt. informed. Shanelle Wade LPN Please inform patient that her MRI brain shows a few punctate non specific subcortical white matter changes within the cerebral hemisheres bilaterally which is a non specific finding that can be seen with patients with migraine headaches, HTN, Small vessel ischemia changes or demyelinating changes. I would recommend that she has a follow up with a Neurologist that can do a good neurological examination on her and re-read this MRI from specialist perspective. Benny Glez DO Patient calls and states that hospital sent results through the PACT system. Patient asking if provider can take a look at results and advise? Please review and advise, Chanel Partida RN documented in this encounter [facility] 06-11-2021 Miscellaneous Notes Fax number provided. documented in this encounter [facility] 06-11-2021 Miscellaneous Notes Noted, thank you. Qian Pete APRN.INSURANCE OFFICE SUPERVISOR Andrew with [facility] in [place] called and wanted Pts last office visit and Head CT. Sent to fax # [phone]. She was told I could give her Medical Records number if she wanted the last 3-6 months of records. documented in this encounter [facility] 06-11-2021 Miscellaneous Notes Patient calls back and requests orders for MRI and EMG be faxed to [facility] d/t insurance. Faxed to [phone] per patient request. Ashly Del Rio RN documented in this encounter [facility] 06-11-2021 Miscellaneous Notes Pt called and requested her order for MRI be faxed to . Her works there. FAX: [phone]. Done. Lashonda Sorenson LPN documented in this encounter [facility] 06-10-2021 History of Present illness Narrative CC: Rosalinda Garcia is a 31 year old female who presents to the office for several symptoms. HPI: She states that for the last few months she has been having episodes of intermittent blurring of vision, b/l eyes, no obvious dry eye symptoms or Watering or eye pain. Comes and goes without obvious trigger. Also noticing tingling/burning discomfort, present b/l lower legs and thighs. Comes and goes. Sometimes also with burning/tingling into hands and lower arms. Not related to activity. Occurring spontaneously without obvious trigger. No new medication changes. No falls, no obvious new weakness, no new headaches or hearing changes or fevers or chills. Also noticing some intermittent sharp areas of discomfort in chest wall area. Hx of breast implant about 10 years ago PAST MEDICAL HISTORY Diagnosis Date Abnormal Pap smear of cervix 2011 Pt unsure of treatment , believes it was cryo Anemia Atypical squamous cells cannot exclude high grade squamous intraepithelial lesion on cytologic smear of cervix (ASC-H) 11/2020 Axillary accessory breast tissue 10/08/2019 Complication of anesthesia N&V Pap smear abnormality of cervix/human papillomavirus (HPV) positive 11/2020 Seasonal allergies PAST SURGICAL HISTORY Procedure Laterality Date ADENOIDECTOMY PRIMARY <AGE 11 Adenoidectomy BREAST AUGMENTATION W/PROSTHETIC IMPLANT DELIVERY ONLY N/A 04/01/2016 DELIVERY ONLY 10/07/2017 C/S transverse CRYOCAUTERY OF CERVIX PAST SURGICAL HISTORY OF 2011 lymph node under chin removed TONSILLECTOMY PRIMARY/SECONDARY <AGE 11 Tonsillectomy Current Outpatient Medications Medication Sig FLUoxetine (PROZAC) 10 mg capsule Take 1 capsule by mouth once daily. phenazopyridine (PYRIDIUM) 200 mg tablet Take 1 tablet by mouth three times daily as needed for pain. EPINEPHrine (EPIPEN 2-ARCHANA) 0.3 mg/0.3 mL auto-injector DIRECTED AT ONSET OF EXPOSURE TO ALLERGEN cetirizine (ZYRTEC) 10 mg tablet cholecalciferol, vitamin D3, (VITAMIN D3 ORAL) Take 5,000 Units by mouth once daily. VIT/IRON FUMARATE/FA ( FORMULA & FOLIC ACD ORAL) Take by mouth. benzonatate (TESSALON PERLE) 100 mg capsule Take 1-2 capsules tid prn, no more than 6 in 24 hours. No current facility-administered medications for this visit. ALLERGIES Allergen Reactions Bee Pollen Itching, Swelling Itching and swelling of throat Seasonal Allergies Itching Tree Nuts Swelling Social History Tobacco Use Smoking status: Never Smoker Smokeless tobacco: Never Used Vaping Use Vaping Use: Never used Substance Use Topics Alcohol use: Not Currently Drug use: No ROS: See HPI PE: BP 124/70 Pulse 80 Temp (Src) 98 (Left Tympanic) Resp 16 Wt 154 lb (69.9kg) LMP 06/09/2021 Gen: A&OX3, NAD, non-toxic appearing HEENT: PERRLA, EOMs intact b/l, nares without drainage, pharynx without erythema, exudate, lesions, or drainage. Uvula midline. Neck: No LAD, no thyromegaly, no meningismus. CV: RRR, no murmur Lungs: CTA b/l, no wheezing Skin: No rashes, lesions, or wounds on exposed skin. Neuro: + hyperreflexia b/l patellar at 3/4 b/l, normal 2/4 biceps and achilles DTR reflex b/l Sensation b/l wnl legs and arms Strength b/l legs and arms wnl Normal rapid alternating hand movements No edema, normal pulses ASSESSMENT/PLAN: 1. Paresthesias - ICD9: 782.0, ICD10: R20.2 (primary diagnosis) Check labs as ordered, EMG/nerve conduction testing b/l legs and MRI brain, unsure of cause of symptoms. Recently reviewed other labs. - VITAMIN B6/PYRIDOXIN - VITAMIN B12 BLOOD - EMG(NEURO/NI) - FOLATE SERUM - VITAMIN B2/RIBOFLAV 2. Blurred vision, bilateral - ICD9: 368.8, ICD10: H53.8 Check labs as ordered, EMG/nerve conduction testing b/l legs and MRI brain, unsure of cause of symptoms. Recently reviewed other labs. - VITAMIN B6/PYRIDOXIN - VITAMIN B12 BLOOD - FOLATE SERUM - VITAMIN B2/RIBOFLAV 3. Fatigue, unspecified type - ICD9: 780.79, ICD10: R53.83 Check labs as ordered, EMG/nerve conduction testing b/l legs and MRI brain, unsure of cause of symptoms. Recently reviewed other labs. - VITAMIN B6/PYRIDOXIN - VITAMIN B12 BLOOD - FOLATE SERUM - VITAMIN B2/RIBOFLAV 4. Elevated cortisol level - ICD9: 790.6, ICD10: R79.89 Check labs as ordered, EMG/nerve conduction testing b/l legs and MRI brain, unsure of cause of symptoms. Recently reviewed other labs. - ACTH BLD - CORTISOL BLD 5. Costochondral chest pain - ICD9: 786.59, ICD10: R07.89 Check labs as ordered, EMG/nerve conduction testing b/l legs and MRI brain, unsure of cause of symptoms. Recently reviewed other labs. - C-REACTIVE PROTEIN (CRP) - KRISTEN BLOOD - RHEUMATOID FACTOR BL 6. Paresthesia of skin - ICD9: 782.0, ICD10: R20.2 Check labs as ordered, EMG/nerve conduction testing b/l legs and MRI brain, unsure of cause of symptoms. Recently reviewed other labs. - MRI BRAIN WO IVCON Benny Glez DO Return if no improvement. Follow up with Benny Glez DO. To ER if develops chest pain, shortness of breath Discussed risks, benefits, alternatives, and potential side effects of medications. Patient/Guardian expressed understanding and agreed with the plan. See patient instructions. Benny Glez DO [address] [place] [address] documented in this encounter [facility] 05-18-2021 Miscellaneous Notes Noted Benny Glez DO Spoke with pt gave information provided. Pt voices understanding. Pt states works for so thety have to see thise doctors. Will keep us updated. Okay to continue to wear the brace for 2 more weeks or can have opinion by Orthopedics. Dr. Catalan or Dr. Berkowitz if she prefers. Benny Glez DO Pt. states still very painful without the brace. How long should she continue wearing it? She is taking Naproxen as needed and still icing twice daily. Without brace has some nerve pain fingers to elbow. Shanelle Wade LPN X-ray was negative and shows no acute concerns. Impression shows: the right wrist with no acute osseous, articular or soft tissue abnormality. Sera Shin APRN.GUANAKO Patient calling to check on status of recent wrist xray result. Patient updated that result was sent to provider for review and she will advise. Patient wanted to know how long she should continue wearing a wrist brace and states her wrist has started to hurt a bit more since the xray. Thank you. documented in this encounter [facility] 09-13-2020 History of Present illness Narrative last UTI > 1 year agohas fullness in bladder--bloatingurgencydoes not usually get blood in urine or pain with urinationtoday took an OTC urine dip test-- +nitrites not sure if + leukshas had a + UCxno dysuria+frequency+urgencystands up and has to urinate againno F, chills,achesno N,V,Dno back pain+tenderness over bladderno CVA Tno abn vag pain bleeding or d/cno concern of STDno h/o kidney stone or infectionall other ROS (-) [facility] Phone: 08-12-2020 History of Present illness Narrative last UTI > 1 year agohas fullness in bladder--bloatingurgencydoes not usually get blood in urine or pain with urinationtoday took an OTC urine dip test-- +nitrites not sure if + leukshas had a + UCxno dysuria+frequency+urgencystands up and has to urinate againno F, chills,achesno N,V,Dno back pain+tenderness over bladderno CVA Tno abn vag pain bleeding or d/cno concern of STDno h/o kidney stone or infectionall other ROS (-) [facility] Work Phone: documented as of this encounter (statuses as of 06/11/2021) [facility] History of Past illness Narrative* Problem Noted Date Resolved Date Unplanned wanted 12/25/201803/21 Overview: 12/25/2018This is a surprise . Patient delivered her previous child 10/2017.TKRn with history of section, ante 12/25/2018 10/08/2019 Overview: 01/30/19- Patient was previously wanting repeat C/S but asking about TOLAC after 2 C/S. When asked if she desires PPTL she stated she does not want this done. Reviewed risks vs. Benefits of TOLAC after 2 C/S. Not a complete contraindication as she did not have TOLAC last due to size similar to first child. success rate 62%. Discussed with patient decreased possibility of successful due to history of first labor and CPD. First baby 8lb 9 oz and second baby 8lb 7oz. Discussed growth US at 39 weeks and await spontaneous labor till 40 weeks, would not recommend IOL. If baby size similar to other two children, would recommend repeat C/S. Patient is agreeable and reasonable to this option. Will discuss further with physicians. Patient still deciding on best plan for her.Aviva Barreto APRN.CNM 12/25/2018 Pt had 2 previous C sections. She desires a repeat C section by Dr Alonso.Considering PPTL. TRINIDAD on PPTL ordered. KRN Nausea and vomiting during 12/25/2018 11/28/2020 Overview: 12/25/2018Patient is complaining of nausea and occasional vomiting in . Dietary considerations discussed . Vitamin B6 recommended. Advised patient to call/come in if she is unable to keep any food or fluids down in a 24-hour period.TKRN Excessive growth affec ting management of in third trimester 10/06/2017 11/18/2017 History of delivery 02/21/2017 Overview: August 16, 2017 Plans tolac, agrees to epidural but would prefer not to have it dosed. TOLAC [facility] consent signed. Milagro Alonso MD 02/21/2017 Pt had a previous C section for CPD. She desires a repeat C section by Dr Alonso , but would like to discuss a possible with Dr lAonso. She will do this at NOB visit.TKRN Risks/benefits/alternatives discussed with patient regarding trial of labor and potential for uterine rupture. Risks include but are not limited to maternal hemorrhage, risk of injury to adjacent organs including potential hysterectomy. risks discussed as well, including potential for permanent neurologic injury or . Overall uterine rupture risk is less than 1% after one section. Is a trial of labor contraindicated for this patient? No If no, calculate rate of success using pre-labor factors: http://www.[facility].edu/mfmu/vagbirth.html Predicted chance of vaginal after : 65% Patient's plan for delivery mode: Repeat , unless enters labor before schedule c/s and EFW same or less than previous delivery then would consider TOLAC Milagro Alonso MD Short interval between pregn ancies affecting , antepartum 02/21/2017 11/18/2017 Overview: 02/21/2017Patient delivered her previous child 04/01/2016. TKRN GBS (group B streptococcus) UTI complicating pre gnancy 10/02/2015 05/18/2016 Encounter for supervision of normal first in third trimester 08/26/2015 05/18/2016 Overview: Girl- Brynlee documented as of this encounter (statuses as of 06/11/2021) [facility] History of Past illness Narrative* Problem Noted Date Resolved Date Unplanned wanted 12/25/201803/21 Overview: 12/25/2018This is a surprise . Patient delivered her previous child 10/2017.TKRn with history of section, ante 12/25/2018 10/08/2019 Overview: 01/30/19- Patient was previously wanting repeat C/S but asking about TOLAC after 2 C/S. When asked if she desires PPTL she stated she does not want this done. Reviewed risks vs. Benefits of TOLAC after 2 C/S. Not a complete contraindication as she did not have TOLAC last due to size similar to first child. success rate 62%. Discussed with patient decreased possibility of successful due to history of first labor and CPD. First baby 8lb 9 oz and second baby 8lb 7oz. Discussed growth US at 39 weeks and await spontaneous labor till 40 weeks, would not recommend IOL. If baby size similar to other two children, would recommend repeat C/S. Patient is agreeable and reasonable to this option. Will discuss further with physicians. Patient still deciding on best plan for her.Aviva Barreto APRN.CNM 12/25/2018 Pt had 2 previous C sections. She desires a repeat C section by Dr Alonso.Considering PPTL. TRINIDAD on PPTL ordered. KRN Nausea and vomiting during 12/25/2018 11/28/2020 Overview: 12/25/2018Patient is complaining of nausea and occasional vomiting in . Dietary considerations discussed . Vitamin B6 recommended. Advised patient to call/come in if she is unable to keep any food or fluids down in a 24-hour period.TKRN Excessive growth affec ting management of in third trimester 10/06/2017 11/18/2017 History of delivery 02/21/2017 Overview: August 16, 2017 Plans tolac, agrees to epidural but would prefer not to have it dosed. TOLAC [facility] consent signed. Milagro Alonso MD 02/21/2017 Pt had a previous C section for CPD. She desires a repeat C section by Dr Alonso , but would like to discuss a possible with Dr Alonso. She will do this at NOB visit.TKRN Risks/benefits/alternatives discussed with patient regarding trial of labor and potential for uterine rupture. Risks include but are not limited to maternal hemorrhage, risk of injury to adjacent organs including potential hysterectomy. risks discussed as well, including potential for permanent neurologic injury or . Overall uterine rupture risk is less than 1% after one section. Is a trial of labor contraindicated for this patient? No If no, calculate rate of success using pre-labor factors: http://www.bs.[facility]/mfmu/vagbirth.html Predicted chance of vaginal after : 65% Patient's plan for delivery mode: Repeat , unless enters labor before schedule c/s and EFW same or less than previous delivery then would consider TOLAC Milagro Alonso MD Short interval between pregn ancies affecting , antepartum 02/21/2017 11/18/2017 Overview: 02/21/2017Patient delivered her previous child 04/01/2016. TKRN GBS (group B streptococcus) UTI complicating pre gnancy 10/02/2015 05/18/2016 Encounter for supervision of normal first in third trimester 08/26/2015 05/18/2016 Overview: Girl- Brynlee documented as of this encounter (statuses as of 06/11/2021) [facility] History of Past illness Narrative* Problem Noted Date Resolved Date Unplanned wanted 12/25/201803/21 Overview: 12/25/2018This is a surprise . Patient delivered her previous child 10/2017.TKRn with history of section, ante 12/25/2018 10/08/2019 Overview: 01/30/19- Patient was previously wanting repeat C/S but asking about TOLAC after 2 C/S. When asked if she desires PPTL she stated she does not want this done. Reviewed risks vs. Benefits of TOLAC after 2 C/S. Not a complete contraindication as she did not have TOLAC last due to size similar to first child. success rate 62%. Discussed with patient decreased possibility of successful due to history of first labor and CPD. First baby 8lb 9 oz and second baby 8lb 7oz. Discussed growth US at 39 weeks and await spontaneous labor till 40 weeks, would not recommend IOL. If baby size similar to other two children, would recommend repeat C/S. Patient is agreeable and reasonable to this option. Will discuss further with physicians. Patient still deciding on best plan for her.Aviva Barreto APRN.AILEENM 12/25/2018 Pt had 2 previous C sections. She desires a repeat C section by Dr Alonso.Considering PPTL. TRINIDAD on PPTL ordered. KRN Nausea and vomiting during 12/25/2018 11/28/2020 Overview: 12/25/2018Patient is complaining of nausea and occasional vomiting in . Dietary considerations discussed . Vitamin B6 recommended. Advised patient to call/come in if she is unable to keep any food or fluids down in a 24-hour period.TKRN Excessive growth affec ting management of in third trimester 10/06/2017 11/18/2017 History of delivery 02/21/2017 Overview: August 16, 2017 Plans tolac, agrees to epidural but would prefer not to have it dosed. TOLAC [facility] consent signed. Milagro Alonso MD 02/21/2017 Pt had a previous C section for CPD. She desires a repeat C section by Dr Alonso , but would like to discuss a possible with Dr Alonso. She will do this at NOB visit.TKRN Risks/benefits/alternatives discussed with patient regarding trial of labor and potential for uterine rupture. Risks include but are not limited to maternal hemorrhage, risk of injury to adjacent organs including potential hysterectomy. risks discussed as well, including potential for permanent neurologic injury or . Overall uterine rupture risk is less than 1% after one section. Is a trial of labor contraindicated for this patient? No If no, calculate rate of success using pre-labor factors: http://www.[facility].edu/mfmu/vagbirth.html Predicted chance of vaginal after : 65% Patient's plan for delivery mode: Repeat , unless enters labor before schedule c/s and EFW same or less than previous delivery then would consider TOLAC Milagro Alonso MD Short interval between pregn ancies affecting , antepartum 02/21/2017 11/18/2017 Overview: 02/21/2017Patient delivered her previous child 04/01/2016. TKRN GBS (group B streptococcus) UTI complicating pre gnancy 10/02/2015 05/18/2016 Encounter for supervision of normal first in third trimester 08/26/2015 05/18/2016 Overview: Girl- Brynlee documented as of this encounter (statuses as of 06/12/2021) [facility] History of Past illness Narrative* Problem Noted Date Resolved Date Unplanned wanted 12/25/201803/21 Overview: 12/25/2018This is a surprise . Patient delivered her previous child 10/2017.TKRn with history of section, ante 12/25/2018 10/08/2019 Overview: 01/30/19- Patient was previously wanting repeat C/S but asking about TOLAC after 2 C/S. When asked if she desires PPTL she stated she does not want this done. Reviewed risks vs. Benefits of TOLAC after 2 C/S. Not a complete contraindication as she did not have TOLAC last due to size similar to first child. success rate 62%. Discussed with patient decreased possibility of successful due to history of first labor and CPD. First baby 8lb 9 oz and second baby 8lb 7oz. Discussed growth US at 39 weeks and await spontaneous labor till 40 weeks, would not recommend IOL. If baby size similar to other two children, would recommend repeat C/S. Patient is agreeable and reasonable to this option. Will discuss further with physicians. Patient still deciding on best plan for her.Aviva Barreto APRN.CNM 12/25/2018 Pt had 2 previous C sections. She desires a repeat C section by Dr Alonso.Considering PPTL. TRINIDAD on PPTL ordered. KRN Nausea and vomiting during 12/25/2018 11/28/2020 Overview: 12/25/2018Patient is complaining of nausea and occasional vomiting in . Dietary considerations discussed . Vitamin B6 recommended. Advised patient to call/come in if she is unable to keep any food or fluids down in a 24-hour period.TKRN Excessive growth affec ting management of in third trimester 10/06/2017 11/18/2017 History of delivery 02/21/2017 Overview: August 16, 2017 Plans tolac, agrees to epidural but would prefer not to have it dosed. TOLAC [facility] consent signed. Milagro Alonso MD 02/21/2017 Pt had a previous C section for CPD. She desires a repeat C section by Dr Alonso , but would like to discuss a possible with Dr Alonso. She will do this at NOB visit.TKRN Risks/benefits/alternatives discussed with patient regarding trial of labor and potential for uterine rupture. Risks include but are not limited to maternal hemorrhage, risk of injury to adjacent organs including potential hysterectomy. risks discussed as well, including potential for permanent neurologic injury or . Overall uterine rupture risk is less than 1% after one section. Is a trial of labor contraindicated for this patient? No If no, calculate rate of success using pre-labor factors: http://www.bs.[facility].edu/mfmu/vagbirth.html Predicted chance of vaginal after : 65% Patient's plan for delivery mode: Repeat , unless enters labor before schedule c/s and EFW same or less than previous delivery then would consider TOLAC Milagro Alonso MD Short interval between pregn ancies affecting , antepartum 02/21/2017 11/18/2017 Overview: 02/21/2017Patient delivered her previous child 04/01/2016. TKRN GBS (group B streptococcus) UTI complicating pre gnancy 10/02/2015 05/18/2016 Encounter for supervision of normal first in third trimester 08/26/2015 05/18/2016 Overview: Girl- Jesus documented as of this encounter (statuses as of 07/22/2021) [facility] History of Past illness Narrative* Problem Noted Date Resolved Date Unplanned wanted 12/25/201803/21 Overview: 12/25/2018This is a surprise . Patient delivered her previous child 10/2017.TKRn with history of section, ante 12/25/2018 10/08/2019 Overview: 01/30/19- Patient was previously wanting repeat C/S but asking about TOLAC after 2 C/S. When asked if she desires PPTL she stated she does not want this done. Reviewed risks vs. Benefits of TOLAC after 2 C/S. Not a complete contraindication as she did not have TOLAC last due to size similar to first child. success rate 62%. Discussed with patient decreased possibility of successful due to history of first labor and CPD. First baby 8lb 9 oz and second baby 8lb 7oz. Discussed growth US at 39 weeks and await spontaneous labor till 40 weeks, would not recommend IOL. If baby size similar to other two children, would recommend repeat C/S. Patient is agreeable and reasonable to this option. Will discuss further with physicians. Patient still deciding on best plan for her.Aviva Barreto APRN.AILEENM 12/25/2018 Pt had 2 previous C sections. She desires a repeat C section by Dr Alonso.Considering PPTL. TRINIDAD on PPTL ordered. KRN Nausea and vomiting during 12/25/2018 11/28/2020 Overview: 12/25/2018Patient is complaining of nausea and occasional vomiting in . Dietary considerations discussed . Vitamin B6 recommended. Advised patient to call/come in if she is unable to keep any food or fluids down in a 24-hour period.TKRN Excessive growth affec ting management of in third trimester 10/06/2017 11/18/2017 History of delivery 02/21/2017 Overview: August 16, 2017 Plans tolac, agrees to epidural but would prefer not to have it dosed. TOLAC [facility] consent signed. Milagro Alonso MD 02/21/2017 Pt had a previous C section for CPD. She desires a repeat C section by Dr Alonso , but would like to discuss a possible with Dr Alonso. She will do this at NOB visit.TKRN Risks/benefits/alternatives discussed with patient regarding trial of labor and potential for uterine rupture. Risks include but are not limited to maternal hemorrhage, risk of injury to adjacent organs including potential hysterectomy. risks discussed as well, including potential for permanent neurologic injury or . Overall uterine rupture risk is less than 1% after one section. Is a trial of labor contraindicated for this patient? No If no, calculate rate of success using pre-labor factors: http://www.bs.[facility]/mfmu/vagbirth.html Predicted chance of vaginal after : 65% Patient's plan for delivery mode: Repeat , unless enters labor before schedule c/s and EFW same or less than previous delivery then would consider TOLAC Milagro Alonso MD Short interval between pregn ancies affecting , antepartum 02/21/2017 11/18/2017 Overview: 02/21/2017Patient delivered her previous child 04/01/2016. TKRN GBS (group B streptococcus) UTI complicating pre gnancy 10/02/2015 05/18/2016 Encounter for supervision of normal first in third trimester 08/26/2015 05/18/2016 Overview: Girl- Brynlee documented as of this encounter (statuses as of 07/24/2021) [facility] of Past illness Narrative* Problem Noted Date Resolved Date Unplanned wanted 12/25/201803/21 Overview: 12/25/2018This is a surprise . Patient delivered her previous child 10/2017.TKRn with history of section, ante 12/25/2018 10/08/2019 Overview: 01/30/19- Patient was previously wanting repeat C/S but asking about TOLAC after 2 C/S. When asked if she desires PPTL she stated she does not want this done. Reviewed risks vs. Benefits of TOLAC after 2 C/S. Not a complete contraindication as she did not have TOLAC last due to size similar to first child. success rate 62%. Discussed with patient decreased possibility of successful due to history of first labor and CPD. First baby 8lb 9 oz and second baby 8lb 7oz. Discussed growth US at 39 weeks and await spontaneous labor till 40 weeks, would not recommend IOL. If baby size similar to other two children, would recommend repeat C/S. Patient is agreeable and reasonable to this option. Will discuss further with physicians. Patient still deciding on best plan for her.Aviva Barreto APRN.CNM 12/25/2018 Pt had 2 previous C sections. She desires a repeat C section by Dr Alonso.Considering PPTL. TRINIDAD on PPTL ordered. KRN Nausea and vomiting during 12/25/2018 11/28/2020 Overview: 12/25/2018Patient is complaining of nausea and occasional vomiting in . Dietary considerations discussed . Vitamin B6 recommended. Advised patient to call/come in if she is unable to keep any food or fluids down in a 24-hour period.TKRN Excessive growth affec ting management of in third trimester 10/06/2017 11/18/2017 History of delivery 02/21/2017 Overview: August 16, 2017 Plans tolac, agrees to epidural but would prefer not to have it dosed. TOLAC [facility] consent signed. Milagro Alonso MD 02/21/2017 Pt had a previous C section for CPD. She desires a repeat C section by Dr Alonso , but would like to discuss a possible with Dr Alonso. She will do this at NOB visit.TKRN Risks/benefits/alternatives discussed with patient regarding trial of labor and potential for uterine rupture. Risks include but are not limited to maternal hemorrhage, risk of injury to adjacent organs including potential hysterectomy. risks discussed as well, including potential for permanent neurologic injury or . Overall uterine rupture risk is less than 1% after one section. Is a trial of labor contraindicated for this patient? No If no, calculate rate of success using pre-labor factors: http://www.[facility].edu/mfmu/vagbirth.html Predicted chance of vaginal after : 65% Patient's plan for delivery mode: Repeat , unless enters labor before schedule c/s and EFW same or less than previous delivery then would consider TOLAC Milagro Alonso MD Short interval between pregn ancies affecting , antepartum 02/21/2017 11/18/2017 Overview: 02/21/2017Patient delivered her previous child 04/01/2016. TKRN GBS (group B streptococcus) UTI complicating pre gnancy 10/02/2015 05/18/2016 Encounter for supervision of normal first in third trimester 08/26/2015 05/18/2016 Overview: Girl- Brynlee documented as of this encounter (statuses as of 08/25/2021) [facility] History of Past illness Narrative* Problem Noted Date Resolved Date Unplanned wanted 12/25/201803/21 Overview: 12/25/2018This is a surprise . Patient delivered her previous child 10/2017.TKRn with history of section, ante 12/25/2018 10/08/2019 Overview: 01/30/19- Patient was previously wanting repeat C/S but asking about TOLAC after 2 C/S. When asked if she desires PPTL she stated she does not want this done. Reviewed risks vs. Benefits of TOLAC after 2 C/S. Not a complete contraindication as she did not have TOLAC last due to size similar to first child. success rate 62%. Discussed with patient decreased possibility of successful due to history of first labor and CPD. First baby 8lb 9 oz and second baby 8lb 7oz. Discussed growth US at 39 weeks and await spontaneous labor till 40 weeks, would not recommend IOL. If baby size similar to other two children, would recommend repeat C/S. Patient is agreeable and reasonable to this option. Will discuss further with physicians. Patient still deciding on best plan for her.Aviva Barreto APRN.CNM 12/25/2018 Pt had 2 previous C sections. She desires a repeat C section by Dr Alnoso.Considering PPTL. TRINIDAD on PPTL ordered. KRN Nausea and vomiting during 12/25/2018 11/28/2020 Overview: 12/25/2018Patient is complaining of nausea and occasional vomiting in . Dietary considerations discussed . Vitamin B6 recommended. Advised patient to call/come in if she is unable to keep any food or fluids down in a 24-hour period.TKRN Excessive growth affec ting management of in third trimester 10/06/2017 11/18/2017 History of delivery 02/21/2017 Overview: August 16, 2017 Plans tolac, agrees to epidural but would prefer not to have it dosed. TOLAC [facility] consent signed. Milagro Alonso MD 02/21/2017 Pt had a previous C section for CPD. She desires a repeat C section by Dr Alonso , but would like to discuss a possible with Dr Alonso. She will do this at NOB visit.TKRN Risks/benefits/alternatives discussed with patient regarding trial of labor and potential for uterine rupture. Risks include but are not limited to maternal hemorrhage, risk of injury to adjacent organs including potential hysterectomy. risks discussed as well, including potential for permanent neurologic injury or . Overall uterine rupture risk is less than 1% after one section. Is a trial of labor contraindicated for this patient? No If no, calculate rate of success using pre-labor factors: http://www.bs.[facility].edu/mfmu/vagbirth.html Predicted chance of vaginal after : 65% Patient's plan for delivery mode: Repeat , unless enters labor before schedule c/s and EFW same or less than previous delivery then would consider TOLAC Milagro Alonso MD Short interval between pregn ancies affecting , antepartum 02/21/2017 11/18/2017 Overview: 02/21/2017Patient delivered her previous child 04/01/2016. TKRN GBS (group B streptococcus) UTI complicating pre gnancy 10/02/2015 05/18/2016 Encounter for supervision of normal first in third trimester 08/26/2015 05/18/2016 Overview: Girl- Tanlee documented as of this encounter (statuses as of 10/28/2021) [facility] History of Past illness Narrative* Problem Noted Date Resolved Date Unplanned wanted 12/25/201803/21 Overview: 12/25/2018This is a surprise . Patient delivered her previous child 10/2017.TKRn with history of section, ante 12/25/2018 10/08/2019 Overview: 01/30/19- Patient was previously wanting repeat C/S but asking about TOLAC after 2 C/S. When asked if she desires PPTL she stated she does not want this done. Reviewed risks vs. Benefits of TOLAC after 2 C/S. Not a complete contraindication as she did not have TOLAC last due to size similar to first child. success rate 62%. Discussed with patient decreased possibility of successful due to history of first labor and CPD. First baby 8lb 9 oz and second baby 8lb 7oz. Discussed growth US at 39 weeks and await spontaneous labor till 40 weeks, would not recommend IOL. If baby size similar to other two children, would recommend repeat C/S. Patient is agreeable and reasonable to this option. Will discuss further with physicians. Patient still deciding on best plan for her.Aviva Barreto APRN.AILEENM 12/25/2018 Pt had 2 previous C sections. She desires a repeat C section by Dr Alonso.Considering PPTL. TRINIDAD on PPTL ordered. KESHIA Nausea and vomiting during 12/25/2018 11/28/2020 Overview: 12/25/2018Patient is complaining of nausea and occasional vomiting in . Dietary considerations discussed . Vitamin B6 recommended. Advised patient to call/come in if she is unable to keep any food or fluids down in a 24-hour period.TKRN Excessive growth affec ting management of in third trimester 10/06/2017 11/18/2017 History of delivery 02/21/2017 Overview: August 16, 2017 Plans tolac, agrees to epidural but would prefer not to have it dosed. TOLAC [facility] consent signed. Milagro Alonso MD 02/21/2017 Pt had a previous C section for CPD. She desires a repeat C section by Dr Alonso , but would like to discuss a possible with Dr Alonso. She will do this at NOB visit.TKRN Risks/benefits/alternatives discussed with patient regarding trial of labor and potential for uterine rupture. Risks include but are not limited to maternal hemorrhage, risk of injury to adjacent organs including potential hysterectomy. risks discussed as well, including potential for permanent neurologic injury or . Overall uterine rupture risk is less than 1% after one section. Is a trial of labor contraindicated for this patient? No If no, calculate rate of success using pre-labor factors: http://www.[facility].edu/mfmu/vagbirth.html Predicted chance of vaginal after : 65% Patient's plan for delivery mode: Repeat , unless enters labor before schedule c/s and EFW same or less than previous delivery then would consider TOLAC Milagro Alonso MD Short interval between pregn ancies affecting , antepartum 02/21/2017 11/18/2017 Overview: 02/21/2017Patient delivered her previous child 04/01/2016. TKRN GBS (group B streptococcus) UTI complicating pre gnancy 10/02/2015 05/18/2016 Encounter for supervision of normal first in third trimester 08/26/2015 05/18/2016 Overview: Girl- Brynlee documented as of this encounter (statuses as of 12/10/2021) [facility] History of Past illness Narrative* Problem Noted Date Resolved Date Unplanned wanted 12/25/201803/21 Overview: 12/25/2018This is a surprise . Patient delivered her previous child 10/2017.TKRn with history of section, ante 12/25/2018 10/08/2019 Overview: 01/30/19- Patient was previously wanting repeat C/S but asking about TOLAC after 2 C/S. When asked if she desires PPTL she stated she does not want this done. Reviewed risks vs. Benefits of TOLAC after 2 C/S. Not a complete contraindication as she did not have TOLAC last due to size similar to first child. success rate 62%. Discussed with patient decreased possibility of successful due to history of first labor and CPD. First baby 8lb 9 oz and second baby 8lb 7oz. Discussed growth US at 39 weeks and await spontaneous labor till 40 weeks, would not recommend IOL. If baby size similar to other two children, would recommend repeat C/S. Patient is agreeable and reasonable to this option. Will discuss further with physicians. Patient still deciding on best plan for her.Aviva Barreto APRN.CNM 12/25/2018 Pt had 2 previous C sections. She desires a repeat C section by Dr Alonso.Considering PPTL. TRINIDAD on PPTL ordered. KRN Nausea and vomiting during 12/25/2018 11/28/2020 Overview: 12/25/2018Patient is complaining of nausea and occasional vomiting in . Dietary considerations discussed . Vitamin B6 recommended. Advised patient to call/come in if she is unable to keep any food or fluids down in a 24-hour period.TKRN Excessive growth affec ting management of in third trimester 10/06/2017 11/18/2017 History of delivery 02/21/2017 Overview: August 16, 2017 Plans tolac, agrees to epidural but would prefer not to have it dosed. TOLAC [facility] consent signed. Milagro Alonso MD 02/21/2017 Pt had a previous C section for CPD. She desires a repeat C section by Dr Alonso , but would like to discuss a possible with Dr Alonso. She will do this at NOB visit.TKRN Risks/benefits/alternatives discussed with patient regarding trial of labor and potential for uterine rupture. Risks include but are not limited to maternal hemorrhage, risk of injury to adjacent organs including potential hysterectomy. risks discussed as well, including potential for permanent neurologic injury or . Overall uterine rupture risk is less than 1% after one section. Is a trial of labor contraindicated for this patient? No If no, calculate rate of success using pre-labor factors: http://www.bs.[facility]/mfmu/vagbirth.html Predicted chance of vaginal after : 65% Patient's plan for delivery mode: Repeat , unless enters labor before schedule c/s and EFW same or less than previous delivery then would consider TOLAC Milagro Alonso MD Short interval between pregn ancies affecting , antepartum 02/21/2017 11/18/2017 Overview: 02/21/2017Patient delivered her previous child 04/01/2016. TKRN GBS (group B streptococcus) UTI complicating pre gnancy 10/02/2015 05/18/2016 Encounter for supervision of normal first in third trimester 08/26/2015 05/18/2016 Overview: Girl- Brynlee documented as of this encounter (statuses as of 01/27/2022) [facility] History of Past illness Narrative* Problem Noted Date Resolved Date Unplanned wanted 12/25/201803/21 Overview: 12/25/2018This is a surprise . Patient delivered her previous child 10/2017.TKRn with history of section, ante 12/25/2018 10/08/2019 Overview: 01/30/19- Patient was previously wanting repeat C/S but asking about TOLAC after 2 C/S. When asked if she desires PPTL she stated she does not want this done. Reviewed risks vs. Benefits of TOLAC after 2 C/S. Not a complete contraindication as she did not have TOLAC last due to size similar to first child. success rate 62%. Discussed with patient decreased possibility of successful due to history of first labor and CPD. First baby 8lb 9 oz and second baby 8lb 7oz. Discussed growth US at 39 weeks and await spontaneous labor till 40 weeks, would not recommend IOL. If baby size similar to other two children, would recommend repeat C/S. Patient is agreeable and reasonable to this option. Will discuss further with physicians. Patient still deciding on best plan for her.Aviva Barreto APRN.CNM 12/25/2018 Pt had 2 previous C sections. She desires a repeat C section by Dr Alonso.Considering PPTL. TRINIDAD on PPTL ordered. KRN Nausea and vomiting during 12/25/2018 11/28/2020 Overview: 12/25/2018Patient is complaining of nausea and occasional vomiting in . Dietary considerations discussed . Vitamin B6 recommended. Advised patient to call/come in if she is unable to keep any food or fluids down in a 24-hour period.TKRN Excessive growth affec ting management of in third trimester 10/06/2017 11/18/2017 History of delivery 02/21/2017 Overview: August 16, 2017 Plans tolac, agrees to epidural but would prefer not to have it dosed. TOLAC [facility] consent signed. Milagro Alonso MD 02/21/2017 Pt had a previous C section for CPD. She desires a repeat C section by Dr Alonso , but would like to discuss a possible with Dr Alonso. She will do this at NOB visit.TKRN Risks/benefits/alternatives discussed with patient regarding trial of labor and potential for uterine rupture. Risks include but are not limited to maternal hemorrhage, risk of injury to adjacent organs including potential hysterectomy. risks discussed as well, including potential for permanent neurologic injury or . Overall uterine rupture risk is less than 1% after one section. Is a trial of labor contraindicated for this patient? No If no, calculate rate of success using pre-labor factors: http://www.[facility].edu/mfmu/vagbirth.html Predicted chance of vaginal after : 65% Patient's plan for delivery mode: Repeat , unless enters labor before schedule c/s and EFW same or less than previous delivery then would consider TOLAC Milagro Alonso MD Short interval between pregn ancies affecting , antepartum 02/21/2017 11/18/2017 Overview: 02/21/2017Patient delivered her previous child 04/01/2016. TKRN GBS (group B streptococcus) UTI complicating pre gnancy 10/02/2015 05/18/2016 Encounter for supervision of normal first in third trimester 08/26/2015 05/18/2016 Overview: Girl- Brynlee documented as of this encounter (statuses as of 01/27/2022) [facility] History of Past illness Narrative* Problem Noted Date Resolved Date Unplanned wanted 12/25/201803/21 Overview: 12/25/2018This is a surprise . Patient delivered her previous child 10/2017.TKRn with history of section, ante 12/25/2018 10/08/2019 Overview: 01/30/19- Patient was previously wanting repeat C/S but asking about TOLAC after 2 C/S. When asked if she desires PPTL she stated she does not want this done. Reviewed risks vs. Benefits of TOLAC after 2 C/S. Not a complete contraindication as she did not have TOLAC last due to size similar to first child. success rate 62%. Discussed with patient decreased possibility of successful due to history of first labor and CPD. First baby 8lb 9 oz and second baby 8lb 7oz. Discussed growth US at 39 weeks and await spontaneous labor till 40 weeks, would not recommend IOL. If baby size similar to other two children, would recommend repeat C/S. Patient is agreeable and reasonable to this option. Will discuss further with physicians. Patient still deciding on best plan for her.Aviva Barreto APRN.CNM 12/25/2018 Pt had 2 previous C sections. She desires a repeat C section by Dr Alonso.Considering PPTL. TRINIDAD on PPTL ordered. KRN Nausea and vomiting during 12/25/2018 11/28/2020 Overview: 12/25/2018Patient is complaining of nausea and occasional vomiting in . Dietary considerations discussed . Vitamin B6 recommended. Advised patient to call/come in if she is unable to keep any food or fluids down in a 24-hour period.TKRN Excessive growth affec ting management of in third trimester 10/06/2017 11/18/2017 History of delivery 02/21/2017 Overview: August 16, 2017 Plans tolac, agrees to epidural but would prefer not to have it dosed. TOLAC [facility] consent signed. Milagro Alonso MD 02/21/2017 Pt had a previous C section for CPD. She desires a repeat C section by Dr Alonso , but would like to discuss a possible with Dr Alonso. She will do this at NOB visit.TKRN Risks/benefits/alternatives discussed with patient regarding trial of labor and potential for uterine rupture. Risks include but are not limited to maternal hemorrhage, risk of injury to adjacent organs including potential hysterectomy. risks discussed as well, including potential for permanent neurologic injury or . Overall uterine rupture risk is less than 1% after one section. Is a trial of labor contraindicated for this patient? No If no, calculate rate of success using pre-labor factors: http://www.[facility]sc[facility].edu/mfmu/vagbirth.html Predicted chance of vaginal after : 65% Patient's plan for delivery mode: Repeat , unless enters labor before schedule c/s and EFW same or less than previous delivery then would consider TOLAC Milagro Alonso MD Short interval between pregn ancies affecting , antepartum 02/21/2017 11/18/2017 Overview: 02/21/2017Patient delivered her previous child 04/01/2016. TKRN GBS (group B streptococcus) UTI complicating pre gnancy 10/02/2015 05/18/2016 Encounter for supervision of normal first in third trimester 08/26/2015 05/18/2016 Overview: Girl- Brynlee documented as of this encounter (statuses as of 04/29/2022) [facility] History of Past illness Narrative* Problem Noted Date Resolved Date Unplanned wanted 12/25/201803/21 Overview: 12/25/2018This is a surprise . Patient delivered her previous child 10/2017.TKRn with history of section, ante 12/25/2018 10/08/2019 Overview: 01/30/19- Patient was previously wanting repeat C/S but asking about TOLAC after 2 C/S. When asked if she desires PPTL she stated she does not want this done. Reviewed risks vs. Benefits of TOLAC after 2 C/S. Not a complete contraindication as she did not have TOLAC last due to size similar to first child. success rate 62%. Discussed with patient decreased possibility of successful due to history of first labor and CPD. First baby 8lb 9 oz and second baby 8lb 7oz. Discussed growth US at 39 weeks and await spontaneous labor till 40 weeks, would not recommend IOL. If baby size similar to other two children, would recommend repeat C/S. Patient is agreeable and reasonable to this option. Will discuss further with physicians. Patient still deciding on best plan for her.Aviva Barreto APRN.CNM 12/25/2018 Pt had 2 previous C sections. She desires a repeat C section by Dr Alonso.Considering PPTL. TRINIDAD on PPTL ordered. KRN Nausea and vomiting during 12/25/2018 11/28/2020 Overview: 12/25/2018Patient is complaining of nausea and occasional vomiting in . Dietary considerations discussed . Vitamin B6 recommended. Advised patient to call/come in if she is unable to keep any food or fluids down in a 24-hour period.TKRN Excessive growth affec ting management of in third trimester 10/06/2017 11/18/2017 History of delivery 02/21/2017 Overview: August 16, 2017 Plans tolac, agrees to epidural but would prefer not to have it dosed. TOLAC [facility] consent signed. Milagro Alonso MD 02/21/2017 Pt had a previous C section for CPD. She desires a repeat C section by Dr Alonso , but would like to discuss a possible with Dr Alonso. She will do this at NOB visit.TKRN Risks/benefits/alternatives discussed with patient regarding trial of labor and potential for uterine rupture. Risks include but are not limited to maternal hemorrhage, risk of injury to adjacent organs including potential hysterectomy. risks discussed as well, including potential for permanent neurologic injury or . Overall uterine rupture risk is less than 1% after one section. Is a trial of labor contraindicated for this patient? No If no, calculate rate of success using pre-labor factors: http://www.bs.[facility].edu/mfmu/vagbirth.html Predicted chance of vaginal after : 65% Patient's plan for delivery mode: Repeat , unless enters labor before schedule c/s and EFW same or less than previous delivery then would consider TOLAC Milagro Alonso MD Short interval between pregn ancies affecting , antepartum 02/21/2017 11/18/2017 Overview: 02/21/2017Patient delivered her previous child 04/01/2016. TKRN GBS (group B streptococcus) UTI complicating pre gnancy 10/02/2015 05/18/2016 Encounter for supervision of normal first in third trimester 08/26/2015 05/18/2016 Overview: Girl- Brynlee documented as of this encounter (statuses as of 08/04/2022) [facility] History of Past illness Narrative* Problem Noted Date Resolved Date Unplanned wanted 12/25/201803/21 Overview: 12/25/2018This is a surprise . Patient delivered her previous child 10/2017.TKRn with history of section, ante 12/25/2018 10/08/2019 Overview: 01/30/19- Patient was previously wanting repeat C/S but asking about TOLAC after 2 C/S. When asked if she desires PPTL she stated she does not want this done. Reviewed risks vs. Benefits of TOLAC after 2 C/S. Not a complete contraindication as she did not have TOLAC last due to size similar to first child. success rate 62%. Discussed with patient decreased possibility of successful due to history of first labor and CPD. First baby 8lb 9 oz and second baby 8lb 7oz. Discussed growth US at 39 weeks and await spontaneous labor till 40 weeks, would not recommend IOL. If baby size similar to other two children, would recommend repeat C/S. Patient is agreeable and reasonable to this option. Will discuss further with physicians. Patient still deciding on best plan for her.Aviva Barreto APRN.CNM 12/25/2018 Pt had 2 previous C sections. She desires a repeat C section by Dr Alonso.Considering PPTL. TRINIDAD on PPTL ordered. KRN Nausea and vomiting during 12/25/2018 11/28/2020 Overview: 12/25/2018Patient is complaining of nausea and occasional vomiting in . Dietary considerations discussed . Vitamin B6 recommended. Advised patient to call/come in if she is unable to keep any food or fluids down in a 24-hour period.TKRN Excessive growth affec ting management of in third trimester 10/06/2017 11/18/2017 History of delivery 02/21/2017 Overview: August 16, 2017 Plans tolac, agrees to epidural but would prefer not to have it dosed. TOLAC [facility] consent signed. Milagro Alonso MD 02/21/2017 Pt had a previous C section for CPD. She desires a repeat C section by Dr Alonso , but would like to discuss a possible with Dr Alonso. She will do this at NOB visit.TKRN Risks/benefits/alternatives discussed with patient regarding trial of labor and potential for uterine rupture. Risks include but are not limited to maternal hemorrhage, risk of injury to adjacent organs including potential hysterectomy. risks discussed as well, including potential for permanent neurologic injury or . Overall uterine rupture risk is less than 1% after one section. Is a trial of labor contraindicated for this patient? No If no, calculate rate of success using pre-labor factors: http://www.bsc.[facility]/mfmu/vagbirth.html Predicted chance of vaginal after : 65% Patient's plan for delivery mode: Repeat , unless enters labor before schedule c/s and EFW same or less than previous delivery then would consider TOLAC Milagro Alonso MD Short interval between pregn ancies affecting , antepartum 02/21/2017 11/18/2017 Overview: 02/21/2017Patient delivered her previous child 04/01/2016. TKRN GBS (group B streptococcus) UTI complicating pre gnancy 10/02/2015 05/18/2016 Encounter for supervision of normal first in third trimester 08/26/2015 05/18/2016 Overview: Girl- Brynlee documented as of this encounter (statuses as of 09/08/2022) [facility] History of Past illness Narrative* Problem Noted Date Diagnosed Date Resolved Date Unplanned wanted 12/25/2018 0 03/21/2019 Overview: 12/25/2018This is a surprise . Patient delivered her previous child 10/2017.TKRn with history of ce sarean section, antepartum 12/25/2018 10/08/2019 Overview: 01/30/19- Patient was previously wanting repeat C/S but asking about TOLAC after 2 C/S. When asked if she desires PPTL she stated she does not want this done. Reviewed risks vs. Benefits of TOLAC after 2 C/S. Not a complete contraindication as she did not have TOLAC last due to size similar to first child. success rate 62%. Discussed with patient decreased possibility of successful due to history of first labor and CPD. First baby 8lb 9 oz and second baby 8lb 7oz. Discussed growth US at 39 weeks and await spontaneous labor till 40 weeks, would not recommend IOL. If baby size similar to other two children, would recommend repeat C/S. Patient is agreeable and reasonable to this option. Will discuss further with physicians. Patient still deciding on best plan for her.Aviva Barreto APRN.ROSSANA 12/25/2018 Pt had 2 previous C sections. She desires a repeat C section by Dr Alonso.Considering PPTL. TRINIDAD on PPTL ordered. KRN Nausea and vomiting during 12/25/2018 11/28/2020 Overview: 12/25/2018Patient is complaining of nausea and occasional vomiting in . Dietary considerations discussed . Vitamin B6 recommended. Advised patient to call/come in if she is unable to keep any food or fluids down in a 24-hour period.TKRN Excessive growth affec ting management of in third trimester 10/06/2017 11/19/19 History of delivery 02/21/2017 11/18/2017 Overview: August 16, 2017 Plans tolac, agrees to epidural but would prefer not to have it dosed. TOLAC [facility] consent signed. Milagro Alonso MD 02/21/2017 Pt had a previous C section for CPD. She desires a repeat C section by Dr Alonso , but would like to discuss a possible with Dr Alonso. She will do this at NOB visit.TKRN Risks/benefits/alternatives discussed with patient regarding trial of labor and potential for uterine rupture. Risks include but are not limited to maternal hemorrhage, risk of injury to adjacent organs including potential hysterectomy. risks discussed as well, including potential for permanent neurologic injury or . Overall uterine rupture risk is less than 1% after one section. Is a trial of labor contraindicated for this patient? No If no, calculate rate of success using pre-labor factors: http://www.[facility].edu/mfmu/vagbirth.html Predicted chance of vaginal after : 65% Patient's plan for delivery mode: Repeat , unless enters labor before schedule c/s and EFW same or less than previous delivery then would consider TOLAC Milagro Alonso MD Short interval between pregn ancies affecting , antepartum 02/21/2017 11/18/2017 Overview: 02/21/2017Patient delivered her previous child 04/01/2016. TKRN GBS (group B streptococcus) UTI complicating 10/02/2015 05/18/2016 Encounter for supervision of normal first in third trimester 08/26/2015 05/18/2016 Overview: Girl- Tanlwendi documented as of this encounter (statuses as of 11/24/2022) [facility] History of Past illness Narrative* Problem Noted Date Diagnosed Date Resolved Date Unplanned wanted 12/25/2018 0 03/21/2019 Overview: 12/25/2018This is a surprise . Patient delivered her previous child 10/2017.TKRn with history of ce sarean section, antepartum 12/25/2018 10/08/2019 Overview: 01/30/19- Patient was previously wanting repeat C/S but asking about TOLAC after 2 C/S. When asked if she desires PPTL she stated she does not want this done. Reviewed risks vs. Benefits of TOLAC after 2 C/S. Not a complete contraindication as she did not have TOLAC last due to size similar to first child. success rate 62%. Discussed with patient decreased possibility of successful due to history of first labor and CPD. First baby 8lb 9 oz and second baby 8lb 7oz. Discussed growth US at 39 weeks and await spontaneous labor till 40 weeks, would not recommend IOL. If baby size similar to other two children, would recommend repeat C/S. Patient is agreeable and reasonable to this option. Will discuss further with physicians. Patient still deciding on best plan for her.Aviva Barreto APRN.ROSSANA 12/25/2018 Pt had 2 previous C sections. She desires a repeat C section by Dr Alonso.Considering PPTL. TRINIDAD on PPTL ordered. KRN Nausea and vomiting during 12/25/2018 11/28/2020 Overview: 12/25/2018Patient is complaining of nausea and occasional vomiting in . Dietary considerations discussed . Vitamin B6 recommended. Advised patient to call/come in if she is unable to keep any food or fluids down in a 24-hour period.TKRN Excessive growth affec ting management of in third trimester 10/06/2017 11/19/19 18 History of delivery 02/21/2017 11/18/2017 Overview: August 16, 2017 Plans tolac, agrees to epidural but would prefer not to have it dosed. TOLAC [facility] consent signed. Milagro Alonso MD 02/21/2017 Pt had a previous C section for CPD. She desires a repeat C section by Dr Alonso , but would like to discuss a possible with Dr Alonso. She will do this at NOB visit.TKRN Risks/benefits/alternatives discussed with patient regarding trial of labor and potential for uterine rupture. Risks include but are not limited to maternal hemorrhage, risk of injury to adjacent organs including potential hysterectomy. risks discussed as well, including potential for permanent neurologic injury or . Overall uterine rupture risk is less than 1% after one section. Is a trial of labor contraindicated for this patient? No If no, calculate rate of success using pre-labor factors: http://www.[facility] [place] [place].[facility].edu/mfmu/vagbirth.html Predicted chance of vaginal after : 65% Patient's plan for delivery mode: Repeat , unless enters labor before schedule c/s and EFW same or less than previous delivery then would consider TOLAC Milagro Alonso MD Short interval between pregn ancies affecting , antepartum 02/21/2017 11/18/2017 Overview: 02/21/2017Patient delivered her previous child 04/01/2016. TKRN GBS (group B streptococcus) UTI complicating 10/02/2015 05/18/2016 Encounter for supervision of normal first in third trimester 08/26/2015 05/18/2016 Overview: Girl- Brynlee documented as of this encounter (statuses as of 12/15/2022) [facility] History of Past illness Narrative* Problem Noted Date Diagnosed Date Resolved Date Unplanned wanted 12/25/2018 0 03/21/2019 Overview: 12/25/2018This is a surprise . Patient delivered her previous child 10/2017.TKRn with history of ce sarean section, antepartum 12/25/2018 10/08/2019 Overview: 01/30/19- Patient was previously wanting repeat C/S but asking about TOLAC after 2 C/S. When asked if she desires PPTL she stated she does not want this done. Reviewed risks vs. Benefits of TOLAC after 2 C/S. Not a complete contraindication as she did not have TOLAC last due to size similar to first child. success rate 62%. Discussed with patient decreased possibility of successful due to history of first labor and CPD. First baby 8lb 9 oz and second baby 8lb 7oz. Discussed growth US at 39 weeks and await spontaneous labor till 40 weeks, would not recommend IOL. If baby size similar to other two children, would recommend repeat C/S. Patient is agreeable and reasonable to this option. Will discuss further with physicians. Patient still deciding on best plan for her.Aviva Barreto APRN.CNM 12/25/2018 Pt had 2 previous C sections. She desires a repeat C section by Dr Alonso.Considering PPTL. TRINIDAD on PPTL ordered. KRN Nausea and vomiting during 12/25/2018 11/28/2020 Overview: 12/25/2018Patient is complaining of nausea and occasional vomiting in . Dietary considerations discussed . Vitamin B6 recommended. Advised patient to call/come in if she is unable to keep any food or fluids down in a 24-hour period.TKRN Excessive growth affec ting management of in third trimester 10/06/2017 11/19/19 18 History of delivery 02/21/2017 11/18/2017 Overview: August 16, 2017 Plans tolac, agrees to epidural but would prefer not to have it dosed. TOLAC [facility] consent signed. Milagro Alonso MD 02/21/2017 Pt had a previous C section for CPD. She desires a repeat C section by Dr Alonso , but would like to discuss a possible with Dr Alonso. She will do this at NOB visit.TKRN Risks/benefits/alternatives discussed with patient regarding trial of labor and potential for uterine rupture. Risks include but are not limited to maternal hemorrhage, risk of injury to adjacent organs including potential hysterectomy. risks discussed as well, including potential for permanent neurologic injury or . Overall uterine rupture risk is less than 1% after one section. Is a trial of labor contraindicated for this patient? No If no, calculate rate of success using pre-labor factors: http://www.[facility]/mfmu/vagbirth.html Predicted chance of vaginal after : 65% Patient's plan for delivery mode: Repeat , unless enters labor before schedule c/s and EFW same or less than previous delivery then would consider TOLAC Milagro Alonso MD Short interval between pregn ancies affecting , antepartum 02/21/2017 11/18/2017 Overview: 02/21/2017Patient delivered her previous child 04/01/2016. TKRN GBS (group B streptococcus) UTI complicating 10/02/2015 05/18/2016 Encounter for supervision of normal first in third trimester 08/26/2015 05/18/2016 Overview: Girl- Brynlee documented as of this encounter (statuses as of 01/18/2023) [facility] History of Past illness Narrative* Problem Noted Date Diagnosed Date Resolved Date Unplanned wanted 12/25/2018 0 03/21/2019 Overview: 12/25/2018This is a surprise . Patient delivered her previous child 10/2017.TKRn with history of ce sarean section, antepartum 12/25/2018 10/08/2019 Overview: 01/30/19- Patient was previously wanting repeat C/S but asking about TOLAC after 2 C/S. When asked if she desires PPTL she stated she does not want this done. Reviewed risks vs. Benefits of TOLAC after 2 C/S. Not a complete contraindication as she did not have TOLAC last due to size similar to first child. success rate 62%. Discussed with patient decreased possibility of successful due to history of first labor and CPD. First baby 8lb 9 oz and second baby 8lb 7oz. Discussed growth US at 39 weeks and await spontaneous labor till 40 weeks, would not recommend IOL. If baby size similar to other two children, would recommend repeat C/S. Patient is agreeable and reasonable to this option. Will discuss further with physicians. Patient still deciding on best plan for her.Aviva Brareto APRN.CNM 12/25/2018 Pt had 2 previous C sections. She desires a repeat C section by Dr Alonso.Considering PPTL. TRINIDAD on PPTL ordered. KRN Nausea and vomiting during 12/25/2018 11/28/2020 Overview: 12/25/2018Patient is complaining of nausea and occasional vomiting in . Dietary considerations discussed . Vitamin B6 recommended. Advised patient to call/come in if she is unable to keep any food or fluids down in a 24-hour period.TKRN Excessive growth affec ting management of in third trimester 10/06/2017 11/19/19 History of delivery 02/21/2017 11/18/2017 Overview: August 16, 2017 Plans tolac, agrees to epidural but would prefer not to have it dosed. TOLAC [facility] consent signed. Milagro Alonso MD 02/21/2017 Pt had a previous C section for CPD. She desires a repeat C section by Dr Alonso , but would like to discuss a possible with Dr Alonso. She will do this at NOB visit.TKRN Risks/benefits/alternatives discussed with patient regarding trial of labor and potential for uterine rupture. Risks include but are not limited to maternal hemorrhage, risk of injury to adjacent organs including potential hysterectomy. risks discussed as well, including potential for permanent neurologic injury or . Overall uterine rupture risk is less than 1% after one section. Is a trial of labor contraindicated for this patient? No If no, calculate rate of success using pre-labor factors: http://www.[facility].edu/mfmu/vagbirth.html Predicted chance of vaginal after : 65% Patient's plan for delivery mode: Repeat , unless enters labor before schedule c/s and EFW same or less than previous delivery then would consider TOLAC Milagro Alonso MD Short interval between pregn ancies affecting , antepartum 02/21/2017 11/18/2017 Overview: 02/21/2017Patient delivered her previous child 04/01/2016. TKRN GBS (group B streptococcus) UTI complicating 10/02/2015 05/18/2016 Encounter for supervision of normal first in third trimester 08/26/2015 05/18/2016 Overview: Girl- Brynlee documented as of this encounter (statuses as of 02/02/2023) [facility] complaint Narrative - Reportedparesthesias, scleritis, abnormal MRI brain evaluation.[id number] Work Phone: [place] complaint Narrative - Reported* An interactive audio and video telecommunication system which permits real time communications between the patient (at the originating site) and provider (at the distant site) was utilized to providethis telehealth service. * Patient s/Guardian s identity confirmed by valid photo ID. * [facility] Work Phone: [place] complaint Narrative - Reported* An interactive audio and video telecommunication system which permits real time communications between the patient (at the originating site) and provider (at the distant site) was utilized to providethis telehealth service. * Patient s/Guardian s identity confirmed by valid photo ID. * [facility] Work Phone: Evaluation note* Diagnosis Paresthesias- Primary Disturbance of skin sensation Blurred vision, bilateral Other specified visual disturbances Fatigue, unspecified type Elevated cortisol level Other corticoadrenal overactivity Costochondral chest pain Painful respiration Paresthesia of skin Disturbance of skin sensation [facility] Diagnosis Abnormal finding on MRI of brain- Primary Nonspecific (abnormal) findings on radiological and other examination of skull and head Paresthesias Disturbance of skin sensation Blurred vision, bilateral Other specified visual disturbances Fatigue, unspecified type [facility]* Diagnosis Situational anxiety Other anxiety states [facility] Diagnosis Situational anxiety Other anxiety states [facility] Diagnosis Menorrhagia with regular cycle- Primary Excessive or frequent menstruation [facility] Diagnosis Situational anxiety Other anxiety states [facility] Situational anxiety Other anxiety states [facility] Situational anxiety Other anxiety states [facility] Diagnosis Neck pain- Primary Cervicalgia Somatic dysfunction of head region Somatic dysfunction of spine, cervical Nonallopathic lesion of cervical region, not elsewhere classified Somatic dysfunction of spine, thoracic Nonallopathic lesion of thoracic region, not elsewhere classified Somatic dysfunction of pelvic region Nonallopathic lesion of pelvic region, not elsewhere classified Somatic dysfunction of rib [facility] NarrativePatient is here for follow- up for pelvic pain and progressively heavier menses. Patient had ultrasound done and [facility] Work Phone: History of Present illness Narrative* Ms Garcia is a 31-year-old woman with no significant medical history who is presenting for telephone follow-up of chest pain. * In last visit patient reported having over the last 3 to 4 months intermittent stabbing-like chest pain that is unrelated to exertion, diet or position. Reports pain occurs a few times a week every other month, that can last from a few minutes to hours, and is of mild to moderate intensity. Patientdoes not recognize any exacerbating or alleviating factors. She is a mother of three and is really active and denies any chest pain with exertion. [id number] Work Phone: Summary Purpose Family History No Family History Records Found Grandmother Name Dates Details Family history of malignant neoplasm of colon(V16.0, Z80.0) Status:Active Family history of osteoporos is(V17.81, Z82.62) Status:Active Grandfather Name Dates Details Family history of cardiac di sorder(V17.49, Z82.49) Status:Active uncle Name Dates Details Family history of cardiac di sorder(V17.49, Z82.49) Status:Active Unknown Family Member Name Dates Details Family history of malignant neoplasm of colon: Grandmother(V16.0, Z80.0) Status:Active Family history of osteoporos is: Grandmother(V17.81, Z82.62) Status:Active Family history of cardiac di sorder: Grandfather, Uncle(V17.49, Z82.49) Status:Active Family history of bicuspid a ortic valve: Son(V17.49, Z82.79) Status:Active Unknown Family Member Name Dates Details Family history of malignant neoplasm of colon: Grandmother(V16.0, Z80.0) Status:Active Family history of osteoporos is: Grandmother(V17.81, Z82.62) Status:Active Family history of cardiac di sorder: Grandfather, Uncle(V17.49, Z82.49) Status:Active Family history of bicuspid a ortic valve: Son(V17.49, Z82.79) Status:Active Unknown Family Member Name Dates Details Family history of malignant neoplasm of colon: Grandmother(V16.0, Z80.0) Status:Active Family history of osteoporos is: Grandmother(V17.81, Z82.62) Status:Active Family history of cardiac di sorder: Grandfather, Uncle(V17.49, Z82.49) Status:Active Family history of bicuspid a ortic valve: Son(V17.49, Z82.79) Status:Active Unknown Family Member Name Dates Details Family history of malignant neoplasm of colon: Grandmother(V16.0, Z80.0) Status:Active Family history of osteoporos is: Grandmother(V17.81, Z82.62) Status:Active Family history of cardiac di sorder: Grandfather, Uncle(V17.49, Z82.49) Status:Active Family history of bicuspid a ortic valve: Son(V17.49, Z82.79) Status:Active Unknown Family Member Name Dates Details Family history of malignant neoplasm of colon: Grandmother(V16.0, Z80.0) Status:Active Family history of bicuspid a ortic valve: Son(V17.49, Z82.79) Status:Active Family history of osteoporos is: Grandmother, Maternal Grandmother(V17.81, Z82.62) Status:Active Family history of cardiac di sorder: Grandfather, Uncle, Paternal Grandmother, Maternal Grandfather(V17.49, Z82.49) Status:Active Family history of bleeding d isorder: Maternal Grandmother(V18.3, Z83.2) Status:Active Irregular heart beat: Elenon al Grandmother Status:Active Family history of myocardial infarction: Maternal Grandfather(V17.3, Z82.49) Status:Active Unknown Family Member Name Dates Details Family history of malignant neoplasm of colon: Grandmother(V16.0, Z80.0) Status:Active Family history of bicuspid a ortic valve: Son(V17.49, Z82.79) Status:Active Family history of osteoporos is: Grandmother, Maternal Grandmother(V17.81, Z82.62) Status:Active Family history of cardiac di sorder: Grandfather, Uncle, Paternal Grandmother, Maternal Grandfather(V17.49, Z82.49) Status:Active Family history of bleeding d isorder: Maternal Grandmother(V18.3, Z83.2) Status:Active Irregular heart beat: Elenon al Grandmother Status:Active Family history of myocardial infarction: Maternal Grandfather(V17.3, Z82.49) Status:Active Unknown Family Member Name Dates Details Family history of malignant neoplasm of colon: Grandmother(V16.0, Z80.0) Status:Active Family history of bicuspid a ortic valve: Son(V17.49, Z82.79) Status:Active Family history of osteoporos is: Grandmother, Maternal Grandmother(V17.81, Z82.62) Status:Active Family history of cardiac di sorder: Grandfather, Uncle, Paternal Grandmother, Maternal Grandfather(V17.49, Z82.49) Status:Active Family history of bleeding d isorder: Maternal Grandmother(V18.3, Z83.2) Status:Active Irregular heart beat: Elenon al Grandmother Status:Active Family history of myocardial infarction: Maternal Grandfather(V17.3, Z82.49) Status:Active Unknown Family Member Name Dates Details Family history of malignant neoplasm of colon: Grandmother(V16.0, Z80.0) Status:Active Family history of bicuspid a ortic valve: Son(V17.49, Z82.79) Status:Active Family history of osteoporos is: Grandmother, Maternal Grandmother(V17.81, Z82.62) Status:Active Family history of cardiac di sorder: Grandfather, Uncle, Paternal Grandmother, Maternal Grandfather(V17.49, Z82.49) Status:Active Family history of bleeding d isorder: Maternal Grandmother(V18.3, Z83.2) Status:Active Irregular heart beat: Lulu agustin Grandmother Status:Active Family history of myocardial infarction: Maternal Grandfather(V17.3, Z82.49) Status:Active Unknown Family Member Name Dates Details Family history of malignant neoplasm of colon: Grandmother(V16.0, Z80.0) Status:Active Family history of bicuspid a ortic valve: Son(V17.49, Z82.79) Status:Active Family history of osteoporos is: Grandmother, Maternal Grandmother(V17.81, Z82.62) Status:Active Family history of cardiac di sorder: Grandfather, Uncle, Paternal Grandmother, Maternal Grandfather(V17.49, Z82.49) Status:Active Family history of bleeding d isorder: Maternal Grandmother(V18.3, Z83.2) Status:Active Irregular heart beat: Elenon al Grandmother Status:Active Family history of myocardial infarction: Maternal Grandfather(V17.3, Z82.49) Status:Active Unknown Family Member Name Dates Details Family history of malignant neoplasm of colon: Grandmother(V16.0, Z80.0) Status:Active Family history of bicuspid a ortic valve: Son(V17.49, Z82.79) Status:Active Family history of osteoporos is: Grandmother, Maternal Grandmother(V17.81, Z82.62) Status:Active Family history of cardiac di sorder: Grandfather, Uncle, Paternal Grandmother, Maternal Grandfather(V17.49, Z82.49) Status:Active Family history of bleeding d isorder: Maternal Grandmother(V18.3, Z83.2) Status:Active Irregular heart beat: Elenon al Grandmother Status:Active Family history of myocardial infarction: Maternal Grandfather(V17.3, Z82.49) Status:Active Unknown Family Member Name Dates Details Family history of malignant neoplasm of colon: Grandmother(V16.0, Z80.0) Status:Active Family history of bicuspid a ortic valve: Son(V17.49, Z82.79) Status:Active Family history of osteoporos is: Grandmother, Maternal Grandmother(V17.81, Z82.62) Status:Active Family history of cardiac di sorder: Grandfather, Uncle, Paternal Grandmother, Maternal Grandfather(V17.49, Z82.49) Status:Active Family history of bleeding d isorder: Maternal Grandmother(V18.3, Z83.2) Status:Active Irregular heart beat: Patern al Grandmother Status:Active Family history of myocardial infarction: Maternal Grandfather(V17.3, Z82.49) Status:Active Unknown Family Member Name Dates Details Family history of osteoporos is: Grandmother, Maternal Grandmother(V17.81, Z82.62) Status:Active Family history of cardiac di sorder: Grandfather, Uncle, Paternal Grandmother, Maternal Grandfather(V17.49, Z82.49) Status:Active Family history of myocardial infarction: Maternal Grandfather(V17.3, Z82.49) Status:Active Irregular heart beat: Patern al Grandmother Status:Active Family history of bleeding d isorder: Maternal Grandmother(V18.3, Z83.2) Status:Active Family history of bicuspid a ortic valve: Son(V17.49, Z82.79) Status:Active Family history of malignant neoplasm of colon: Grandmother(V16.0, Z80.0) Status:Active Unknown Family Member Name Dates Details Family history of malignant neoplasm of colon: Grandmother(V16.0, Z80.0) Status:Active Family history of bicuspid a ortic valve: Son(V17.49, Z82.79) Status:Active Family history of osteoporos is: Grandmother, Maternal Grandmother(V17.81, Z82.62) Status:Active Family history of cardiac di sorder: Grandfather, Uncle, Paternal Grandmother, Maternal Grandfather(V17.49, Z82.49) Status:Active Family history of bleeding d isorder: Maternal Grandmother(V18.3, Z83.2) Status:Active Irregular heart beat: Patern al Grandmother Status:Active Family history of myocardial infarction: Maternal Grandfather(V17.3, Z82.49) Status:Active Unknown Family Member Name Dates Details Family history of malignant neoplasm of colon: Grandmother(V16.0, Z80.0) Status:Active Family history of bicuspid a ortic valve: Son(V17.49, Z82.79) Status:Active Family history of osteoporos is: Grandmother, Maternal Grandmother(V17.81, Z82.62) Status:Active Family history of cardiac di sorder: Grandfather, Uncle, Paternal Grandmother, Maternal Grandfather(V17.49, Z82.49) Status:Active Family history of bleeding d isorder: Maternal Grandmother(V18.3, Z83.2) Status:Active Irregular heart beat: Patern al Grandmother Status:Active Family history of myocardial infarction: Maternal Grandfather(V17.3, Z82.49) Status:Active Advance Directives No Advanced Directives Records FoundNo Advanced Directives Records FoundNo Advanced Directives Records FoundNo Advanced Directives Records FoundNo Advanced Directives Records Found Reason for Referral Specialty Diagnoses / Procedures Referred By Juanjose almaraz Referred To Contact MR IMAGING Diagnoses Paresthesia of skin Paresthesias Blurred vision, bilateral Fatigue, unspecified type Procedures MRI BRAIN WO IVCON MRI BRAIN BRAIN STEM W/O CONTRAST MATERIAL Benny Glez, DO [address] [place] [address] Mr Imaging Referral ID Status Reason Start Date Expiration Date Visits Requested Visits Authorized [id number] Pending Review Auto-Generat ed Referral 06/10/2021 07/10/2022 1 1 Specialty Diagnoses / Procedures Referred By Juanjose almaraz Referred To Contact [facility] Diagnoses Paresthesias Procedures EMG(NEURO/NI) NERVE CONDUCTION STUDIES 9-10 STUDIES Benny Glez, DO [address] [place] [address] Neurological [facility] [address] [place] [address] Referral ID Status Reason Start Date Expiration Date Visits Requested Visits Authorized [id number] Pending Review Auto-Generat ed Referral 06/10/2021 06/10/2022 1 1 Specialty Diagnoses / Procedures Referred By Juanjose almaraz Referred To Contact Neurology Diagnoses Abnormal finding on MRI of brain Paresthesias Blurred vision, bilateral Fatigue, unspecified type Procedures CONSULT TO NEUROLOGY OFFICE/OUTPATIENT NEW HIGH MDM 60-74 MINUTES Benny Glez, DO [address] [place] [address] Referral ID Status Reason Start Date Expiration Date Visits Requested Visits Authorized [id number] Pending Review PCP Requested Referral 06/12/2021 06/12/2022 1 1 Chief Complaint New patient here today with concerns of painful intercourse. She states it is painful during but also after with bloating and urinary frequency. She states she is being treated with Flagyl for UTI has 2 more days of antibiotic. She also has heavy periods that last 8-10 days using super plus and super tampons the whole time. LMP:2PT HERE TODAY TO GO OVER ULTRASOUND RESULTS. PT STATES SHE IS STILL BLEEDING WELL. LMP 09/29/21* CHEST PAIN- NO CURRENTLY. INTERMITTENT RANDOM * STARTED 2 MONTHS * CHEST PAIN- NO CURRENTLY. INTERMITTENT RANDOM * STARTED 2 MONTHS * A telephone visit (audio only) between the patient (at the originating site) and the provider (at the distant site) was utilized to provide this telehealth service. * Verbal consent was requested and obtained from ROSALINDA GARCIA on this date, 11/10/2021 03:15 PM, for a telehealth visit. * follow up echo Additional Source Comments INFORMATION SOURCE (unrecogn ized section and content) DATE CREATED AUTHOR AUTHOR'S ORGANIZ ATION 11/10/2021 [facility] DATE CREATED AUTHOR AUTHOR'S ORGANIZ ATION 12/06/2021 [facility] DATE CREATED AUTHOR AUTHOR'S ORGANIZ ATION 02/26/[address] [facility] DATE CREATED AUTHOR AUTHOR'S ORGANIZ ATION 02/04/2023 [facility] Source Comments (unrecognize d section and content) In the event this informatio n is protected by the Federal Confidentiality of Alcohol and Drug Abuse Patient Records regulations: The Federal rules restrict any use of the information to criminally investigate or prosecute any alcohol or drug abuse patient.[facility] the event this information is protected by the Federal Confidentiality of Alcohol and Drug Abuse Patient Records regulations: The Federal rules restrict any use of the information to criminally investigate or prosecute any alcohol or drug abuse patient.[facility] the event this information is protected by the Federal Confidentiality of Alcohol and Drug Abuse Patient Records regulations: The Federal rules restrict any use of the information to criminally investigate or prosecute any alcohol or drug abuse patient.[facility] the event this information is protected by the Federal Confidentiality of Alcohol and Drug Abuse Patient Records regulations: The Federal rules restrict any use of the information to criminally investigate or prosecute any alcohol or drug abuse patient.[facility] the event this information is protected by the Federal Confidentiality of Alcohol and Drug Abuse Patient Records regulations: The Federal rules restrict any use of the information to criminally investigate or prosecute any alcohol or drug abuse patient.[facility] the event this information is protected by the Federal Confidentiality of Alcohol and Drug Abuse Patient Records regulations: The Federal rules restrict any use of the information to criminally investigate or prosecute any alcohol or drug abuse patient.[facility] the event this information is protected by the Federal Confidentiality of Alcohol and Drug Abuse Patient Records regulations: The Federal rules restrict any use of the information to criminally investigate or prosecute any alcohol or drug abuse patient.[facility] the event this information is protected by the Federal Confidentiality of Alcohol and Drug Abuse Patient Records regulations: The Federal rules restrict any use of the information to criminally investigate or prosecute any alcohol or drug abuse patient.[facility] the event this information is protected by the Federal Confidentiality of Alcohol and Drug Abuse Patient Records regulations: The Federal rules restrict any use of the information to criminally investigate or prosecute any alcohol or drug abuse patient.[facility] the event this information is protected by the Federal Confidentiality of Alcohol and Drug Abuse Patient Records regulations: The Federal rules restrict any use of the information to criminally investigate or prosecute any alcohol or drug abuse patient.[facility] the event this information is protected by the Federal Confidentiality of Alcohol and Drug Abuse Patient Records regulations: The Federal rules restrict any use of the information to criminally investigate or prosecute any alcohol or drug abuse patient.[facility] the event this information is protected by the Federal Confidentiality of Alcohol and Drug Abuse Patient Records regulations: The Federal rules restrict any use of the information to criminally investigate or prosecute any alcohol or drug abuse patient.[facility] the event this information is protected by the Federal Confidentiality of Alcohol and Drug Abuse Patient Records regulations: The Federal rules restrict any use of the information to criminally investigate or prosecute any alcohol or drug abuse patient.[facility] the event this information is protected by the Federal Confidentiality of Alcohol and Drug Abuse Patient Records regulations: The Federal rules restrict any use of the information to criminally investigate or prosecute any alcohol or drug abuse patient.[facility] the event this information is protected by the Federal Confidentiality of Alcohol and Drug Abuse Patient Records regulations: The Federal rules restrict any use of the information to criminally investigate or prosecute any alcohol or drug abuse patient.[facility] the event this information is protected by the Federal Confidentiality of Alcohol and Drug Abuse Patient Records regulations: The Federal rules restrict any use of the information to criminally investigate or prosecute any alcohol or drug abuse patient.[facility] the event this information is protected by the Federal Confidentiality of Alcohol and Drug Abuse Patient Records regulations: The Federal rules restrict any use of the information to criminally investigate or prosecute any alcohol or drug abuse patient.[facility] the event this information is protected by the Federal Confidentiality of Alcohol and Drug Abuse Patient Records regulations: The Federal rules restrict any use of the information to criminally investigate or prosecute any alcohol or drug abuse patient.[facility] the event this information is protected by the Federal Confidentiality of Alcohol and Drug Abuse Patient Records regulations: The Federal rules restrict any use of the information to criminally investigate or prosecute any alcohol or drug abuse patient.[facility] the event this information is protected by the Federal Confidentiality of Alcohol and Drug Abuse Patient Records regulations: The Federal rules restrict any use of the information to criminally investigate or prosecute any alcohol or drug abuse patient.[facility] the event this information is protected by the Federal Confidentiality of Alcohol and Drug Abuse Patient Records regulations: The Federal rules restrict any use of the information to criminally investigate or prosecute any alcohol or drug abuse patient.[facility] Reason for Visit (unrecogniz ed section and content) Specialty Diagnoses / Procedures Referred By Juanjose almaraz Referred To Contact Family Practice / FAMILY MEDICINE Diagnoses Tingling in legs/extremities Procedures MYC OFFICE VISIT Self Benny Glez, DO [address] [place] [address] Referral ID Status Reason Start Date Expiration Date Visits Requested Visits Authorized [id number] Authorized Financial Clearance Required - OON Payor OON Notification Letter Financial Clearance Not Required 03/07/2021 03/06/2022 20 20 Reason Comments Patient Question: xray result Reason Comments fax order to outside facility Reason Comments Fax orders to outside provider Reason Comments Patient Information Reason Comments Results - Mri Reason Comments Patient Question Reason Comments Refill Request Reason Onset Date Comments Refill Request 01/27/2022 Reason Onset Date Comments Refill Request 04/28/2022 Reason Onset Date Comments Refill Request 07/29/2022 Reason Onset Date Comments Refill Request 09/06/2022 Specialty Diagnoses / Procedures Referred By Contac t Referred To Contact Family Medicine / FAMILY MEDICINE Diagnoses Upper back pain on right side Upper right back pain Procedures OFFICE/OUTPATIENT NEW MODERATE MDM 45-59 MINUTES MYC OFFICE VISIT Self Benny Glez, DO [address] [place] [address] Referral ID Status Reason Start Date Expiration Date Visits Requested Visits Authorized [id number] Closed OON Notification Letter Financial Clearance Required - OON Payor Patient Cleared - Admin/Screwdown Operator/D irector advise to proceed or did not respond 10/04/2022 08/08/2023 1 1 Care Teams (unrecognized sec tion and content) Machine Operators Relationship Specialty Start Date End Date Benny Glez, DO [address] [place] [address] PCP - General Family Practice 05/20/15 Machine Operators Relationship Specialty Start Date End Date Benny Glez, DO [address] [place] [address] PCP - General Family Practice 05/20/15 Machine Operators Relationship Specialty Start Date End Date Benny Glez DO [address] [place] [address] PCP - General Family Practice 05/20/15 Machine Operators Relationship Specialty Start Date End Date Benny Glez DO [address] [place] [address] PCP - General Family Practice 05/20/15 Machine Operators Relationship Specialty Start Date End Date Benny Glez, DO [address] [place] [address] PCP - General Family Practice 05/20/15 Machine Operators Relationship Specialty Start Date End Date Benny Glez, DO [address] [place] [address] PCP - General Family Practice 05/20/15 Machine Operators Relationship Specialty Start Date End Date Benny Glez, DO [address] [place] [address] PCP - General Family Medicine 05/20/15 Machine Operators Relationship Specialty Start Date End Date Benny Glez DO [address] [place] [address] PCP - General Family Medicine 05/20/15 Machine Operators Relationship Specialty Start Date End Date Benny Glez DO [address] [place] [address] PCP - General Family Medicine 05/20/15 Machine Operators Relationship Specialty Start Date End Date Benny Glez DO [address] [place] [address] PCP - General Family Medicine 05/20/15 Machine Operators Relationship Specialty Start Date End Date Benny Glez DO [address] [place] [address] PCP - General Family Medicine 05/20/15 Machine Operators Relationship Specialty Start Date End Date Benny Glez DO [address] [place] [address] PCP - General Family Medicine 05/20/15 Machine Operators Relationship Specialty Start Date End Date Benny Glez DO [address] [place] [address] PCP - General Family Medicine 05/20/15 Machine Operators Relationship Specialty Start Date End Date Benny Glez DO [address] [place] [address] PCP - General Family Medicine 05/20/15 Machine Operators Relationship Specialty Start Date End Date Benny Glez DO [address] [place] [address] PCP - General Family Medicine 05/20/15 FOR RECORDS PERTAINING TO PATIENTS WHO ARE OR HAVE BEEN ENROLLED IN A CHEMICAL DEPENDENCY/SUBSTANCEABUSE PROGRAM, SOME INFORMATION MAY BE OMITTED. This clinical summary was aggregated from multiple sources. Caution should be exercised in using it in the provision of clinical care. This summary normalizes information from multiple sources, and as a consequence, information in this document may materially change the coding, format and clinical context of patient data. In addition, data may be omitted in some cases. CLINICAL DECISIONS SHOULD BE BASED ON THE PRIMARY CLINICAL RECORDS. [facility]. provides no warranty or guarantee of the accuracy or completeness of information in this document.
== END | disposition home or self-care (01) ==
LOC: LABSPEC 16:32
PROVIDERS: PCP Student in an Organized Health Care Education/Training Program; Referring Provider Obstetrics & Gynecology; Visit Provider Obstetrics & Gynecology
DX: N72 Inflammatory disease of cervix uteri (principal)
CPT/HCPCS: 88305; 88341; 88342

== ENCOUNTER → 2023-04-11 | Outpatient (CLI) | payer BC, SELFPAY ==
--- NOTE | 2023-04-11 16:31 | US_ITS ---
STUDY: ULTRASOUND OF THE FEMALE PELVIS - COMPLETE REASON FOR EXAM: Female, 32 years old. pelvic pain LMP: TECHNIQUE: Transabdominal and transvaginal TECHNICAL QUALITY: Adequate. COMPARISON: January 08, 2022 FINDINGS: The uterus is anteverted and is in a midline position. The uterus measures 11.8 x 5.6 x 3 cm. Normal uterine cervix. The endometrium measures 13 mm in thickness, and is hyperechoic. There is no demonstrated endometrial mass. There is no demonstrated myometrial mass. I.U.D. - The patient does not have an I.U.D. The right ovary is visualized. The right ovary measures 2.9 x 1.8 x 1.4 cm. There is no right ovarian cyst or ovarian mass. There is no visualized right adnexal mass or complex lesion. There is normal arterial and normal venous vascularity. The left ovary is visualized. The left ovary measures 4.3 x 3.5 x 3 cm. There is a cyst measuring 3 x 2.7 x 2.4 cm. There is no visualized left adnexal mass or complex lesion. There is normal arterial and normal venous vascularity. There is no fluid in the cul-de-sac. There is bilateral prominence of pelvic vascularity The pre void volume of the bladder was 708.85 ml. US/Pelvic w/ Transvaginal IMPRESSION: Small left ovarian cyst measuring 3 x 2.7 x 2.4 cm which is new finding since prior exam Bilateral prominence of the pelvic vascularity which may be consistent with nonspecific pelvic congestive type syndrome Electronically Signed: Raymon Sandoval MD at 22:49 EST ,
--- OUTSIDE RECORDS SUMMARY | 2023-04-11 17:48 | XMS RPT_ITS | CCD ---
Author Name Unknown Address [address] [place] [address] Organization [facility] Care Team Providers Care Investigator Operator Name Role Phone Denys Ania Unavailable Unavailable [...] Dr. Kadeem Michaels Attending Unavailable Johnathon, Dr. Benyn Dobbs Primary Care Yuva ilazeb Wolff, Dr. Kadeem Michaels Attending Unavailable Dr. Benny Glez Primary Care Yuva ilazeb Lorenzo, Dr. Maribel Healy Referring Unav ailable Lorenzo, Dr. Maribel Healy Attending Unav ailable Johnathon, [...] [BEE POLLEN] Drug Allergy 3 Itching, Swelling [facility] (20 sources) Seasonal allergy; Translations: [SEASONAL ALLERGIES] Allergy to substance Itching [facility] (20 sources) tree nut, unspecified; Translations: [TREE NUTS] Drug Allergy 6 Swelling [facility] (10 sources) tree nut, unspecified Allergy to substance (finding) [facility] [address] Work Phone: Medications Completed/Discontinued Medications Medication Drug [...] 157.48 cm Benny Adamson Glez Work Phone: DN-Cxbmlbjzqo-Ayuz and [address] Work Phone: 10-06-2021 14:20-0400 Body mass index (BMI) [Ratio] 28.9 kg/m2 Benny Adamson Glez Work Phone: GN-Rxynihjnbz-Ogoc and [address] Work Phone: 10-06-2021 14:20-0400 Body surface area Derived from formula 1.73 m2 Benny Adamson Glez Work Phone: ZS-Xrdtaaohsh-Drby and [address] Work Phone: 10-06-2021 14:20-0400 Body weight 71.67 kg Benny Adamson Glez Work Phone: PJ-Ettkybahcs-Vlik and [address] Work Phone: 10-06-2021 14:20-0400 Diastolic blood pressure 86 mm[Hg] Benny Adamson Glez Work Phone: MV-Uyrkrdlcte-Hcmd and [address] Work Phone: 10-06-2021 14:20-0400 Heart rate 91 /min Benny L Glez Work Phone: VJ-Twgqkborzg-Secf and [address] Work Phone: 10-06-2021 14:20-0400 Respiratory rate 18 /min Benny L Glez Work Phone: AH-Celolkqkdv-Nimf and [address] Work Phone: 10-06-2021 14:20-0400 SaO2% (BldA) [Mass fraction] 99 % Benny L Glez Work Phone: WJ-Fcbenijbbh-Tlvj and [address] Work Phone: 10-06-2021 14:20-0400 Systolic blood pressure 123 mm[Hg] Benny L Glez Work Phone: XE-Jlmrsmowix-Iaiz and [address] Work Phone: 10-05-2021 13:14-0400 Body height 157.48 cm Benny L Glez Work Phone: [facility] [address] Work Phone: 10-05-2021 13:14-0400 Body mass index (BMI) [Ratio] 28.87 kg/m2 Benny L Glez Work Phone: [facility] [address] Work Phone: 10-05-2021 13:14-0400 Body surface area Derived from formula 1.73 m2 Benny L Glez Work Phone: [facility] [address] Work Phone: 10-05-2021 13:14-0400 Body weight 71.6 kg Benny L Glez Work Phone: [facility] [address] Work Phone: 10-05-2021 13:14-0400 Diastolic blood pressure 76 mm[Hg] Benny L Glez Work Phone: [address] Work Phone: 10-05-2021 13:14-0400 Systolic blood pressure 130 mm[Hg] Benny Juan Diego Glez Work Phone: [address] Work Phone: 09-21-2021 13:44-0400 Body height 157.48 cm Benny L Glez Work Phone: [address] Work Phone: 09-21-2021 13:44-0400 Body mass index (BMI) [Ratio] 28.83 kg/m2 Benny L Glez Work Phone: [address] Work Phone: 09-21-2021 13:44-0400 Body surface area Derived from formula 1.73 m2 Benny L Glez Work Phone: [address] Work Phone: 09-21-2021 13:44-0400 Body weight 71.5 kg Benny L Glez Work Phone: [address] Work Phone: 09-21-2021 13:44-0400 Diastolic blood pressure 84 mm[Hg] Benny L Glez Work Phone: [address] Work Phone: 09-21-2021 13:44-0400 Systolic blood pressure 132 mm[Hg] Benny L Glez Work Phone: [address] Work Phone: 06-22-2021 08:11-0400 Body height 157.48 cm Benny L Glez Work Phone: RO-Qikhpddbh-Cbwmy [address] Work Phone: 06-22-2021 08:11-0400 Body mass index (BMI) [Ratio] 27.25 kg/m2 Benny L Glez Work Phone: NG-Rozrxmyin-Tungz [address] Work Phone: 06-22-2021 08:11-0400 Body surface area Derived from formula 1.69 m2 Benny Adamson Glez Work Phone: IF-Hqdhijvyp-Wyltg [address] Work Phone: 06-22-2021 08:11-0400 Body temperature 98.4 [degF] Benny Adamson Glez Work Phone: HS-Aklpdvkat-Okiuc [address] Work Phone: 06-22-2021 08:11-0400 Body weight 67.59 kg Benny Adamson Glez Work Phone: BL-Miyephhhp-Hcddu [address] Work Phone: 06-22-2021 08:11-0400 Diastolic blood pressure 86 mm[Hg] Benny Adamson Glez Work Phone: KY-Vjcyxkqzr-Wdkbm [address] Work Phone: 06-22-2021 08:11-0400 Heart rate 92 /min Benny Adamson Glez Work Phone: EP-Mrtpcveci-Cwpis [address] Work Phone: 06-22-2021 08:11-0400 Respiratory rate 18 /min Benny Adamson Glez Work Phone: HX-Ctwforyqp-Bemnx [address] Work Phone: 06-22-2021 08:11-0400 SaO2% (BldA) [Mass fraction] 97 % Benny Adamson Glez Work Phone: TY-Jfvouquxw-Guezr [address] Work Phone: 06-22-2021 08:11-0400 Systolic blood pressure 136 mm[Hg] Benny L Glez Work Phone: MH-Fobasrmlh-Ypwpt [address] Work Phone: 06-10-2021 16:42-0400 Body temperature 98.01 [degF] Benny Glez DO Work Phone: [facility] 06-10-2021 16:42-0400 Body weight 69.85 kg Benny Glez DO Work Phone: [facility] 06-10-2021 16:42-0400 Diastolic blood pressure 70 mm[Hg] Benny Glez DO Work Phone: [facility] 06-10-2021 16:42-0400 Heart rate 80 /min Benny Glez DO Work Phone: [facility] 06-10-2021 16:42-0400 Respiratory rate 16 /min Benny Glez DO Work Phone: [facility] 06-10-2021 16:42-0400 Systolic blood pressure 124 mm[Hg] Benny Glez DO Work Phone: [facility] 03-22-2019 12:41-0500 BMI (Body Mass Index) 25.15 kg/m2 Ania Mcfarlane [facility] Work Phone: 03-22-2019 12:41-0500 Body weight 64.41 kg Ania Mcfarlane [facility] Work Phone: 03-22-2019 12:41-0500 BP Diastolic 60 mm[Hg] Ania Mcfarlane [facility] Work Phone: 03-22-2019 12:41-0500 BP Systolic 138 mm[Hg] Ania Mcfarlane [facility] Work Phone: 03-22-2019 12:41-0500 BSA (Body Surface Area) 1.67 m2 Ania Mcfarlane [facility] Work Phone: 03-22-2019 12:41-0500 Height 160.02 cm Ania Mcfarlane [facility] Work Phone: 03-22-2019 12:41-0500 Pulse (Heart Rate) 80 /min Ania Mcfarlane [facility] Work Phone: 03-22-2019 12:41-0500 Respiratory Rate 18 /min Ania Denys [facility] Work Phone: 03-22-2019 12:41-0500 4 1 [facility]arlane [facility] Work Phone: Encounters Encounter Date Encounter Type Care Provider Facility Start: 01-21-2023 End: 01-21-2023 ambulatory BENNY GLEZ Facility:[facility] Start: 01-21-2023 End: 01-21-2023 Patient encounter procedure [...] Detail Author Start: 06-11-2029 Urine microalbumin profile [facility] Start: 01-13-2028 HPV Testing HPV Testing [facility] Start: 01-13-2028 Pap Testing Pap Testing [facility] Start: 02-02-2027 HPV TESTING HPV TESTING [facility] Start: 02-02-2027 PAP TESTING PAP TESTING [facility] Start: 11-28-2025 HPV TESTING HPV TESTING [facility] Start: 11-28-2025 PAP TESTING PAP TESTING [facility] Start: 09-26-2023 Covid-19 Vaccine (2 - Booster for Chidi series) Covid-19 Vaccine (2 - Booster for Chidi series) [facility] Immunizations Immunization Date Immunization Notes Care Provider Zach venegas 12-14-2022 influenza virus vaccine, unspecified formulation Benny Glez DO Work Phone: [facility] 12-29-2021 influenza virus vaccine, unspecified formulation Sera Shin APRN.CNP Work Phone: [facility] 01-26-2020 influenza, injectabl e, quadrivalent, contains preservative Benny Glez DO Work Phone: [facility] 06-12-2019 tetanus toxoid, redu suzy diphtheria toxoid, and acellular pertussis vaccine, adsorbed Benny Glez DO Work Phone: [facility] Work Phone: 03-21-2019 influenza, injectabl e, quadrivalent, contains preservative Benny Glez DO Work Phone: [facility] 12-28-2017 influenza virus vaccine, unspecified formulation Benny Glez DO Work Phone: [facility] 12-28-2017 influenza, seasonal, injectable Benny Glez DO Work Phone: [facility] 09-09-2017 tetanus toxoid, redu suzy diphtheria toxoid, and acellular pertussis vaccine, adsorbed Benny Glez DO Work Phone: [facility] 12-10-2016 influenza virus vaccine, unspecified formulation Benny Glez DO Work Phone: [facility] 01-07-2016 tetanus toxoid, redu suzy diphtheria toxoid, and acellular pertussis vaccine, adsorbed Benny Glez DO Work Phone: [facility] Work Phone: 12-09-2015 influenza virus vaccine, unspecified formulation Benny Glez DO Work Phone: [facility] Payers Date Payer Category Payer Unknown [id number] 2016 Unknown 2016 Unknown [employer] [id number] 2016-Present [address] [place] [address] PPO [id number] 2016 Unknown [id number] 1989 Unknown [id number] 1989 Unknown [id number] 9 1989 Unknown [id number] 9 1989 Unknown [id number] Social History Date Type Detail Facility Assertion Unknown if ever smoked -[facility] Work Phone: Start: 01-26-2020 End: 09-25-2022 Non-smoker Non-smoker [facility] Start: 09-25-2022 Tobacco smoking stat [facility] Never smoked tobacco [facility] Work Phone: Start: 06-10-2021 End: 09-25-2022 Alcohol intake Ex-drinker (finding) [facility] Start: 09-11-2019 History SDOH Alcohol Frequency 3 [facility] Start: 09-11-2019 History SDOH Alcohol Std Drinks 1 [facility] Start: 09-11-2019 History SDOH Social Connections Phone 5 [facility] Start: 01-26-2020 End: 02-11-2020 History SDOH Social Connections Get Together 2 [facility] Start: 01-26-2020 History SDOH Physica l Activity DPW 0 [facility] Start: 09-11-2019 Education 17 [facility] Start: 1990 Sex Assigned At Not on file [facility] Start: 05-31-2021 End: 06-10-2021 Exposure to SARS-CoV-2 (event) Not sure [facility] Work Phone: Start: 09-25-2022 Tobacco use and exposure Smoke less tobacco non-user [facility] Start: 01-26-2020 End: 09-25-2022 Social connection and isolation panel [facility] Frequency of Communi cation with Friends and Family Not on file [facility] How often to you hav e a drink containing alcohol? 2-4 times a month [facility] How many standard dr inks containing alcohol do you have on a typical day? 1 or 2 [facility] How often do you hav e 6 or more drinks on 1 occasion? Never [facility] Do you feel stress - tense, restless, nervous, or anxious, or unable to sleep at night because your mind is troubled all the time - these days [OSQ] Only a little [facility] (I/We) worried wheth er (my/our) food would run out before (I/we) got money to buy more. Never true [facility] In the past 12 month s, was there a time when you were not able to pay the mortgage or rent on time? No [facility] Functional Status Date Assessment Result Facility NEGATED: Highlighted row Functional performance Functional status health issues are not documented Disease [facility] Work Phone: Mental Status Date Assessment Result Facility NEGATED: Highlighted row Cognitive function [Interpretation] Cognitive status health issues are not documented Disease [facility] Work Phone: Clinical Notes 12-25-2018 to 01-26-2023 Benny Glez DO - 01/26/2023 6:32 PM ESTTelephone Encounter - Mar Armenta - 12/15/2022 11:46 AM EDTTelephone Encounter - Qian Pete APRN.CNP - 12/15/2022 11:38 AM EDT Note Date & Type Note Facility 01-26-2023 Note HNO ID: [id number] Author: Benny Glez DO Service: ? Author [...] benefits, alternatives, a (more content not included)... [facility] 01-26-2023 History of Present illness Narrative CC: [...] See patient instructions. Benny Glez DO [address] [place] [address] documented in this encounter [facility] 12-15-2022 Miscellaneous Notes Pt informed Mar Armenta Her A1C (3-month blood glucose average) level is the best thing to look at for diabetes. It looks great, no concerns at all for diabetes. Qian Pete APRN.[employer] AND AIR DELIVERY SPECIALIST documented in this encounter [facility] 11-23-2022 Miscellaneous Notes See telephone note documented in this encounter [facility] 09-25-2022 Note HNO ID: [id number] Author: Benny Glez, DO Service: ? Author [...] above Diagnosed with PCOS by Dr. Guzmán BAR PILOT PAST MEDICAL HISTORY Diagnosis Date Abnormal Pap [...] diet of 1000 mg/day for under 50, 5455-9669 mg/day for 50+ - Discussed need and [...] expressed understanding a (more content not included)... [facility] 09-08-2022 Miscellaneous Notes Patient has been identified [...] Del Rio, RN documented in this encounter [facility] 08-04-2022 Miscellaneous Notes Pt notified of such. Overdue for office visit, no additional refills. The following approved medication requests have been transmitted electronically. Requested Prescriptions Signed Prescriptions Disp Refills FLUoxetine (PROZAC) 10 mg capsule 30 capsule 0 Sig: Take 1 capsule by mouth once daily. Authorizing Provider: SERA BRIDGES Ordering User: QIAN PETE APRN.A[employer]NE AND AIR DELIVERY SPECIALIST Patient phones requesting refills as follows: Requested Prescriptions Pending Prescriptions Disp Refills FLUoxetine (PROZAC) 10 mg capsule 30 capsule 2 Sig: Take 1 capsule by mouth once daily. PAUL-06/10/21 Labs-06/08/21 NOV-09/25/22 Please review and advise. Negrita Plaza LPN documented in this encounter [facility] 04-28-2022 Miscellaneous Notes Requested Prescriptions Pending Prescriptions Disp Refills FLUoxetine (PROZAC) 10 mg capsule 30 capsule 2 Sig: Take 1 capsule by mouth once daily. PAUL 06/10/2021 NOV not scheduled at this time Mar Armenta documented in this encounter [facility] 01-27-2022 Miscellaneous Notes Handled in refill encounter. Pt made aware. Juli Ryan Ma documented in this encounter [facility] 01-27-2022 Miscellaneous Notes Paul--06/10/21 Nov--nothing Last refill--10/28/21 30 with 2 refills Last labs--06/11/21 documented in this encounter [facility] 12-09-2021 Miscellaneous Notes Please advise if willing to order. Juli Ryan Ma documented in this encounter [facility] 10-28-2021 Miscellaneous Notes Patient phones requesting refills as follows: Requested Prescriptions Pending Prescriptions Disp Refills FLUoxetine (PROZAC) 10 mg capsule [Pharmacy Med Name: FLUOXETINE HCL 10 MG CAPSULE] 30 capsule 2 Sig: take 1 capsule by mouth once daily PAUL-06/10/21 Labs-06/11/21 NOV-none med filled 07/24/21 Please review and advise. Negrita Plaza LPN documented in this encounter [facility] 10-09-2021 History of Present illness Narrative [...] was diagnosed with a bicuspid aortic valve. [facility] [email or web address] Phone: 10-06-2021 History of Present illness Narrative [...] was diagnosed with a bicuspid aortic valve. FT-Eznrvuxlqr-Lroggfp [facility] Work Phone: 10-05-2021 Note Provider Impressions Patient [...] Delivery of by section (669.70) (O82) 04/01/2016-39 eyymd-J-zgyczev-MALE-8lbs 9 oz 10/07/2017-40 wzggm-g-sqsvaty- FEMALE-8lbs 11 oz History of Menstruation age 15 History of Normal vaginal delivery (650) (O80) 08/14/2019- 39 weeks- ALFWZUB-UPTW-0txi 6 oz History of Pap test, as [...] daily Vitals Vital Signs Recorded: 05Oct2021 01:14PM [id number] Qraepifgg16 Height5 ft 2 in Dwfybx979 lb 13.57 oz BMI Jdequfzcil66.87 kg/m2 BSA Calculated1.73 [id number] Physical Exam Constitutional: Healthy-appearing in no distress. Head and Face: No obvious lesions. Neck: Supple without adenopathy. Pulmonary: Breathing comfortably. Musculoskeletal: Mobility. Psychiatric: Appropriately oriented with normal mood and affect. Signatures Electronically signed by : Maribel Lorenzo DO; Oct 05 2021 1:36PM EST (Author) [facility] 09-16-2021 History of Present illness Narrative Patient [...] breakthrough bleeding or abnormal discharge at present [address] Work Phone: 07-24-2021 Miscellaneous Notes The following approved medication requests have been transmitted electronically. Signed Prescriptions Disp Refills FLUoxetine (PROZAC) 10 mg capsule 30 capsule 2 Sig: Take 1 capsule by mouth once daily. BRIE: No Sera Zurawick, MACHINE OPERATOR PACKAGING.[employer] AND AIR DELIVERY SPECIALIST rx pended, please advise Mar Hamlin Ma documented in this encounter [facility] 06-22-2021 Miscellaneous Notes Pt. informed. Shanelle Wade LPN Patient calling in wanting to warp picker her MRI disc from that she dropped off for Dr Glez. Please call patient and let her know when she can pick this up. Aviva Decker Pss documented in this encounter [facility] 06-22-2021 History of Present illness Narrative [...] her annual checkup with her PCP at [facility]. 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 Glez. Qian Pete APRN.A[employer]NE AND AIR DELIVERY SPECIALIST Patient asking pcp to call her. Aware Dr. Glez is out next week. Patient has questions about the MRI results. Please phone her on her cell: [phone]. documented in this encounter [facility] 06-12-2021 Miscellaneous Notes Pt. informed. Shanelle [...] Chanel Partida RN documented in this encounter [facility] 06-11-2021 Miscellaneous Notes Fax number provided. documented in this encounter [facility] 06-11-2021 Miscellaneous Notes Noted, thank you. Qian Pete APRN.AIRBORNE AND AIR DELIVERY SPECIALIST Andrew with [facility] in [place] called and wanted Pts last office visit and Head CT. Sent to fax # [phone]. She was told I could give her Medical Records number if she wanted the last 3-6 months of records. documented in this encounter [facility] 06-11-2021 Miscellaneous Notes Patient calls back and requests orders for MRI and EMG be faxed to [facility] d/t insurance. Faxed to [phone] per patient request. Ashly Del Rio RN documented in this encounter [facility] 06-11-2021 Miscellaneous Notes Pt called and requested her order for MRI be faxed to . Her works there. FAX: [phone]. Done. Lashonda Sorenson LPN documented in this encounter [facility] 06-10-2021 History of Present illness Narrative [...] See patient instructions. Benny Glez DO [address] [place] [address] documented in this encounter [facility] 05-18-2021 Miscellaneous Notes Noted Benny Glez [...] xray. Thank you. documented in this encounter [facility] 09-13-2020 History of Present illness Narrative [...] of this encounter (statuses as of 06/11/2021) [facility]10-[facility]2019 History of Past illness Narrative* Problem [...] prefer not to have it dosed. [facility] consent signed. Milagro Alonso MD 02/21/2017 Pt [...] calculate rate of success using pre-labor factors: http://www.bsc.[email or web address]/mfmu/vagbirth.html Predicted chance of vaginal after : 65% [...] of this encounter (statuses as of 06/11/2021) [facility] History of Past illness Narrative* Problem [...] prefer not to have it dosed. [facility] consent signed. Milagro Alonso MD 02/21/2017 Pt [...] calculate rate of success using pre-labor factors: http://www.bs.[facility]/mfmu/vagbirth.html Predicted chance of vaginal after : 65% [...] of this encounter (statuses as of 06/11/2021) [facility] History of Past illness Narrative* Problem [...] desires a repeat C section by Dr Alosno.Considering PPTL. TRINIDAD on PPTL ordered. KRN Nausea [...] prefer not to have it dosed. [facility] consent signed. Milagro Alonso MD 02/21/2017 Pt [...] calculate rate of success using pre-labor factors: http://www.bsc.[facility].edu/mfmu/vagbirth.html Predicted chance of vaginal after : 65% [...] of this encounter (statuses as of 06/12/2021) [facility] History of Past illness Narrative* Problem [...] prefer not to have it dosed. [facility] consent signed. Milagro Alonso MD 02/21/2017 Pt [...] calculate rate of success using pre-labor factors: http://www.bs.[facility].edu/mfmu/vagbirth.html Predicted chance of vaginal after : 65% [...] of this encounter (statuses as of 07/22/2021) [facility] History of Past illness Narrative* Problem [...] prefer not to have it dosed. [facility] consent signed. Milagro Alonso MD 02/21/2017 Pt [...] calculate rate of success using pre-labor factors: http://www.bs.[facility]/mfmu/vagbirth.html Predicted chance of vaginal after : 65% [...] of this encounter (statuses as of 07/24/2021) [facility] History of Past illness Narrative* Problem [...] prefer not to have it dosed. [facility] consent signed. Milagro Alonso MD 02/21/2017 Pt [...] calculate rate of success using pre-labor factors: http://www.[facility]sc.[facility].edu/mfmu/vagbirth.html Predicted chance of vaginal after : 65% [...] of this encounter (statuses as of 08/25/2021) [facility] History of Past illness Narrative* Problem [...] prefer not to have it dosed. [facility] consent signed. Milagro Alonso MD 02/21/2017 Pt [...] calculate rate of success using pre-labor factors: http://www.bs.[facility].edu/mfmu/vagbirth.html Predicted chance of vaginal after : 65% [...] of this encounter (statuses as of 10/28/2021) [facility] History of Past illness Narrative* Problem [...] prefer not to have it dosed. [facility] consent signed. Milagro Alonso MD 02/21/2017 Pt [...] calculate rate of success using pre-labor factors: http://www.bsc.[facility].edu/mfmu/vagbirth.html Predicted chance of vaginal after : 65% [...] of this encounter (statuses as of 12/10/2021) [facility] History of Past illness Narrative* Problem [...] prefer not to have it dosed. [facility] consent signed. Milagro Alonso MD 02/21/2017 Pt [...] calculate rate of success using pre-labor factors: http://www.bs.[facility]/mfmu/vagbirth.html Predicted chance of vaginal after : 65% [...] of this encounter (statuses as of 01/27/2022) [facility] History of Past illness Narrative* Problem [...] prefer not to have it dosed. [facility] consent signed. Milagro Alonso MD 02/21/2017 Pt [...] calculate rate of success using pre-labor factors: http://www.bsc.[facility].edu/mfmu/vagbirth.html Predicted chance of vaginal after : 65% [...] of this encounter (statuses as of 01/27/2022) [facility]10-[facility]2019 History of Past illness Narrative* Problem [...] still deciding on best plan for her.Aviva Barrteo APRN.CNM 12/25/2018 Pt had 2 previous C [...] prefer not to have it dosed. [facility] consent signed. Milagro Alonso MD 02/21/2017 Pt [...] calculate rate of success using pre-labor factors: http://www.[facility].edu/mfmu/vagbirth.html Predicted chance of vaginal after : 65% [...] of this encounter (statuses as of 04/29/2022) [facility] History of Past illness Narrative* Problem [...] prefer not to have it dosed. [facility] consent signed. Milagro Alonso MD 02/21/2017 Pt [...] calculate rate of success using pre-labor factors: http://www.[email or web address]/mfmu/vagbirth.html Predicted chance of vaginal after : 65% [...] of this encounter (statuses as of 08/04/2022) [facility] History of Past illness Narrative* Problem [...] prefer not to have it dosed. [facility] consent signed. Milagro Alonso MD 02/21/2017 Pt [...] calculate rate of success using pre-labor factors: http://www.bsc.[facility]/mfmu/vagbirth.html Predicted chance of vaginal after : 65% [...] of this encounter (statuses as of 09/08/2022) [facility] History of Past illness Narrative* Problem [...] prefer not to have it dosed. [facility] consent signed. Milagro Alonso MD 02/21/2017 Pt [...] calculate rate of success using pre-labor factors: http://www.[facility].edu/mfmu/vagbirth.html Predicted chance of vaginal after : 65% [...] of this encounter (statuses as of 11/24/2022) [facility] History of Past illness Narrative* Problem [...] prefer not to have it dosed. [facility] consent signed. Milagro Alonso MD 02/21/2017 Pt [...] calculate rate of success using pre-labor factors: http://www.[facility].edu/mfmu/vagbirth.html Predicted chance of vaginal after : 65% [...] of this encounter (statuses as of 12/15/2022) [facility] History of Past illness Narrative* Problem [...] prefer not to have it dosed. [facility] consent signed. Milagro Alonso MD 02/21/2017 Pt [...] calculate rate of success using pre-labor factors: http://www.[facility]/mfmu/vagbirth.html Predicted chance of vaginal after : 65% [...] of this encounter (statuses as of 01/18/2023) [facility] History of Past illness Narrative* Problem [...] prefer not to have it dosed. [facility] consent signed. Milagro Alonso MD 02/21/2017 Pt [...] calculate rate of success using pre-labor factors: http://www.[facility]sc.[facility].edu/mfmu/vagbirth.html Predicted chance of vaginal after : 65% [...] of this encounter (statuses as of 02/02/2023) [facility] complaint Narrative - Reportedparesthesias, scleritis, abnormal MRI brain evaluation.[id number] Work Phone: [place] complaint Narrative - [...] of skin sensation [facility] Diagnosis Abnormal finding on MRI of brain- Primary Nonspecific (abnormal) findings on radiological and other examination of skull and head Paresthesias Disturbance of skin sensation Blurred vision, bilateral Other specified visual disturbances Fatigue, unspecified type documented [facility] Diagnosis Situational anxiety Other anxiety states documented in this [facility] Diagnosis Situational anxiety Other anxiety states documented [facility] Diagnosis Menorrhagia with regular cycle- Primary Excessive or frequent menstruation [facility] Diagnosis Situational anxiety Other anxiety states [facility] Diagnosis Situational anxiety Other anxiety states [facility] Situational anxiety Other anxiety states [facility] Diagnosis Neck pain- Primary Cervicalgia Somatic dysfunction of head region Somatic dysfunction of spine, cervical Nonallopathic lesion of cervical region, not elsewhere classified Somatic dysfunction of spine, thoracic Nonallopathic lesion of thoracic region, not elsewhere classified Somatic dysfunction of pelvic region Nonallopathic lesion of pelvic region, not elsewhere classified Somatic dysfunction of rib documented [facility] NarrativePatient is here for follow- up for pelvic pain and progressively heavier menses. Patient had ultrasound done and [facility] Work Phone: History of Present illness Narrative* [...] and denies any chest pain with exertion. [id number] Work Phone: Summary Purpose Family [...] STEM W/O CONTRAST MATERIAL Benny Glez, DO [address] [place] [address] Mr Imaging Referral ID Status Reason Start Date Expiration Date Visits Requested Visits Authorized [id number] Pending Review Auto-Generat ed Referral 06/10/2021 07/10/2022 1 1 Specialty Diagnoses / Procedures Referred By Juanjose almaraz Referred To Contact [facility] Diagnoses Paresthesias Procedures EMG(NEURO/NI) NERVE CONDUCTION STUDIES 9-10 STUDIES Benny Glez, DO [address] [place] [address] [facility] [place] [address] [place] [address] Referral ID Status Reason Start Date Expiration Date Visits Requested Visits Authorized [id number] Pending Review Auto-Generat ed Referral 06/10/2021 06/10/2022 1 1 Specialty Diagnoses / Procedures Referred By Juanjose almaraz Referred To Contact Neurology Diagnoses Abnormal finding on MRI of brain Paresthesias Blurred vision, bilateral Fatigue, unspecified type Procedures CONSULT TO NEUROLOGY OFFICE/OUTPATIENT NEW HIGH MDM 60-74 MINUTES Benny Glez, DO [address] [place] [address] Referral ID Status Reason Start Date Expiration Date Visits Requested Visits Authorized [id number] Pending Review PCP Requested Referral 06/12/2021 06/12/2022 [...] DATE CREATED AUTHOR AUTHOR'S ORGANIZ ATION 11/10/2021 [facility] DATE CREATED AUTHOR AUTHOR'S ORGANIZ ATION 12/06/2021 [employer] DATE CREATED AUTHOR AUTHOR'S ORGANIZ ATION 02/26/[address] [facility] DATE CREATED AUTHOR AUTHOR'S ORGANIZ ATION 02/04/2023 [facility] Comments (unrecognize d section and content) In the event this informatio n is protected by the Federal Confidentiality of Alcohol and Drug Abuse Patient Records regulations: The Federal rules restrict any use of the information to criminally investigate or prosecute any alcohol or drug abuse patient.[facility] the event this information is protected by the Federal Confidentiality of Alcohol and Drug Abuse Patient Records regulations: The Federal rules restrict any use of the information to criminally investigate or prosecute any alcohol or drug abuse patient.[facility] the event this information is protected by the Federal Confidentiality of Alcohol and Drug Abuse Patient Records regulations: The Federal rules restrict any use of the information to criminally investigate or prosecute any alcohol or drug abuse patient.[facility] the event this information is protected by the Federal Confidentiality of Alcohol and Drug Abuse Patient Records regulations: The Federal rules restrict any use of the information to criminally investigate or prosecute any alcohol or drug abuse patient.[facility] the event this information is protected by the Federal Confidentiality of Alcohol and Drug Abuse Patient Records regulations: The Federal rules restrict any use of the information to criminally investigate or prosecute any alcohol or drug abuse patient.[facility] the event this information is protected by the Federal Confidentiality of Alcohol and Drug Abuse Patient Records regulations: The Federal rules restrict any use of the information to criminally investigate or prosecute any alcohol or drug abuse patient.[facility] the event this information is protected by the Federal Confidentiality of Alcohol and Drug Abuse Patient Records regulations: The Federal rules restrict any use of the information to criminally investigate or prosecute any alcohol or drug abuse patient.[facility] the event this information is protected by the Federal Confidentiality of Alcohol and Drug Abuse Patient Records regulations: The Federal rules restrict any use of the information to criminally investigate or prosecute any alcohol or drug abuse patient.[facility] the event this information is protected by the Federal Confidentiality of Alcohol and Drug Abuse Patient Records regulations: The Federal rules restrict any use of the information to criminally investigate or prosecute any alcohol or drug abuse patient.[facility] the event this information is protected by the Federal Confidentiality of Alcohol and Drug Abuse Patient Records regulations: The Federal rules restrict any use of the information to criminally investigate or prosecute any alcohol or drug abuse patient.[facility] the event this information is protected by the Federal Confidentiality of Alcohol and Drug Abuse Patient Records regulations: The Federal rules restrict any use of the information to criminally investigate or prosecute any alcohol or drug abuse patient.[facility] the event this information is protected by the Federal Confidentiality of Alcohol and Drug Abuse Patient Records regulations: The Federal rules restrict any use of the information to criminally investigate or prosecute any alcohol or drug abuse patient.[facility] the event this information is protected by the Federal Confidentiality of Alcohol and Drug Abuse Patient Records regulations: The Federal rules restrict any use of the information to criminally investigate or prosecute any alcohol or drug abuse patient.[facility] the event this information is protected by the Federal Confidentiality of Alcohol and Drug Abuse Patient Records regulations: The Federal rules restrict any use of the information to criminally investigate or prosecute any alcohol or drug abuse patient.[facility] the event this information is protected by the Federal Confidentiality of Alcohol and Drug Abuse Patient Records regulations: The Federal rules restrict any use of the information to criminally investigate or prosecute any alcohol or drug abuse patient.[facility] HospitalIn the event this information is protected by the Federal Confidentiality of Alcohol and Drug Abuse Patient Records regulations: The Federal rules restrict any use of the information to criminally investigate or prosecute any alcohol or drug abuse patient.[facility] HospitalIn the event this information is protected by the Federal Confidentiality of Alcohol and Drug Abuse Patient Records regulations: The Federal rules restrict any use of the information to criminally investigate or prosecute any alcohol or drug abuse patient.[facility] HospitalIn the event this information is protected by the Federal Confidentiality of Alcohol and Drug Abuse Patient Records regulations: The Federal rules restrict any use of the information to criminally investigate or prosecute any alcohol or drug abuse patient.[facility] HospitalIn the event this information is protected by the Federal Confidentiality of Alcohol and Drug Abuse Patient Records regulations: The Federal rules restrict any use of the information to criminally investigate or prosecute any alcohol or drug abuse patient.[facility] HospitalIn the event this information is protected by the Federal Confidentiality of Alcohol and Drug Abuse Patient Records regulations: The Federal rules restrict any use of the information to criminally investigate or prosecute any alcohol or drug abuse patient.[facility] HospitalIn the event this information is protected by the Federal Confidentiality of Alcohol and Drug Abuse Patient Records regulations: The Federal rules restrict any use of the information to criminally investigate or prosecute any alcohol or drug abuse patient.[facility] Reason for Visit (unrecogniz ed section and content) Specialty Diagnoses / Procedures Referred By Juanjose almaraz Referred To Contact Family Practice / FAMILY MEDICINE Diagnoses Tingling in legs/extremities Procedures MYC OFFICE VISIT Self Benny Glez, DO [address] [place] [address] Referral ID Status Reason Start Date Expiration Date Visits Requested Visits Authorized [id number] Authorized Financial Clearance Required - OON Payor [...] MYC OFFICE VISIT Self Benny Glez, DO [address] [place] [address] Referral ID Status Reason Start Date Expiration Date Visits Requested Visits Authorized [id number] Closed OON Notification Letter Financial Clearance Required - OON Payor Patient Cleared - Admin/Environmental Protection Forester/D irector advise to proceed or did not respond 10/04/2022 08/08/2023 1 1 Care Teams (unrecognized sec tion and content) Investigator Operator Relationship Specialty Start Date End Date Benny Glez, DO [address] [place] [address] PCP - General Family Practice 05/20/15 Investigator Operator Relationship Specialty Start Date End Date Benny Glez, DO [address] [place] [address] PCP - General Family Practice 05/20/15 Investigator Operator Relationship Specialty Start Date End Date Benny Glez DO [address] [place] [address] PCP - General Family Practice 05/20/15 Investigator Operator Relationship Specialty Start Date End Date Benny Glez DO [address] [place] [address] PCP - General Family Practice 05/20/15 Investigator Operator Relationship Specialty Start Date End Date Benny Glez, DO [address] [place] [address] PCP - General Family Practice 05/20/15 Investigator Operator Relationship Specialty Start Date End Date Benny Glez, DO [address] [place] [address] PCP - General Family Practice 05/20/15 Investigator Operator Relationship Specialty Start Date End Date Benny Glez, DO [address] [place] [address] PCP - General Family Medicine 05/20/15 Investigator Operator Relationship Specialty Start Date End Date Benny Glez DO [address] [place] [address] PCP - General Family Medicine 05/20/15 Investigator Operator Relationship Specialty Start Date End Date Benny Glez DO [address] [place] [address] PCP - General Family Medicine 05/20/15 Investigator Operator Relationship Specialty Start Date End Date Benny Glez DO [address] [place] [address] PCP - General Family Medicine 05/20/15 Investigator Operator Relationship Specialty Start Date End Date Benny Glez DO [address] [place] [address] PCP - General Family Medicine 05/20/15 Investigator Operator Relationship Specialty Start Date End Date Benny Glez DO [address] [place] [address] PCP - General Family Medicine 05/20/15 Investigator Operator Relationship Specialty Start Date End Date Benny Glez DO [address] [place] [address] PCP - General Family Medicine 05/20/15 Investigator Operator Relationship Specialty Start Date End Date Benny Glez DO [address] [place] [address] PCP - General Family Medicine 05/20/15 Investigator Operator Relationship Specialty Start Date End Date Benny Glez DO [address] [place] [address] PCP - General Family Medicine 05/20/15 FOR [...] BE BASED ON THE PRIMARY CLINICAL RECORDS. [employer] [facility]. provides no warranty or guarantee of the accuracy or completeness of information in this document.
== END | disposition home or self-care (01) ==
PROVIDERS: PCP Student in an Organized Health Care Education/Training Program; Referring Provider Obstetrics & Gynecology; Visit Provider Obstetrics & Gynecology
DX: R10.2 Pelvic and perineal pain (principal)
CPT/HCPCS: 76830; 76856

== ENCOUNTER → 2024-06-27 | Outpatient (CLI) | payer BC, SELFPAY ==
[2024-06-27 08:33] LABS: Absolute Lymphocyte Count 1.56 X10^3/uL (0.83-4.51); Absolute Neutrophil Count 1.5 X10^3/uL (2.0-7.7); Basophil# 0.04 X10^3/uL; Basophil% 1.1 % (0-1); Eosinophil# 0.09 X10^3/uL; Eosinophils% 2.5 % (0-5); Hematocrit 38.4 % (37-47); Hemoglobin 12.4 g/dL (12.0-15.0); Lymphocyte # 1.56 X10^3/ul (0.83-4.51); Lymphocyte % 42.7 % (19-41); Mean Corp Hgb Conc 32.3 g/dL (32-36); Mean Corpuscular Hgb 28.8 pg (27.0-32.0); Mean Corpuscular Volume 89.3 fL (81-99); Mean Platelet Vol. 9.3 fl (6.2-12.0); Monocyte# 0.41 X10^3/uL; Monocyte% 11.2 % (0-10); NRBC Flagged by Analyzer 0 % (0-5); Neutrophil # 1.54 X10^3/uL (2.7-7.7); Neutrophil % 42.2 % (47-70); Platelet Count 242 K/mm3 (150-450); RBC Distribution Width CV 15.9 % (11.6-14.6); RBC Distribution Width SD 51.9 fl (35.1-43.9); White Blood Count 3.7 K/mm3 (4.4-11.0)
[2024-06-27 08:54] LABS: Hemoglobin A1c 5.2 % (<=5.6)
[2024-06-27 09:29] LABS: ALB/GLOB Ratio 1.3 RATIO (0.9-2.4); AST(SGOT) 28 U/L (<=31); Alanine Aminotransfer ALT/SGPT 22 U/L (<=34); Albumin, Serum 4.1 g/dL (3.5-5.0); Alkaline Phosphatase 56 U/L (35-104); Anion Gap 9 (5-15); BUN 17 mg/dL (4-19); BUN/Creat Ratio 21.6 RATIO (10-20); Calcium,Total 9.2 mg/dL (7.6-11.0); Carbon Dioxide 26.2 mmol/L (21.0-32.0); Chloride 103 mmol/L (98-108); Cholesterol 239 mg/dL (<=200); Creatinine, Serum 0.79 mg/dL (0.70-1.20); EST Glomerular Filtration Rate 100 (>60); Globulin 3.2 g/dL (2.2-4.2); Glucose 98 mg/dL (70-99); High Density Lipoprotein 72 mg/dL; Low Density Lipoprotein Calc. 152 mg/dL; Potassium 4.1 mmol/L (3.3-5.1); Protein, Total 7.3 g/dL (5.9-8.4); Sodium Level 139 mmol/L (133-145); Triglycerides 79 mg/dL; Very Low Density Lipoprotein 16 mg/dL (5-40); cholesterol:hdl ratio screen 3.33
[2024-06-27 09:31] LABS: Vitamin D,25 Hydroxy 54.1 ng/mL (30-100)
== END | disposition home or self-care (01) ==
LOC: LAB 08:05
PROVIDERS: PCP Student in an Organized Health Care Education/Training Program; Referring Provider Obstetrics & Gynecology; Visit Provider Obstetrics & Gynecology
DX: E28.2 Polycystic ovarian syndrome (principal); Z13.21 Encounter for screening for nutritional disorder; Z13.29 Encounter for screening for other suspected endocrine disorder; Z13.1 Encounter for screening for diabetes mellitus; Z13.220 Encounter for screening for lipoid disorders
CPT/HCPCS: 36415; 80053; 80061; 82306; 83036; 84443; 85025

== ENCOUNTER → 2024-07-11 | Outpatient (CLI) | payer BC, SELFPAY | END | disposition home or self-care (01) | LOC: LABSPEC 14:48 | PROVIDERS: PCP Student in an Organized Health Care Education/Training Program; Referring Provider Nurse Practitioner Family; Visit Provider Nurse Practitioner Family | DX: N89.8 Other specified noninflammatory disorders of vagina (principal) | CPT/HCPCS: 87070; 87205 ==

== ENCOUNTER → 2024-08-15 | Outpatient (CLI) | payer BC, SELFPAY ==
[2024-08-15 11:18] LABS: Absolute Lymphocyte Count 1.66 X10^3/uL (0.83-4.51); Absolute Neutrophil Count 3.7 X10^3/uL (2.0-7.7); Basophil# 0.03 X10^3/uL; Basophil% 0.5 % (0-1); Eosinophil# 0.09 X10^3/uL; Eosinophils% 1.5 % (0-5); Hematocrit 38.6 % (37-47); Hemoglobin 12.7 g/dL (12.0-15.0); Lymphocyte # 1.66 X10^3/ul (0.83-4.51); Lymphocyte % 27.8 % (19-41); Mean Corp Hgb Conc 32.9 g/dL (32-36); Mean Corpuscular Hgb 29.9 pg (27.0-32.0); Mean Corpuscular Volume 90.8 fL (81-99); Monocyte# 0.45 X10^3/uL; Monocyte% 7.5 % (0-10); NRBC Flagged by Analyzer 0 % (0-5); Neutrophil # 3.74 X10^3/uL (2.7-7.7); Neutrophil % 62.5 % (47-70); Platelet Count 270 K/mm3 (150-450); RBC Distribution Width CV 15.1 % (11.6-14.6); RBC Distribution Width SD 50.3 fl (35.1-43.9); Red Blood Count 4.25 M/mm3 (4.2-5.4)
[2024-08-15 11:58] LABS: Hemoglobin A1c 5.4 % (<=5.6)
[2024-08-15 12:20] LABS: ALB/GLOB Ratio 1.3 RATIO (0.9-2.4); AST(SGOT) 30 U/L (<=31); Alanine Aminotransfer ALT/SGPT 24 U/L (<=34); Albumin, Serum 4.4 g/dL (3.5-5.0); Alkaline Phosphatase 61 U/L (35-104); Anion Gap 9 (5-15); BUN 15 mg/dL (4-19); BUN/Creat Ratio 19.6 RATIO (10-20); Calcium,Total 9.2 mg/dL (7.6-11.0); Chloride 105 mmol/L (98-108); Cholesterol 230 mg/dL (<=200); Creatinine, Serum 0.76 mg/dL (0.70-1.20); EST Glomerular Filtration Rate 105 (>60); Globulin 3.3 g/dL (2.2-4.2); Glucose 93 mg/dL (70-99); High Density Lipoprotein 74 mg/dL; Low Density Lipoprotein Calc. 134 mg/dL; Potassium 3.8 mmol/L (3.3-5.1); Protein, Total 7.6 g/dL (5.9-8.4); Sodium Level 138 mmol/L (133-145); Total Bilirubin 0.53 mg/dL (0.00-1.30); Triglycerides 109 mg/dL; Very Low Density Lipoprotein 22 mg/dL (5-40)
== END | disposition home or self-care (01) ==
LOC: LAB 10:50
PROVIDERS: Family Medicine; PCP Student in an Organized Health Care Education/Training Program; Referring Provider Obstetrics & Gynecology; Visit Provider Obstetrics & Gynecology
DX: Z00.00 Encounter for general adult medical examination without abnormal findings (principal); Z13.220 Encounter for screening for lipoid disorders; E28.2 Polycystic ovarian syndrome
CPT/HCPCS: 36415; 80053; 80061; 82306; 83036; 84443; 85025

== ENCOUNTER → 2024-08-16 | Outpatient (CLI) | payer BC, SELFPAY ==
[2024-08-16 12:37] LABS: D-Dimer Quantitative (DVT/PE) 0.27 FEU/ug/m (0.27-0.49)
[2024-08-16 12:44] LABS: Prothrombin Time (Protime)PT. 12.9 SECONDS (11.7-14.9)
[2024-08-16 12:45] LABS: Partial Thromboplast Time 29.4 Seconds (24.1-36.2)
[2024-08-16 12:56] LABS: Pathologist Review May foll
[2024-08-19 17:07] LABS: Factor VIII Activity 99 % (56-140); Protein C Antigen 110 % (60-150); Protein C, Functional 99 % (73-180); Protein S, Free 125 % (61-136); Protein S, Funtional 115 % (63-140); Protein S, Total 77 % (60-150); VWD Studies Interp Report Note (.); von Willebrand Factor (vWF) Ag 92 % (50-200); von Willebrand Factor Activity 75 % (50-200)
== END | disposition home or self-care (01) ==
LOC: MFPLAB 10:03
DX: T14.8XXA Other injury of unspecified body region, initial encounter (principal)
CPT/HCPCS: 36415; 85240; 85245; 85246; 85302; 85303; 85305; 85306; 85379; 85610; 85730

== ENCOUNTER → 2025-02-13 | Outpatient (CLI) | payer BC, SELFPAY ==
[2025-02-15 13:08] LABS: HPV APTIMA, High Risk Negative (Negative)
== END | disposition home or self-care (01) ==
LOC: LABSPEC 11:58
PROVIDERS: Visit Provider Nurse Practitioner Women's Health
DX: N87.0 Mild cervical dysplasia (principal)
CPT/HCPCS: 87624; 88175; G0145